=== PATIENT | female | born 1940 | race Caucasian/White ===

== ENCOUNTER 2024-04-08 21:24 | Inpatient (IN) | payer MEDICARE, BC, SELFPAY ==
[2024-04-08 14:22] VITALS: BP 128/67
--- NOTE | 2024-04-08 15:44 | ED.GENMED ---
History of Present Illness
General
Chief Complaint: Bowel Problem
Source: patient and other (Friend)
Exam Limitations: none
Time Seen by Provider: 04/08/24 15:20
History of Present Illness
History of Present Illness:
83-year-old female has not had a bowel movement in 3 weeks. Using Colace and prunes. Appetite has been okay. No vomiting. No fever. History of slight irregular bowel movements especially when she goes away which she has.
Past History
Past History
ED Past Medical History: HTN and Hypercholesterolemia; Negative Asthma or NIDDM
ED Past Surgical History: Orthopedic (Back surgery Oct 14 2018)
Social History
Tobacco: Non-smoker
Alcohol: Occasional
Personal:
Living: with family
Review of Systems
Review of Systems
All Other Systems: Not applicable
Constitutional: Denies fever
ABD/GI: Denies vomiting or diarrhea
Phy Exam
Physical Exam
Physical Exam:
GENERAL: Alert and oriented in no apparent distress
EYE: Orbits normal.
NECK: Supple
CARDIAC: Regular rate and rhythm without any obvious murmurs.
LUNGS: Clear breath sounds,normal
ABDOMEN: Soft, bowel sounds present. No distention. Minimal nonlocalizing lower abdominal tenderness. No rebound or guarding no mass or hernia. No stool in the rectal vault
NEUROLOGICAL: Alert and oriented , grossly non-focal
SKIN: Warm and dry, no rash or lesion, no discoloration, skin intact.
MUSCULOSKELETAL: No edema,no deformity.Good color
PSYCH: Normal and appropriate interaction.
Course
Orders/Labs/Results
Orders:
Orders
04/08/24 16:04
CT Abd/pel W Iv And Oral Contr Urgent
Comment:
Reason For Exam: Lower abdominal pain/change in bowel pattern
IV Insert/Care/Rem.- Treatment PRN
0.9% Sodium Chloride 500 ml [Nss] 500 ml IV BOLUS
Iohexol [Omnipaque] See Protocol PO NOW STA
04/08/24 16:35
Complete Blood Count/With Diff Urgent
Comprehensive Metabolic Panel Urgent
Lipase Urgent
04/08/24 20:39
Piperacillin/Tazo 3.375 Gram [Zosyn] 3.375 gram in 50 ml IV NOW
04/08/24 21:09
Admit/Transfer Patient As Directed
Co-Sign Provider:
Level of Care: Inpatient admission
Assign to:: Medical/Surgical
Physician / Group: soha
Diagnosis: abscess
Reason for Hospitalization: abscess
Expected length of stay greater than two midnights?: Yes
ELOS- Estimated Length of Stay in days: 3
I certify the patient meets the requirements for IP care: Yes
04/08/24 21:10
PRN Pain Medication Management As Directed
May give lesser potent ordered pain med per pt: Yes
preference::
Protocol:: Medication orders for pain may be administered in a
manner that supports deferring to patient preference
when the pt is:
- Requesting an ordered lesser potent pain medication.
Least to most potent pain medications are defined
as: acetaminophen < NSAID < tramadol < opioids
(morphine, oxycodone, hydromorphone).
- Requesting a lesser dose of the same medication IF
ORDERED.
- Requesting a less intrusive route of administration
if both routes are prescribed by the provider (PO <
IV).
04/08/24 21:11
Code Status As Directed
Resuscitation Status: Full Code
04/08/24 22:00
Flush (0.9% Sodium Chloride) [Flush (Nss)] See Dose Instructions IV PER PROTOCOL
Abnormal Lab Results
04/08/24
16:35
RBC 3.96 L 10^6/uL
(4.20-5.40)
Hgb 10.3 L g/dL
(12.0-16.0)
Hct 31.9 L %
(37.0-47.0)
MCV 80.6 L fL
(81.0-99.0)
MCH 26.0 L pg
(27.0-31.0)
MCHC 32.3 L g/dL
(33.0-37.0)
Abs Immat Gran (auto) 0.1 H 10^3/uL
(0-0.05)
Absolute Neuts (auto) 8.1 H 10^3/uL
(1.4-6.5)
Absolute Monos (auto) 0.8 H 10^3/uL
(0.1-0.6)
Neutrophils % 78.9 H %
(42.2-75.2)
Lymphocytes % 12.3 L %
(20.5-51.1)
BUN 18 H mg/dl
(7-17)
Total Protein 5.9 L g/dl
(6.3-8.2)
Albumin 3.3 L g/dl
(3.5-5.0)
04/08/24 16:35
04/08/24 16:35
Vital Signs
Initial and Last Documented VS:
Initial Vital Signs
Temp Pulse Resp BP Pulse Ox
98.3 F 81 16 128/67 98
04/08/24 14:22 04/08/24 14:22 04/08/24 14:22 04/08/24 14:22 04/08/24 14:22
Last Documented Vital Signs
Temp Pulse Resp BP Pulse Ox
98.3 F 81 16 128/67 98
04/08/24 14:22 04/08/24 14:22 04/08/24 14:22 04/08/24 14:22 04/08/24 14:22
MDM/Problems Addressed
Differential Diagnosis Includes:
Patient with a change in her bowel habits over the last 3 weeks. Clinically nonsurgical abdomen. Rectal exam will be done. If patient has a fecal impaction we will manage this without further testing. However if there is no obvious explanation
for this change she will receive labs and a CT scan to rule out more serious etiology
*Radiology
Radiology exam reviewed: radiology read reviewed (Diverticular abscess with fistula)
*Pulse Oximetry
Patient hypoxic: no
*Critical Care Note
Total Time (30-74mins, 75-104mins- exclusive of procedures): Not Applicable
Data Reviewed
Review of Other/Old Records Reveals: Labs and Testing
Update Note
Update Note:
Rectal exam with no significant stool. Because of the lower abdominal discomfort and change in bowel pattern CT and labs are pending
ED Attending Note
-
Portions of this chart may have been created with voice recognition software.� Occasional wrong word or��sound alike� substitutions may have occurred due to the inherent limitations of voice recognition software.
Discharge Plan
Departure
Patient Disposition: Admit
Date of Disposition: 04/08/24
Time of Disposition: 20:40
Presentation/result/management discussed w/ accepting MD/DO: Hospitalist
Discharge Problem:
Diverticular abscess with fistula
Prescriptions:
No Action
losartan 50 mg Tablet
50 mg PO DAILY
atorvastatin 10 mg Tablet
10 mg PO DAILY
cyanocobalamin (vitamin B-12) 1,000 mcg Tablet
1,000 mcg PO DAILY
ferrous sulfate 325 mg (65 mg iron) Tablet
325 mg PO DAILY
carbidopa-levodopa 25-100 mg Tablet
1 tab PO TID@0800,1330,1930
Patient Comments:
04/08/24: Patient states she missed her 19:30 dose today
cholecalciferol (vitamin D3) [Vitamin D3] 25 mcg (1,000 unit) Tablet
25 mcg PO DAILY
Referrals:
Barbie Lay MD [Family Provider] -
Interventions
Interventions:
*Risk Screen - Suicide Last Done: 04/08/24 14:24
*General Assessment Last Done: 04/08/24 14:24
*Neglect/Abuse Screening Last Done: 04/08/24 14:24
*ED COVID-19 Vaccine History Last Done: 04/08/24 15:28
[facility] Assessment Last Done: 04/08/24 15:28
Discharge Date and Time
Print Language: FRENCH
[2024-04-08 16:30] VITALS: BP 136/74
[2024-04-08] MEDS: NSS 500 IV (16:37)
[2024-04-08] MEDS: OMNIPAQUE 50 ML PO (16:52)
[2024-04-08 17:01] LABS: % Basophils 0.3 % (0-2); % Eosinophils 0.7 % (0-6); % Immature Granulocytes 0.5 % (0-0.5); % Lymphocytes 12.3 % (20.5-51.1); % Monocytes 7.3 % (1.7-9.3); % Neutrophils 78.9 % (42.2-75.2); Absolute Eosinophils 0.1 10^3/uL (0-0.7); Absolute Immature Granulocytes 0.1 10^3/uL (0-0.05); Absolute Lymphocytes 1.3 10^3/uL (1.2-3.4); Absolute Monocytes 0.8 10^3/uL (0.1-0.6); Absolute Neutrophils 8.1 10^3/uL (1.4-6.5); Hematocrit 31.9 % (37.0-47.0); Hemoglobin 10.3 g/dL (12.0-16.0); Mean Corp Hgb Conc. 32.3 g/dL (33.0-37.0); Mean Corpuscular Volume 80.6 fL (81.0-99.0); Mean Platelet Volume 8.9 fL (7.4-10.4); Nucleated Red Blood Cells % 0 %; Platelet Count 307 10^3/uL (130-400); Red Blood Cell Count 3.96 10^6/uL (4.20-5.40); Red Cell Dist. Width 13.8 % (11.5-14.5); White Blood Cell Count 10.3 10^3/uL (4.8-10.8)
[2024-04-08 17:05] VITALS: BP 150/82
[2024-04-08 17:18] LABS: ALT (SGPT) < 10 U/L (0-35); AST (SGOT) 18 U/L (14-36); Albumin 3.3 g/dl (3.5-5.0); Alkaline Phosphatase 86 U/L (38-126); Blood Urea Nitrogen 18 mg/dl (7-17); Calcium 8.8 mg/dl (8.4-10.2); Carbon Dioxide 27 mmol/L (22-30); Chloride 104 mmol/L (98-107); Glucose 91 mg/dl (70-99); Lipase 54 U/L (23-300); Potassium 3.8 mmol/L (3.5-5.1); Sodium 138 mmol/L (135-145); Total Bilirubin 0.6 mg/dl (0.2-1.3); Total Protein 5.9 g/dl (6.3-8.2); eGFR > 60.00
[2024-04-08 18:00] VITALS: BP 147/76
--- NOTE | 2024-04-08 20:42 | HPS.HSE ---
Family Physician
-
Family Physician: Barbie Lay
Chief Complaint
-
constipation
abdominal distention
History of Present Illness
83-year-old female with past medical history for hypertension, hyperlipidemia, Parkinson's disease presented to us with constipation for the past 3 weeks. has not had a bowel movement in one week. stated intermittent small hard stools for past
three weeks but no BM in one week. denied n/v/ abdominal pain. her appetite is good. Using Colace and prunes. denied fever chills, headache, dizziness, syncopal episode. Patient denied chest pain or short of breath. Patient denied
dysuria,hematuria.
CT with CT findings compatible with a left pelvic peridiverticular abscess. This abscess extends to the left superior bladder wall and there is air within the anterior bladder lumen. Findings are considered suspicious for a colovesical fistula as a
result of diverticulitis. As an alternative, if the patient has been recently catheterized, air could've been introduced into the bladder from catheterization.
Patient received a dose of Zosyn in ER. Admitting for further management
Medical History
Past Medical History
Past Medical History: Reports Other
Additional Past Medical History:
Right lumbar radiculopathy
Degenerative disc disease
Hyperlipidemia
GI bleed
Left rotator cuff tear
osteoarthritis
Anxiety
Hypertension
Parkinson's
Past Surgical History: Reports Other
Additional Past Surgical History:
Laminectomy
Social History
Tobacco: Non-smoker
Alcohol: Occasional
Drug: None
Personal: Single
Living: Alone
Family History
Family History: Not pertinent
Allergies / Home Medications
Allergies reflects when Allergies were last updated in [facility].
Home Medications with original date entered in [facility]
Allergy/Medication List:
Allergies
Allergy/AdvReac Type Severity Reaction Status Date / Time
No Known Allergies Allergy Verified 04/08/24 14:22
Home Medications
atorvastatin 10 mg tablet 10 mg PO DAILY 04/08/24
carbidopa 25 mg-levodopa 100 mg tablet 1 tab PO TID@0800,1330,1930 04/08/24
cholecalciferol (vitamin D3) 25 mcg (1,000 unit) tablet (Vitamin D3) 25 mcg PO DAILY 04/08/24
cyanocobalamin (vitamin B-12) 1,000 mcg tablet 1,000 mcg PO DAILY 04/08/24
ferrous sulfate 325 mg (65 mg iron) tablet 325 mg PO DAILY 04/08/24
losartan 50 mg tablet 50 mg PO DAILY 04/08/24
Review of Systems
-
Constitutional: Reports No Symptoms
EENT: Reports No Symptoms
Respiratory: Reports No Symptoms
Cardiac: Reports No Symptoms
Abdomen/GI: Reports No Symptoms and Constipated
: Reports No Symptoms
Musculoskeletal: Reports No Symptoms
Skin: Reports No Symptoms
Neurological: Reports No Symptoms
Endocrine: Reports No Symptoms
Hematologic/Lymphatic: Reports No Symptoms
Psych: Reports No Symptoms
Physical Exam
Vital Signs
Vital Signs
Temp Pulse Resp BP Pulse Ox
98.3 F 81 16 128/67 98
04/08/24 14:22 04/08/24 14:22 04/08/24 14:22 04/08/24 14:22 04/08/24 14:22
Physical Exam
General: Well Developed, Well Nourished and No Apparent Distress
HEENT: NormoCephalic, Moist mucous membranes and Atraumatic
Respiratory: Clear
Cardiac: S1/S2 and Regular Rhythm; No Murmur or Rub
GI: Soft, Normal Bowel Sounds, Tender (Left lower quadrant) and Distended; No Organomegaly
Rectal: Deferred by Provider
Musculoskeletal: No Clubbing, No Cyanosis and No Edema
Skin: No Rash
Neuro: AO x 3 and Nonfocal/grossly intact
Psych: Calm
Laboratory Results
-
04/08/24 16:35
04/08/24 16:35
Laboratory Results
Total Bilirubin 0.6 mg/dl (0.2-1.3) 04/08/24 16:35
AST 18 U/L (14-36) 04/08/24 16:35
ALT < 10 U/L (0-35) 04/08/24 16:35
Alkaline Phosphatase 86 U/L (38-126) 04/08/24 16:35
Lipase 54 U/L (23-300) 04/08/24 16:35
Data Reviewed
-
CT Scan: Report Reviewed by me
Lab Data: Labs Reviewed by me
Impression/Plan
-
# Diverticular abscess/partial colonic obstruction
-CT abdomen pelvis with impression of CT findings compatible with a left pelvic peridiverticular abscess. This abscess extends to the left superior bladder wall and there is air within the anterior bladder lumen. Findings are considered suspicious
for a colovesical fistula as a result of diverticulitis. As an alternative, if the patient has been recently catheterized, air could've been introduced into the bladder from catheterization.No evidence of free intraperitoneal air.Moderate to large
amount of stool within the colon proximal to the region of diverticulitis, suggesting constipation/partial colonic obstruction. No significant dilation of small bowel loops.Coronary artery calcifications. Please correlate with symptoms of and risk
factors for coronary artery disease, with further workup as clinically appropriate.Aortic valvular calcifications. Please correlate with any clinical signs or symptoms that would suggest significant aortic stenosis.Cholelithiasis. No CT findings to
suggest acute cholecystitis.8 mm calcification within the left anterior uterus, likely a small calcified fibroid.Bony degenerative changes as described.
-iv Zosyn continued
-Tylenol prn for fever
-Clear liquid diet
-colorectal consulted
# Anemia likely iron deficiency
-ferrous sulfate
-Hemoglobin 10.3
-No active bleeding
-Continue to monitor
# Hypertension
-Blood pressure stable in ER
-Losartan continued
# Hyperlipidemia
-Lipitor continued
# History of Parkinson's
-Carbidopa continued
# DVT prophylaxis
-Subcu heparin
#CODE status
-full code
--- NOTE | 2024-04-08 21:13 | W.PN.UPDATE ---
Update Note
Progress Note Update
This is an addendum to the H&P written by Sil Lord on 04/08/2024. Patient seen and examined independently with [employer].
83-year-old female past medical history of Parkinson disease, hypertension, hypercholesterolemia presenting with constipation for the last several weeks with abdominal distention and some left lower quadrant abdominal pain. No urinary symptoms.
CT scan shows evidence of diverticulitis with left pelvic peridiverticular abscess. Abscess extends to the left superior bladder wall area within the anterior bladder lumen suspicious for colovesicular fistula. There is also evidence of partial
colonic obstruction. IV fluids given in ER. Clear liquid diet. Zosyn. Colorectal surgery consulted.
[2024-04-08] MEDS: ZOSYN 50 IV (21:26)
[2024-04-08 22:00] VITALS: BP 145/72
[2024-04-09] VITALS (9 sets, daily range): BP systolic 121–147; BP diastolic 66–83; PULSE 85; O2SAT 98; BMI 25.0; BMI 26.3
[2024-04-09] MEDS: ZOSYN 50 IV ×4 (03:42→21:48)
[2024-04-09 06:46] LABS: Hematocrit 33.3 % (37.0-47.0); Hemoglobin 10.7 g/dL (12.0-16.0); Mean Corp Hgb Conc. 32.1 g/dL (33.0-37.0); Mean Corpuscular Hgb 26.4 pg (27.0-31.0); Mean Platelet Volume 9.1 fL (7.4-10.4); Platelet Count 283 10^3/uL (130-400); Red Blood Cell Count 4.06 10^6/uL (4.20-5.40); Red Cell Dist. Width 13.6 % (11.5-14.5); White Blood Cell Count 12.4 10^3/uL (4.8-10.8)
[2024-04-09 06:55] LABS: Blood Urea Nitrogen 14 mg/dl (7-17); Calcium 8.6 mg/dl (8.4-10.2); Carbon Dioxide 27 mmol/L (22-30); Chloride 105 mmol/L (98-107); Estimated Creatinine Clearance 37 ml/min; Glucose 81 mg/dl (70-99); Potassium 3.9 mmol/L (3.5-5.1); Sodium 138 mmol/L (135-145); eGFR > 60.00
[2024-04-09] MEDS: LIPITOR 10 MG PO (08:13)
[2024-04-09] MEDS: HEPARIN 5000 UNITS SC ×2 (08:16→20:26)
[2024-04-09] MEDS: SINEMET 25-100 1 TABLET PO ×3 (08:16→20:00)
--- NOTE | 2024-04-09 09:17 | CON.CRS ---
Consultation
-
Reason for Consultation: diverticulitis
Medical History
-
Chief Complaint: constipation
History of Present Illness:
83-year-old female with no prior history of diverticulitis in the ER with 6 severe constipation as a main complaint. On discussion she describes having no bowel movements for 3 weeks. However on sorting out details, it sounds like 3 weeks ago she
started having small pebble-like BMs and has not had any passage of material transanally for about a week. She does admit to flatus however. Denies nausea or vomiting. Denies fevers or chills. Denies pain. Denies dysuria. No history of UTIs.
Blood work last night revealed elevated white blood cell count of 12.4. Vitals reasonable. CT scan abdomen and pelvis performed. Images and report reviewed. I reviewed them with Dr. Kaplan of interventional radiology. This reveals sigmoid
diverticulosis with likely diverticulitis with small abscess between the sigmoid colon and the bladder which is not amenable to IR drain placement. There is an air-fluid level in the bladder most likely consistent with colovesical fistula. There
is a decent amount of stool throughout the colorectum. The report relates that there may be at least partial large bowel obstruction. Dr. Kaplan was not impressed with this aspect. Of note the patient has no prior history abdominal surgeries.
She has been tolerating a diet. She has undergone colonoscopies in the past and the [facility] area. Her last was maybe 6 years ago. She relates that she has had no polyps but has had diverticulosis. She was told she needs no further
colonoscopies given age
Past Medical History
Past Medical History: HTN, Hypercholesterolemia, Psychiatric (Anxiety) and Other (Parkinson's)
Past Surgical History: Other (Back surgery)
Social History
Tobacco: Non-Smoker
Alcohol: Occasional
Living: Alone
Family History
Family History: Reviewed & Not Pertinent
Allergies / Home Medications
Allergy/AdvReac Type Severity Reaction Status Date / Time
No Known Allergies Allergy Verified 04/08/24 14:22
�Medication �Instructions �Recorded �Confirmed �Type
atorvastatin 10 mg tablet 10 mg PO DAILY 04/08/24 04/08/24 History
carbidopa 25 mg-levodopa 100 mg 1 tab PO TID@0800,1330,1930 04/08/24 04/08/24 History
tablet
cholecalciferol (vitamin D3) 25 25 mcg PO DAILY 04/08/24 04/08/24 History
mcg (1,000 unit) tablet (Vitamin
D3)
cyanocobalamin (vitamin B-12) 1,000 mcg PO DAILY 04/08/24 04/08/24 History
1,000 mcg tablet
ferrous sulfate 325 mg (65 mg 325 mg PO DAILY 04/08/24 04/08/24 History
iron) tablet
losartan 50 mg tablet 50 mg PO DAILY 04/08/24 04/08/24 History
Review of Systems
-
A 10 point review of systems was completed, and was negative except as per HPI.
Physical Exam
Vital Signs
Temp 98.5 F 04/09/24 01:49
Pulse 80 04/09/24 03:52
Resp Rate 16 04/09/24 03:52
Blood pressure 144/66 04/09/24 03:52
SaO2 96 04/09/24 03:52
04/08/24 04/09/24 04/10/24
06:59 06:59 06:59
Actual Weight 60 kg
Body Mass Index (BMI) 25.0
Lab Results / Allergies
04/09/24 06:20
04/09/24 06:20
WBC 12.4 10^3/uL (4.8-10.8) H 04/09/24 06:20
Hgb 10.7 g/dL (12.0-16.0) L 04/09/24 06:20
Hct 33.3 % (37.0-47.0) L 04/09/24 06:20
Plt Count 283 10^3/uL (130-400) 04/09/24 06:20
Abs Immat Gran (auto) 0.1 10^3/uL (0-0.05) H 04/08/24 16:35
Neutrophils % 78.9 % (42.2-75.2) H 04/08/24 16:35
Allergy/AdvReac Type Severity Reaction Status Date / Time
No Known Allergies Allergy Verified 04/08/24 14:22
Physical Exam
General: Well Developed
Cardiac: Regular Rhythm
GI: Soft, Non Tender and Distended (Mild)
Musculoskeletal: No Clubbing, No Cyanosis and No Edema
Skin: Warm and Dry
Neuro: AO x 3
Psych: Calm
Data Reviewed
-
CT Scan: Image Personally Visualized and interpreted, Report Reviewed by me, Discussed with Physician and Discussed with Patient
Labs: Labs Reviewed by me and Discussed with Patient
Assessment / Plan
-
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 Interestingly no tenderness on exam. Denies urinary symptoms as well.
Her main complaint is obstipation.
Plan:
1. Agree with admission for IV antibiotics.
2. Agree with diet restriction.
3. Check urinalysis.
4. On discussion with Dr. Kaplan regarding the question of partial large bowel obstruction or stricture, he suggested plain abdominal x-rays. The oral contrast may have moved through. As a backup CT of the pelvis would be an option. Will order
the abdominal x-ray and go from there.
5. Hopefully we can get this patient through this hospitalization without surgery, which may require colostomy. If she avoids surgery during this admission, she will need follow-up with us for likely planned elective sigmoidectomy with takedown of
fistula.
6. Will follow along.
[2024-04-09] MEDS: COZAAR PO (11:09)
[2024-04-09 11:27] LABS: Urine Albumin Trace (Neg - Trace); Urine Bilirubin Negative (Negative); Urine Character Clear (Clear); Urine Color Yellow; Urine Glucose Negative (Negative); Urine Ketone Negative (Negative); Urine Leukocyte 2+ (Negative); Urine Nitrite Negative (Negative); Urine Occult Blood 2+ (Negative); Urine Urobilinogen Negative (Neg - 1+)
[2024-04-09 11:33] LABS: Urine Bacteria Few (Negative); Urine Squamous Cell 21-25 /LPF (Few); Urine White Cell 30-40 /HPF (0-5)
--- NOTE | 2024-04-09 12:49 | W.PN.UPDATE ---
Update Note
Progress Note Update
Patient's abdominal plain film reviewed. Oral contrast in small bowel and right colon. Has not reached rectosigmoid as of yet. It was described as a 'nonobstructive pattern '. Will order fleets enema. Repeat abdominal x-ray ordered for a.m. as
well.
--- NOTE | 2024-04-09 13:01 | W.PN.HOSP.TC ---
Today's Communication/Plan
-
Monitor vital signs stable
Received enema today
Continue antibiotics
N.p.o. for now
Abdomen x-ray tomorrow
Assessment / Plan
Assessment / Plan
General: Well Developed, Well Nourished and No Apparent Distress
HEENT: NormoCephalic, Moist mucous membranes and Atraumatic
Respiratory: Clear
Cardiac: S1/S2 and Regular Rhythm; No Murmur or Rub
GI: Soft, Normal Bowel Sounds, Tender (Left lower quadrant) and Distended
Musculoskeletal: No Edema
Neuro: AO x 3 and Nonfocal/grossly intact
Psych: Calm
-CT abdomen pelvis with impression of CT findings compatible with a left pelvic peridiverticular abscess. This abscess extends to the left superior bladder wall and there is air within the anterior bladder lumen. Findings are considered suspicious
for a colovesical fistula as a result of diverticulitis. As an alternative, if the patient has been recently catheterized, air could've been introduced into the bladder from catheterization.No evidence of free intraperitoneal air.Moderate to large
amount of stool within the colon proximal to the region of diverticulitis, suggesting constipation/partial colonic obstruction. No significant dilation of small bowel loops.Coronary artery calcifications. Please correlate with symptoms of and risk
factors for coronary artery disease, with further workup as clinically appropriate.Aortic valvular calcifications. Please correlate with any clinical signs or symptoms that would suggest significant aortic stenosis.Cholelithiasis. No CT findings to
suggest acute cholecystitis.8 mm calcification within the left anterior uterus, likely a small calcified fibroid.Bony degenerative changes as described.
Diverticular abscess/partial colonic obstruction
-iv Zosyn continued
-Tylenol prn for fever
NPO
-colorectal following. Discussed operative and nonoperative management with patient. Currently managing nonoperatively with serial x-ray.
constipated; cw enema
Suspect UTI
Continue antibiotics
Follow urine culture
# Anemia likely iron deficiency
-ferrous sulfate
-No active bleeding
-Continue to monitor
# Hypertension
-Losartan continued
# Hyperlipidemia
-Lipitor continued
# History of Parkinson's
-Carbidopa continued
# DVT prophylaxis
-Subcu heparin
#CODE status
-full code
Anticipated Discharge: > 48 hours
Subjective/Interval History
-
Date of Service: April 09, 2024
denies pain
Objective Data
-
Labs:
Laboratory Results
04/09/24
06:20
WBC 12.4 H
Hgb 10.7 L
Hct 33.3 L
Plt Count 283
Sodium 138
Potassium 3.9
Chloride 105
Carbon Dioxide 27
BUN 14
Creatinine 0.9
Glucose 81
Calcium 8.6
Vital Signs:
Vital Signs
Temp Pulse Resp BP Pulse Ox
98.5 F 80 16 144/66 96
04/09/24 01:49 04/09/24 03:52 04/09/24 03:52 04/09/24 03:52 04/09/24 03:52
I&O
04/08/24 04/09/24 04/10/24
06:59 06:59 06:59
Output Total 525 / 525
Balance -525 / -525
[2024-04-09] MEDS: FLEET PHOSPHATE ENEMA-ADULT 135 ML RECTAL (13:24)
--- NOTE | 2024-04-09 15:47 | PTOTSP ---
Physician: Please provide OT Evaluation and Treat order to allow assessment of ALS. thank you
[2024-04-10] MEDS: ZOSYN 50 IV ×4 (03:29→22:13)
[2024-04-10 07:00] VITALS: BP 124/70
[2024-04-10] MEDS: LIPITOR 10 MG PO (07:47)
[2024-04-10] MEDS: SINEMET 25-100 1 TABLET PO ×3 (07:47→19:28)
[2024-04-10] MEDS: COZAAR 50 MG PO (07:47)
[2024-04-10] MEDS: HEPARIN 5000 UNITS SC ×2 (07:49→19:28)
[2024-04-10 08:31] LABS: Blood Urea Nitrogen 17 mg/dl (7-17); Calcium 9.1 mg/dl (8.4-10.2); Carbon Dioxide 23 mmol/L (22-30); Chloride 101 mmol/L (98-107); Estimated Creatinine Clearance 33 ml/min; Glucose 52 mg/dl (70-99); Potassium 3.8 mmol/L (3.5-5.1); Sodium 139 mmol/L (135-145); eGFR 50.48
[2024-04-10 09:08] LABS: Glucose - Point of Care 76 mg/dl (70-99)
[2024-04-10 09:22] LABS: Hematocrit 37.9 % (37.0-47.0); Mean Corp Hgb Conc. 31.7 g/dL (33.0-37.0); Mean Platelet Volume 9.5 fL (7.4-10.4); Platelet Count 352 10^3/uL (130-400); Red Blood Cell Count 4.62 10^6/uL (4.20-5.40); White Blood Cell Count 13.3 10^3/uL (4.8-10.8)
--- NOTE | 2024-04-10 11:48 | W.PN.HOSP.TC ---
Today's Communication/Plan
-
Monitor vital signs and see plan
Continue to monitor
Leukocytosis noted
Surgery to see today
Abdominal x-ray
Assessment / Plan
Assessment / Plan
General: Well Developed, Well Nourished and No Apparent Distress
HEENT: NormoCephalic, Moist mucous membranes and Atraumatic
Respiratory: Clear
Cardiac: S1/S2 and Regular Rhythm; No Murmur or Rub
GI: Soft, Normal Bowel Sounds, Tender (Left lower quadrant) and Distended
Musculoskeletal: No Edema
Neuro: AO x 3 and Nonfocal/grossly intact
Psych: Calm
-CT abdomen pelvis with impression of CT findings compatible with a left pelvic peridiverticular abscess. This abscess extends to the left superior bladder wall and there is air within the anterior bladder lumen. Findings are considered suspicious
for a colovesical fistula as a result of diverticulitis. As an alternative, if the patient has been recently catheterized, air could've been introduced into the bladder from catheterization.No evidence of free intraperitoneal air.Moderate to large
amount of stool within the colon proximal to the region of diverticulitis, suggesting constipation/partial colonic obstruction. No significant dilation of small bowel loops.Coronary artery calcifications. Please correlate with symptoms of and risk
factors for coronary artery disease, with further workup as clinically appropriate.Aortic valvular calcifications. Please correlate with any clinical signs or symptoms that would suggest significant aortic stenosis.Cholelithiasis. No CT findings to
suggest acute cholecystitis.8 mm calcification within the left anterior uterus, likely a small calcified fibroid.Bony degenerative changes as described.
Diverticular abscess/partial colonic obstruction
-iv Zosyn continued
-Tylenol prn for fever
NPO
-colorectal following. Discussed operative and nonoperative management with patient. Currently managing nonoperatively with serial x-ray.
constipated; cw enema
xray today pending
Suspect UTI
dysuria,increase frequency
Continue antibiotics
urine culture contaminant
# Anemia likely iron deficiency
-ferrous sulfate
-No active bleeding
-Continue to monitor
# Hypertension
-Losartan continued
# Hyperlipidemia
-Lipitor continued
# History of Parkinson's
-Carbidopa continued
# DVT prophylaxis
-Subcu heparin
#CODE status
-full code
I spent a total of 51 minutes with the patient or on the floor. More than 50% of this time involved counseling and coordination of care.
Anticipated Discharge: > 48 hours
Subjective/Interval History
-
Date of Service: April 10, 2024
denies nausea
Objective Data
-
Labs:
Laboratory Results
04/10/24
07:02
WBC 13.3 H
Hgb 12.0
Hct 37.9
Plt Count 352 D
Sodium 139
Potassium 3.8
Chloride 101
Carbon Dioxide 23
BUN 17
Creatinine 1.1 H
Glucose 52 L*
Calcium 9.1
Vital Signs:
Vital Signs
Temp Pulse Resp BP Pulse Ox
97.8 F 90 18 124/70 99
04/10/24 07:00 04/10/24 07:00 04/10/24 07:00 04/10/24 07:00 04/10/24 07:50
I&O
04/09/24 04/10/24 04/11/24
06:59 06:59 06:59
Output Total 525 / 525
Balance -525 / -525
[2024-04-10] MEDS: D5/0.9% SODIUM CHLORIDE 1000 IV (12:28)
[2024-04-10 13:16] VITALS: BMI 26.3
--- NOTE | 2024-04-10 14:04 | W.PN.GS2 ---
Addendum entered and electronically signed by Damian Ricci MD 04/10/24 15:23:
Patient seen and examined with surgical PRESS HAND. Agree with documented progress note. This is a delayed entry.
Overall patient states that she is feeling better still with some discomfort. Denies pain. Several stools after enema yesterday.
AFVSS
NAD AAOx3; sitting up comfortably in the chair at her hospital bedside.
Abdomen: Soft, protuberant, nontender.
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
Clinically improving will start on trial of
Clears
Follow-up abdominal x-ray tomorrow to monitor for progression of previously administered oral contrast.
Original Note:
Today's Communication / Plan
-
Trial of clears
Assessment / Plan
-
83 yo female presenting with no BM x3 weeks with CT imaging demonstrating sigmoid diverticulitis with abscess extending into the left superior bladder wall with air into the bladder lumen suggestive of colovesical fistula, large stool burden.
AFVSS
Mild leukocytosis, trending up
Urine cx with multiple organisms
No pain/tenderness
+BM after enema
XR in follow up with PO contrast which has not progressed beyond the proximal colon
--Trial of clears
--Continue ABX
--Trend labs/exams
--XR in am
No plans for emergent surgery but may require surgical intervention this admission vs planned elective surgery after recovered from this current illness
Subjective Data
-
Date of Service: April 10, 2024
Patient seen and examined at bedside with Dr. Ricci. Denies n/v. Feels quite hungry. Passed a large stool s/p enema and several small stools with voids. Denies pain.
Objective Data
-
Intake and Output
0804/10/24 04/11/24
06:59 06:59 06:59
Output Total 525 / 525
Balance -525 / -525
Output:
Urine, Voided 525 / 525
Other:
Number of approximated MODERATE 2
amounts of urine
Vital Signs
Temp Pulse Resp BP Pulse Ox
97.8 F 90 18 124/70 99
04/10/24 07:00 04/10/24 07:00 04/10/24 07:00 04/10/24 07:00 04/10/24 07:50
Lab Results
04/10/24 07:02
04/10/24 07:02
Calcium 9.1 mg/dl (8.4-10.2) 04/10/24 07:02
Total Bilirubin 0.6 mg/dl (0.2-1.3) 04/08/24 16:35
AST 18 U/L (14-36) 04/08/24 16:35
ALT < 10 U/L (0-35) 04/08/24 16:35
Alkaline Phosphatase 86 U/L (38-126) 04/08/24 16:35
Total Protein 5.9 g/dl (6.3-8.2) L 04/08/24 16:35
Albumin 3.3 g/dl (3.5-5.0) L 04/08/24 16:35
Physical Exam
-
NAD
ABD softly distended, NT, PRESS HAND
--- NOTE | 2024-04-10 14:18 | CM ---
branch general manager reviewed patient's chart and met with patient and patient states she lives alone in a 2 story home with one step to enter, patient is independent with adl's and ambulation, no dme, patient drives.
Pharm[facility]: [facility]
PCP: Dr. Lay
Plan; Home when stable.
[2024-04-10 15:00] VITALS: BP 91/61
[2024-04-10 23:05] VITALS: BP 116/66
[2024-04-11] MEDS: ZOSYN 50 IV ×4 (04:26→21:52)
[2024-04-11] MEDS: COZAAR 50 MG PO (07:50)
[2024-04-11 07:51] VITALS: BP 128/72
[2024-04-11] MEDS: LIPITOR 10 MG PO (07:51)
[2024-04-11] MEDS: HEPARIN 5000 UNITS SC ×2 (07:51→19:43)
[2024-04-11] MEDS: SINEMET 25-100 1 TABLET PO ×3 (07:54→19:43)
[2024-04-11 09:18] LABS: Blood Urea Nitrogen 18 mg/dl (7-17); Calcium 8.7 mg/dl (8.4-10.2); Carbon Dioxide 26 mmol/L (22-30); Chloride 103 mmol/L (98-107); Estimated Creatinine Clearance 40 ml/min; Glucose 130 mg/dl (70-99); Potassium 3.7 mmol/L (3.5-5.1); Sodium 137 mmol/L (135-145); eGFR > 60.00
[2024-04-11] MEDS: D5/0.9% SODIUM CHLORIDE 1000 IV (10:37)
--- NOTE | 2024-04-11 10:45 | W.PN.GS2 ---
Addendum entered and electronically signed by Damian Ricci MD 04/11/24 12:40:
Patient seen and examined with nurse practitioner. Agree with documented progress note.
Patient continues to report no significant symptoms. Denies abdominal pain, denies nausea, denies vomiting.
Passing flatus on occasion and some semisolid stool.
AFVSS
NAD AAOx3
ABD: Softly protuberant, nontender
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
Clinically improving
Full liquid diet
Original Note:
Today's Communication / Plan
-
Full liquids
Assessment / Plan
-
83 yo female presenting with no BM x3 weeks with CT imaging demonstrating sigmoid diverticulitis with abscess extending into the left superior bladder wall with air into the bladder lumen suggestive of colovesical fistula, large stool burden.
AFVSS
Labs for today pending
Urine cx with multiple organisms
No pain/tenderness
+BMs, tolerating clears
XR in follow up with PO contrast which has not progressed much beyond the proximal colon
--Advance to full liquids
--Continue ABX
--Trend labs/exams
No plans for emergent surgery but may require surgical intervention this admission vs planned elective surgery after recovered from this current illness
Subjective Data
-
Date of Service: April 11, 2024
Patient seen and examined at bedside with Dr. Ricci. Denies n/v. Denies pain. Notes she passed a stool this am with mixed liquid and solid material.
Objective Data
-
Intake and Output
04/10/24 04/11/24 04/12/24
06:59 06:59 06:59
Intake Total 820 / 820
Balance 820 / 820
Intake:
IV fluids (Total) 720 / 720
IV piggybacks 100 / 100
Other:
Number of approximated MODERATE 2 2
amounts of urine
Vital Signs
Temp Pulse Resp BP Pulse Ox
98.3 F 86 18 128/72 91
04/11/24 07:51 04/11/24 07:51 04/11/24 07:51 04/11/24 07:51 04/11/24 07:51
Lab Results
04/11/24 07:49
Calcium 8.7 mg/dl (8.4-10.2) 04/11/24 07:49
Total Bilirubin 0.6 mg/dl (0.2-1.3) 04/08/24 16:35
AST 18 U/L (14-36) 04/08/24 16:35
ALT < 10 U/L (0-35) 04/08/24 16:35
Alkaline Phosphatase 86 U/L (38-126) 04/08/24 16:35
Total Protein 5.9 g/dl (6.3-8.2) L 04/08/24 16:35
Albumin 3.3 g/dl (3.5-5.0) L 04/08/24 16:35
Physical Exam
-
NAD
ABD softly distended, NT, FINISHER SCREWDOWN
[2024-04-11 11:10] LABS: Hematocrit 34.7 % (37.0-47.0); Hemoglobin 11.6 g/dL (12.0-16.0); Mean Corp Hgb Conc. 33.4 g/dL (33.0-37.0); Mean Corpuscular Volume 80.7 fL (81.0-99.0); Mean Platelet Volume 9.7 fL (7.4-10.4); Platelet Count 301 10^3/uL (130-400); White Blood Cell Count 12.5 10^3/uL (4.8-10.8)
--- NOTE | 2024-04-11 11:53 | W.PN.HOSP.TC ---
Today's Communication/Plan
-
Monitor vital signs see plan
cw abx
Trial of fulls
Colorectal surgery following
Assessment / Plan
Assessment / Plan
General: Well Developed, Well Nourished and No Apparent Distress
HEENT: NormoCephalic, Moist mucous membranes and Atraumatic
Respiratory: Clear
Cardiac: S1/S2 and Regular Rhythm; No Murmur or Rub
GI: Soft, Normal Bowel Sounds, Tender (Left lower quadrant)
Musculoskeletal: No Edema
Neuro: AO x 3 and Nonfocal/grossly intact
Psych: Calm
-CT abdomen pelvis with impression of CT findings compatible with a left pelvic peridiverticular abscess. This abscess extends to the left superior bladder wall and there is air within the anterior bladder lumen. Findings are considered suspicious
for a colovesical fistula as a result of diverticulitis. As an alternative, if the patient has been recently catheterized, air could've been introduced into the bladder from catheterization.No evidence of free intraperitoneal air.Moderate to large
amount of stool within the colon proximal to the region of diverticulitis, suggesting constipation/partial colonic obstruction. No significant dilation of small bowel loops.Coronary artery calcifications. Please correlate with symptoms of and risk
factors for coronary artery disease, with further workup as clinically appropriate.Aortic valvular calcifications. Please correlate with any clinical signs or symptoms that would suggest significant aortic stenosis.Cholelithiasis. No CT findings to
suggest acute cholecystitis.8 mm calcification within the left anterior uterus, likely a small calcified fibroid.Bony degenerative changes as described.
Diverticular abscess/partial colonic obstruction
-iv Zosyn continued
-Tylenol prn for fever
trial of fulls per surgery
-colorectal following. Discussed operative and nonoperative management with patient. Currently managing nonoperatively with serial x-ray.
constipated
xray today slight progression of the oral contrast which now partially opacifies the transverse colon. Mild/moderate colonic stool burden.
Suspect UTI
dysuria,increase frequency; improving
Continue antibiotics; should cover for UTI
urine culture contaminant
# Anemia likely iron deficiency
-ferrous sulfate
-No active bleeding
-Continue to monitor
# Hypertension
-Losartan continued
# Hyperlipidemia
-Lipitor continued
# History of Parkinson's
-Carbidopa continued
# DVT prophylaxis
-Subcu heparin
#CODE status
-full code
Anticipated Discharge: 24 - 48 hours
Subjective/Interval History
-
Date of Service: April 11, 2024
denies pain
Objective Data
-
Labs:
Laboratory Results
04/11/24
07:49
WBC 12.5 H
Hgb 11.6 L
Hct 34.7 L
Plt Count 301
Sodium 137
Potassium 3.7
Chloride 103
Carbon Dioxide 26
BUN 18 H
Creatinine 0.9
Glucose 130 H
Calcium 8.7
Vital Signs:
Vital Signs
Temp Pulse Resp BP Pulse Ox
98.3 F 86 18 128/72 94
04/11/24 07:51 04/11/24 07:51 04/11/24 07:51 04/11/24 07:51 04/11/24 11:07
I&O
04/10/24 04/11/24 04/12/24
06:59 06:59 06:59
Intake Total 820 / 820
Balance 820 / 820
[2024-04-11] MEDS: ZOFRAN 4 MG IV (14:50)
[2024-04-11 15:19] VITALS: BP 106/60
--- NOTE | 2024-04-11 15:33 | PTCARENOTE ---
Diet increased to FULL liquids for lunch. Pt ate soup, custard and a few bites of ice cream and became nauseated and c/o 'retching a few times' Pt reports feeling as if food was refluxing and she felt flushed. Pt made NPO, notified and order
placed for NPO status and IV Zofran. IV ZOfran given and is effective for relief of nausea. Pt verbalizes understanding of NPO status and compliant. Pt is currently visiting with friends at bedside.
--- NOTE | 2024-04-11 16:51 | PTCARENOTE ---
Addendum entered by Ceci Snow RN 04/11/24 16:53:
Patient ambulating sosa with 1 assist and tolerated approx 480 feet
Original Note:
Patient OOB with rolling walker this am, gait very unsteady and rigid this am. Pt gait less rigid this afternoon with wheeled walker, but still appears unsteady gait and feet too close together causing off balance.
--- NOTE | 2024-04-11 19:04 | PTCARENOTE ---
No further nausea after IV Zofran and NPO initiated. Pt then ambulated to Bathroom for moderate amount of jeffrey loose BM. Pt states she also urinated a large amount. PVR done for 3ml
[2024-04-11 23:19] VITALS: BP 124/77
[2024-04-12] MEDS: ZOSYN 50 IV ×4 (04:06→23:39)
[2024-04-12 07:30] VITALS: BP 119/53
[2024-04-12] MEDS: D5/0.9% SODIUM CHLORIDE 1000 IV ×2 (07:35→17:21)
[2024-04-12] MEDS: COZAAR 50 MG PO (07:35)
[2024-04-12] MEDS: LIPITOR 10 MG PO (07:36)
[2024-04-12] MEDS: HEPARIN 5000 UNITS SC ×2 (07:36→19:54)
[2024-04-12] MEDS: SINEMET 25-100 1 TABLET PO ×3 (07:47→19:53)
--- NOTE | 2024-04-12 09:00 | W.PN.CRS1 ---
Today's Communication / Plan
-
Repeat CTAP
NPO/IVF, ok for PO meds
Assessment/Plan
-
83-year-old female with PMH HTN, HLD, Parkinson's, anxiety who presented with 1 week of constipation, WBC 13, CT showing diverticulitis with abscess and concern for colovesical fistula (oscar of air within the bladder); abscess not amenable to IR
drainage, treating nonoperatively
AFVSS
Labs pending
�Acute diverticulitis with abscess and concern for colovesical fistula
�Continue IV Zosyn
�Due to worsening nausea yesterday and mild distention today, will repeat CTAP with p.o. and IV contrast to assess abscess and other possible pathologies
� Continue n.p.o. with IVF, okay for p.o. meds
� Continue pain control with Tylenol, avoid narcotics if possible
� Continue DVT PPx with subQ heparin
� OOB/encourage IS
� Appreciate hospitalist
Subjective Data
Subjective Data
Date of Service: April 12, 2024
No overnight events.
Denies pain.
Denies nausea/vomiting. Had nausea and dry heaving yesterday afternoon.
+flatus +BMs (small, soft, X1 overnight) +voiding
Objective Data
-
Vital Signs
Temp Pulse Resp BP Pulse Ox
98.0 F 76 17 119/53 96
04/12/24 07:30 04/12/24 07:30 04/12/24 07:30 04/12/24 07:30 04/12/24 07:30
Intake & Output
04/11/24 04/12/24 04/13/24
06:59 06:59 06:59
Intake Total 820 / 820 2480 / 2480
Balance 820 / 820 2480 / 2480
Intake:
Oral fluids 900 / 900
IV fluids (Total) 720 / 720 1380 / 1380
IV piggybacks 100 / 100 200 / 200
Other:
Number of approximated MODERATE 2 2
amounts of urine
Physical Exam
-
General: No Acute Distress and AOx3
HEENT: Grossly Normal
Abdomen: Soft, Distended (Mildly distended), Tender (Minimally tender in the LLQ), No Guarding and No Rebound
Neurological: Other (Moving all extremities)
Skin: Warm and Dry
[2024-04-12 09:07] LABS: Hematocrit 31.7 % (37.0-47.0); Hemoglobin 10.2 g/dL (12.0-16.0); Mean Corp Hgb Conc. 32.2 g/dL (33.0-37.0); Mean Corpuscular Hgb 26.3 pg (27.0-31.0); Mean Corpuscular Volume 81.7 fL (81.0-99.0); Mean Platelet Volume 9.4 fL (7.4-10.4); Platelet Count 243 10^3/uL (130-400); Red Blood Cell Count 3.88 10^6/uL (4.20-5.40); Red Cell Dist. Width 14.1 % (11.5-14.5); White Blood Cell Count 8.8 10^3/uL (4.8-10.8)
[2024-04-12 11:40] LABS: Blood Urea Nitrogen 13 mg/dl (7-17); Calcium 8.2 mg/dl (8.4-10.2); Carbon Dioxide 26 mmol/L (22-30); Chloride 106 mmol/L (98-107); Estimated Creatinine Clearance 45 ml/min; Glucose 107 mg/dl (70-99); Potassium 3.5 mmol/L (3.5-5.1); Sodium 137 mmol/L (135-145); eGFR > 60.00
--- NOTE | 2024-04-12 11:47 | W.PN.HOSP.TC ---
Today's Communication/Plan
-
see plan
Assessment / Plan
Assessment / Plan
General: Well Developed, Well Nourished and No Apparent Distress
HEENT: NormoCephalic, Moist mucous membranes and Atraumatic
Respiratory: Clear
Cardiac: S1/S2 and Regular Rhythm; No Murmur or Rub
GI: Soft, Normal Bowel Sounds, Tender (Left lower quadrant)
Musculoskeletal: No Edema
Neuro: AO x 3 and Nonfocal/grossly intact
Psych: Calm
-CT abdomen pelvis with impression of CT findings compatible with a left pelvic peridiverticular abscess. This abscess extends to the left superior bladder wall and there is air within the anterior bladder lumen. Findings are considered suspicious
for a colovesical fistula as a result of diverticulitis. As an alternative, if the patient has been recently catheterized, air could've been introduced into the bladder from catheterization.No evidence of free intraperitoneal air.Moderate to large
amount of stool within the colon proximal to the region of diverticulitis, suggesting constipation/partial colonic obstruction. No significant dilation of small bowel loops.Coronary artery calcifications. Please correlate with symptoms of and risk
factors for coronary artery disease, with further workup as clinically appropriate.Aortic valvular calcifications. Please correlate with any clinical signs or symptoms that would suggest significant aortic stenosis.Cholelithiasis. No CT findings to
suggest acute cholecystitis.8 mm calcification within the left anterior uterus, likely a small calcified fibroid.Bony degenerative changes as described.
Diverticular abscess/partial colonic obstruction
-continue IV Zosyn
-Tylenol prn for fever
-with increase in nausea yesterday patient made NPO, repeat x-ray this AM, following up with surgery recs on CT
-appreciate CRS
Suspect UTI
dysuria,increase frequency; improving
Continue antibiotics
# Anemia likely iron deficiency
-ferrous sulfate
-No active bleeding
-Continue to monitor
# Hypertension
-Losartan continued
# Hyperlipidemia
-Lipitor continued
# History of Parkinson's
-Carbidopa continued
# DVT prophylaxis
-Subcu heparin
#CODE status
-full code
Anticipated Discharge: > 48 hours
Subjective/Interval History
-
Date of Service: April 12, 2024
no pain
no dysuria
wants to eat or drink something
Objective Data
-
Labs:
Laboratory Results
04/12/24
08:37
WBC 8.8
Hgb 10.2 L
Hct 31.7 L
Plt Count 243
Sodium 137
Potassium 3.5
Chloride 106
Carbon Dioxide 26
BUN 13
Creatinine 0.8
Glucose 107 H
Calcium 8.2 L
Vital Signs:
Vital Signs
Temp Pulse Resp BP Pulse Ox
98.0 F 76 17 119/53 97
04/12/24 07:30 04/12/24 07:30 04/12/24 07:30 04/12/24 07:30 04/12/24 07:35
I&O
04/11/24 04/12/24 04/13/24
06:59 06:59 06:59
Intake Total 820 / 820 2480 / 2480
Balance 820 / 820 2480 / 2480
Review of Systems
-
History Source: Patient
All other systems: Reviewed and negative
Data Reviewed
-
Diagnostic Radiology: Report Reviewed by me
Labs: Labs Reviewed by me
--- NOTE | 2024-04-12 12:35 | CM ---
Patient seen at bedside.
Back to room from CT scan
Discussed role of CM.
Plan: Discharge to home when stable. No needs anticipated.
[2024-04-12 13:25] VITALS: PULSE 69; O2SAT 95
--- NOTE | 2024-04-12 14:32 | PN.CDI ---
CDI
- -
CDI:
Physician Documentation Request
Admit Date: 04/08/24 21:24
Dear Doctor Rohini,
Please review the following and provide your response in the progress notes.
Clinical Indicators:
The diagnosis of ileus was included in the signed 04/12 x-ray abdomen
- 04/10 abdomen x-ray 'possible ileus in the setting of known intra-abdominal infection'
- 04/12 Abdomen x-ray 'A few air-fluid levels noted in the left hemiabdomen likely representing ileus'
Please indicate in your progress notes if you are in agreement that the above diagnosis is valid for this patient:
____ - Ileus is a valid diagnosis (Please include it in your progress notes)
____ - Ileus is not a valid diagnosis for this patient
____ - Ileus is not yet confirmed but remains a suspected condition
____ - Other
Use of terms such as suspected, likely, concern for, or probable are acceptable for a diagnosis that is being evaluated, monitored or treated as if it exists and can be coded in the inpatient setting, when documented at the time of discharge.
Thank you,
Gaudencio Roberson RN
CDI Specialist
Please use your independent medical judgment in providing your response.
[2024-04-12 15:08] VITALS: BP 121/75
[2024-04-12 23:09] VITALS: BP 129/82
[2024-04-13] VITALS (15 sets, daily range): BP systolic 30–143; BP diastolic 57–86; PULSE 77; O2SAT 94
[2024-04-13] MEDS: ZOSYN 50 IV ×3 (05:00→18:57)
[2024-04-13 06:45] LABS: Hematocrit 32.4 % (37.0-47.0); Hemoglobin 10.6 g/dL (12.0-16.0); Mean Corp Hgb Conc. 32.7 g/dL (33.0-37.0); Mean Corpuscular Volume 82.4 fL (81.0-99.0); Mean Platelet Volume 9.7 fL (7.4-10.4); Platelet Count 256 10^3/uL (130-400); Red Blood Cell Count 3.93 10^6/uL (4.20-5.40); Red Cell Dist. Width 14.1 % (11.5-14.5); White Blood Cell Count 10.6 10^3/uL (4.8-10.8)
[2024-04-13 07:01] LABS: Blood Urea Nitrogen 9 mg/dl (7-17); Calcium 8.2 mg/dl (8.4-10.2); Carbon Dioxide 28 mmol/L (22-30); Chloride 106 mmol/L (98-107); Estimated Creatinine Clearance 45 ml/min; Glucose 105 mg/dl (70-99); Potassium 3.3 mmol/L (3.5-5.1); Sodium 137 mmol/L (135-145); eGFR > 60.00
--- NOTE | 2024-04-13 08:33 | W.PN.CRS1 ---
Today's Communication / Plan
-
Stoma marking and OR.
Assessment/Plan
-
Patient with sigmoid diverticulitis with possible colovesical fistula and significant constipation. Gastrografin enema from yesterday reviewed. Results discussed with patient. There is an 8 cm significant stenosis with partial large bowel
obstruction of the sigmoid area. No radiographic evidence on the GE for fistula. It is unlikely that this stricture will improve with medical measures. Options discussed and recommended a trip to the OR today with Dr. Sanchez my partner for
sigmoidectomy with likely colostomy. Potential for diverting colostomy without resection discussed. Risks and benefits described. Risks covered include but not limited to bleeding, infection, ureteral injury, bowel or solid organ injury, ostomy
related issues, hernia formation, likely need for further surgeries, and anesthetic risk. The patient understands and agrees to proceed. This was discussed with the patient via phone conversation with Dr. Sanchez last night as well apparently. ET
nursing consult for stoma marking before hand today. The case will go later in the day. All questions answered.
Subjective Data
Subjective Data
Date of Service: April 13, 2024
Loose BMs overnight.
Some pain.
Objective Data
-
Vital Signs
Temp Pulse Resp BP Pulse Ox
98.4 F 74 18 125/65 97
04/13/24 07:00 04/13/24 07:00 04/13/24 07:00 04/13/24 07:00 04/13/24 07:00
Intake & Output
04/12/24 04/13/24 04/14/24
06:59 06:59 06:59
Intake Total 2480 / 2480 1180 / 1180
Balance 2480 / 2480 1180 / 1180
Intake:
Oral fluids 900 / 900 360 / 360
IV fluids (Total) 1380 / 1380 720 / 720
IV piggybacks 200 / 200 100 / 100
Other:
Number of approximated SMALL 2
amounts of urine
Number of approximated MODERATE 2 1
amounts of urine
How many times incontinent 2
MODERATE amount urine
Lab Results
04/13/24 05:05
04/13/24 05:05
Physical Exam
-
General: No Acute Distress
Chest: Clear
Cardiovascular: Regular Rate & Rhythm
Abdomen: Distended (mild) and Tender (mild lower abdominal)
Data Reviewed
-
Diagnostic Radiology: Image Reviewed (GE) and Report Reviewed (GE)
[2024-04-13] MEDS: COZAAR 50 MG PO (08:53)
[2024-04-13] MEDS: LIPITOR 10 MG PO (08:54)
[2024-04-13] MEDS: HEPARIN 5000 UNITS SC ×2 (08:56→13:59)
[2024-04-13] MEDS: SINEMET 25-100 1 TABLET PO ×3 (08:59→21:17)
--- NOTE | 2024-04-13 09:48 | WOUNDNOTE ---
DARNELL RN NOTE: Stoma sited patient all quadrants as requested by Dr. Sanchez. LUQ marked 6.5cm from midline and 3.3cm proximal from umbilical line. LLQ marked 6.5cm from midline and 3cm distal from umbilical line. RUQ marked 7cm from midline and 3cm
proximal from umbilical line. RLQ marked 7cm from midline and 3cm distal from umbilical line. Assessed sitting, standing and lying, avoided creases and scars. Ambulated patient to bed with minimal assist, sacrum is intact. Patient made aware that
surgeon has final decision of location if ostomy needed. Patient states daughter lives nearby and can assist as needed, will follow if ostomy.
[2024-04-13 10:54] LABS: INR 1.13; PT 14.3 Sec (11.4-14.6)
[2024-04-13] MEDS: D5/0.9% SODIUM CHLORIDE 1000 IV (12:34)
--- NOTE | 2024-04-13 12:46 | W.PN.HOSP.TC ---
Addendum entered and electronically signed by Lyudmila Nova MD 04/14/24 08:50:
obstruction, not ileus etiology of patient's presentation
Original Note:
Today's Communication/Plan
-
NPO for OR
Assessment / Plan
Assessment / Plan
General: Well Developed, Well Nourished and No Apparent Distress
HEENT: NormoCephalic, Moist mucous membranes and Atraumatic
Respiratory: Clear
Cardiac: S1/S2 and Regular Rhythm; No Murmur or Rub
GI: Soft, Normal Bowel Sounds, Tender (Left lower quadrant)
Musculoskeletal: No Edema
Neuro: AO x 3 and Nonfocal/grossly intact
Psych: Calm
CT A/P 04/08
IMPRESSION: As described, CT findings compatible with a left pelvic peridiverticular abscess. This abscess extends to the left superior bladder wall and there is air within the anterior bladder lumen. Findings are considered suspicious for a
colovesical fistula as a result of diverticulitis. As an alternative, if the patient has been recently catheterized, air could've been introduced into the bladder from catheterization.
No evidence of free intraperitoneal air.
Moderate to large amount of stool within the colon proximal to the region of diverticulitis, suggesting constipation/partial colonic obstruction. No significant dilation of small bowel loops.
Coronary artery calcifications. Please correlate with symptoms of and risk factors for coronary artery disease, with further workup as clinically appropriate.
Aortic valvular calcifications. Please correlate with any clinical signs or symptoms that would suggest significant aortic stenosis.
Cholelithiasis. No CT findings to suggest acute cholecystitis.
8 mm calcification within the left anterior uterus, likely a small calcified fibroid.
Bony degenerative changes as described.
Barium Enema 04/12
IMPRESSION:
Long segment partially obstructing stricture of the distal descending/proximal sigmoid colon as described. No convincing evidence for contrast leak or colovesical fistula.
Diverticular abscess
Colonic stricture and large bowel obstruction
-continue IV Zosyn
-appreciate CRS
-NPO for OR later today
Suspect UTI
dysuria,increase frequency; improving
Continue antibiotics
# Anemia likely iron deficiency
-ferrous sulfate
-No active bleeding
-Continue to monitor
# Hypertension
-Losartan continued
# Hyperlipidemia
-Lipitor continued
# History of Parkinson's
-Carbidopa continued
# DVT prophylaxis
-Subcu heparin
#CODE status
-full code
Anticipated Discharge: > 48 hours
Subjective/Interval History
-
Date of Service: April 13, 2024
awaiting surgery
no pain
Objective Data
-
Labs:
Laboratory Results
04/13/24 04/13/24
05:05 10:09
WBC 10.6
Hgb 10.6 L
Hct 32.4 L
Plt Count 256
PT 14.3
INR 1.13
APTT 38.0 H
Sodium 137
Potassium 3.3 L
Chloride 106
Carbon Dioxide 28
BUN 9
Creatinine 0.8
Glucose 105 H
Calcium 8.2 L
Vital Signs:
Vital Signs
Temp Pulse Resp BP Pulse Ox
98.4 F 74 18 125/65 97
04/13/24 07:00 04/13/24 08:53 04/13/24 07:00 04/13/24 08:53 04/13/24 08:52
I&O
04/12/24 04/13/24 04/14/24
06:59 06:59 06:59
Intake Total 2480 / 2480 1180 / 1180
Balance 2480 / 2480 1180 / 1180
Review of Systems
-
History Source: Patient
All other systems: Reviewed and negative
Physical Exam
-
General: No Apparent Distress
HEENT: PERRLA
Respiratory: Clear to Auscultation; Negative Wheezes
Cardiac: Regular Rhythm and S1/S2
GI: Soft and Nontender
Skin: Warm and Dry; Negative Rash
Neuro: AO x 3
Psych: Calm
Data Reviewed
-
Diagnostic Radiology: Report Reviewed by me
Labs: Labs Reviewed by me
[2024-04-13 13:20] LABS: Magnesium 2.1 mg/dl (1.6-2.3)
[2024-04-13] MEDS: KCL 270 MEQ IV (13:22)
[2024-04-13] MEDS: TYLENOL 1000 MG PO (13:59)
[2024-04-13] MEDS: INVANZ 60 MG IV (13:59)
[2024-04-13] MEDS: ENTEREG 12 MG PO (14:34)
--- NOTE | 2024-04-13 18:33 | W.IMMPOSTOP ---
Surgical Immed Post Op Note
-
Primary Surgeon: Lex Sanchez MD
Assisting Surgeon: William Hopper MD; DANICA Acosta
Pre-op Diagnosis: Large bowel obstruction, sigmoid colon stricture
Post-op Diagnosis: Large bowel obstruction, sigmoid colon stricture
Procedure Performed: Exploratory laparotomy, lysis of adhesions, sigmoidectomy, creation of end colostomy; TAP block performed by anesthesia
Anesthesia Type: General
Specimen / Cultures: Pelvic abscess cultures, sigmoid colon (stitch aguilar distal)
Estimated Blood Loss: 75 mL
IVF: 2.7 L
UOP: 1.2 L
Complications: None
Operative Findings: Ex lap from 2 cm above umbilicus to 2 cm above pubic symphysis; encountered a chronically inflamed sigmoid densely adherent to the pelvis; using a combination of blunt dissection with finger fracture technique and electrocautery,
mobilized the sigmoid colon, densely adherent to the anterior pelvis and left lateral pelvis; encountered a small anterior abscess between the colon and the bladder and sent the fluid for cultures; sigmoid was also adherent to the left ovary which
was mobilized; transected approximately at the proximal sigmoid at healthy bowel using the green load of the contour stapler; divided the mesentery close to the colon with the Voyant impact; encountered some bleeding from the mesentery which was
controlled with 3-0 Vicryl stitches in a [id number]-[id number] fashion; transected distally at the rectosigmoid junction with the green load of the contour stapler; inflated the bladder with greater than 150 mL with no leak of contrast from the area with
the abscess that was adherent to the dome of the bladder; mobilized the descending colon by taking down the white line of Toldt and mobilizing the mesentery off the retroperitoneum; created an aperture in the LLQ at the WOCN marking site and brought
the end colostomy through after wrapping with Seprafilm; irrigated the pelvis and controlled bleeding at the rectal stump staple line with a 3-0 Vicryl in [id number] fashion; placed a 3-0 Prolene stitch at the middle of the rectal stump staple
line and left the tails long; placed a 19 German Osvaldo drain through the RLQ and fed it through into the pelvis adjacent to the rectal stump staple line and dome of the bladder; secured the drain to the skin with 2-0 nylon stitch; hemostasis
confirmed in the pelvis and remainder of the operative field; checked the NG tube placement within the stomach; pulled the omentum over the fascial opening; closed the fascia with 0 PDS, placed Seprafilm; irrigated the subcutaneous tissue and closed
with yris and intermittent Telfa molina and covered with Aquacel; matured the end colostomy in the usual Kandis fashion with 3-0 Vicryls; placed the ostomy appliance; performed a digital rectal exam and no impacted stool was noted; anesthesia
performed an ultrasound-guided tap block
--- NOTE | 2024-04-13 18:50 | OR.RPT ---
Operative Report
Operative Report
DATE OF OPERATION: 04/13/2024
SURGEON: Lex Sanchez MD
PREOPERATIVE DIAGNOSIS: Large bowel obstruction, sigmoid colon stricture
POSTOPERATIVE DIAGNOSIS: Same
OPERATION: Exploratory laparotomy, lysis of adhesions, sigmoidectomy, creation of end colostomy; anesthesia performed TAP block postoperatively
ASSISTANTS:
1. William Hopper MD
2. DANICA Acosta
ANESTHESIA: General
ESTIMATED BLOOD LOSS: 75 mL
UOP: 1.2 L
IVF: 2.7 L
FINDINGS:
1. Sigmoid colon densely adherent to the anterior pelvis and dome of the bladder, as well as the left lateral pelvis and left ovary; inflammatory process likely acute on chronic; encountered a small abscess between the sigmoid colon and bladder and
send cultures; mobilized the sigmoid colon from the anterior and left lateral pelvis using blunt dissection with finger fracture technique as well as electrocautery; transected at the proximal sigmoid and rectosigmoid junction
2. Instilled greater than 150 mL of saline under direct visualization and no leak from the bladder was noted; left a 19 Somali Osvaldo drain entering the abdomen through the RLQ and placed within the pelvis adjacent to the dome of the bladder and
rectal stump
3. Tagged the rectal stump with a 3-0 Prolene stitch in the middle of the staple line
4. Created an end colostomy in a Brooked fashion at the LLQ marking site
SPECIMENS:
1. Pelvic abscess culture
2. Sigmoid colon (stitch aguilar distal)
DRAINS: 19 Somali Osvaldo placed in the pelvis
COMPLICATIONS: No immediate complications.
INDICATIONS: The patient is an 83-year-old female who presented to the [facility] with 1 week of constipation and abdominal pain. Her WBC was [address] scan showed acute diverticulitis with a small abscess adjacent to the bladder and a oscar
of air within the bladder concerning for colovesical fistula. There was also concern for large bowel obstruction, but the cecum was not dilated. She was initially managed with nonoperative measures and IV antibiotics. However, she developed
worsening abdominal distention and nausea. A Gastrografin enema was done showing a sigmoid stenosis of about 8 cm in length associated with a large bowel obstruction. Therefore, surgery was recommended. The operation was discussed with the patient
before and in detail, including risks and benefits. My plan is to explore the abdomen, evaluate the severity of the diverticular stricture and if possible, plan to remove the strictured segment of colon. I will then assess if a primary anastomosis
is reasonable or if an ostomy would be safer. I anticipate needing to create an ostomy to reduce the risk of post-operative complications. Risks described included, but are not limited to, bleeding, infection, anastomotic leak (if anastomosis
created), rectal stump dehiscence, ureteral injury, bowel or solid organ injury, recurrence of diverticulitis, risks associated with a stoma if created (ie- skin irritation, ischemia, retraction, prolapse and parastomal hernia) and anesthetic risks.
The patient understood and agreed to proceed. Additionally, the surgery, as well as risks, benefits and alternatives, were discussed with the patient's daughter, who also agreed with proceeding.
PROCEDURE IN DETAIL: Pre-operatively, the patient was marked by our enterostomal nurses. The patient was taken to the operating room and placed on the operating table in supine position. Sequential compression devices were placed bilaterally.
General anesthesia was then induced and the patient was intubated without complication. The patient was then placed in lithotomy position with both arms secured to the arm board in extended position. A jewell catheter was placed with sterile
technique. The abdomen was then prepped and draped in a sterile fashion. A time-out was then performed verifying the correct patient, procedure, operative site, positioning, and special equipment. Anesthesia placed a nasogastric tube.
Preoperative antibiotics were given. A marking pen was used to roberto out the midline.
Using a 15 blade scalpel, a midline incision was made from 2 cm above the umbilicus and extended caudally to 2 cm above the pubic symphysis. This was taken down to the level of the fascia with Bovie electrocautery and hemostasis was assured. The
linea alba was divided carefully with Bovie electrocautery. Then 2 Kellys were used to grasp and elevate the peritoneum, which was sharply divided with Metzenbaum scissors, ensuring no peritoneal organs were in the vicinity. Upon entry, I did not
encounter any purulent or feculent ascites. I extended the fascial incision to the length of the skin incision, taking care to avoid injury to the bladder. A large Erickson wound protector was placed. The abdomen was explored. The small bowel
appeared healthy and slightly dilated. The cecum and ascending colon appeared healthy and without signs of ischemia or significant dilation. The sigmoid colon appeared chronically inflamed with extremely dense adhesions to the anterior pelvis and
left lateral pelvis. The sigmoid itself felt very hard and woody, suggestive of a chronic process related to her stricture. There was no evidence of any perforation in the area. Initially, I was concerned about attempting to remove the sigmoid
colon as trying to lyse such dense adhesions could lead to significant injury to the surrounding pelvic structures. I discussed the case with my partner, Dr. Junaid Hopper, who scrubbed in to evaluate. He agreed that the chronic inflammation was
severe, but felt that this area of the colon was resectable and I agreed. Therefore, we very carefully proceeded with mobilization of the sigmoid. The patient was placed in Trendelenburg position with the left side tilted up. The small bowel was
then swept out of the pelvis and packed away. With the sigmoid colon adequately exposed, I began by mobilizing it in a lateral to medial fashion. I began by dividing the white line of Toldt at the distal descending colon to identify a clean plane.
With a combination of sharp and blunt meticulous dissection, I continued mobilizing the sigmoid colon from the left pelvic brim and retroperitoneum, taking care to avoid injury to the left ureter. I continued this dissection to mobilize the sigmoid
colon away from the anterior pelvis. The bladder came into view and then a small abscess was encountered with a few milliliters of pus. The pus was swabbed for anaerobic and aerobic cultures. No obvious hole was seen in the bladder, but there was
significant inflammation and inflammatory debris at the dome of the bladder. Ultimately, the bladder was freed from its dense adhesions to the surrounding pelvis, including the left ovary. Once mobilized, the pelvis was evaluated and hemostasis
was assured. No injury to the left ureter or left ovary was noted. Healthy colon was palpable at the level of the rectosigmoid junction and at the proximal sigmoid.
I transected proximally at the proximal sigmoid colon by creating a hole in the mesentery at the mesenteric border and stapling with the green load of the contour stapler. There was hemostasis at the staple line. The Voyant impact device was then
used to divide the mesentery leading toward the rectosigmoid junction, staying close to the border of the colon. There were multiple spots of bleeding along the ligated mesentery, despite firing the Voyant device twice prior to dividing. These
points of bleeding were easily controlled with 3-0 Vicryl in a vcxgyt-kq-cwrrf fashion. I selected a point to transect distally at the rectosigmoid junction. I created a hole in the mesentery with electrocautery and stapled with the green load of
the contour stapler. Hemostasis was assured at the staple line. The sigmoid was then passed off as specimen. Due to the concern of a colovesical fistula on preoperative CT scan, the circulating nurse insufflated the Jewell catheter with greater
than 150 mL of saline while I visualized to the dome of the bladder directly. No leak of saline was noted.
At this point, I elected to move forward with an end colostomy creation as opposed to a primary anastomosis due to the extensive adhesions and chronic inflammation within the pelvis, as well as the column of stool proximal to the sigmoid. I tagged
the rectum in the middle of the staple line with a 3-0 Prolene, leaving 3 cm long tails. The rectal stump and staple line appeared healthy. An oozing spot was noted on the rectal stump staple line, which was controlled with one 3-0 Vicryl in
qedyqk-uz-cskxc fashion. The descending colon was nicely mobilized and reached the left lower quadrant ostomy roberto without any tension. Using an Allis, I elevated the skin and created a circular incision with electrocautery. I coned out a small
amount of subcutaneous tissue. Then, using [place]'s and electrocautery, I took this down through the anterior and posterior layers of the fascia, making a cruciate incision in each and splitting the rectus muscle with a Ingrid clamp. I ensured
the colostomy tunnel was large enough by passing 2.5 fingers through easily. I then brought the colon through the colostomy tunnel, wrapped in Seprafilm, ensuring no twist to the mesentery. I directed the mesentery medially. Next, I placed a 19Fr
Sovaldo drain in the pelvis and brought it out through the right lower abdominal wall and secured it with a 2�0 nylon drain stitch and connected it to bulb suction. The drain was placed adjacent to the rectal stump staple line and inflammatory rind
on the dome of the bladder. I once more examined the operative field, including the rectal stump, mesentery, and left retroperitoneum and hemostasis was assured. I evaluated the placement of the nasogastric tube and it was in good position. I
retracted the omentum to underlie the fascial incision. I began closing the midline incision with 0 PDS starting from the corners and sewing towards the middle. While closing, I placed Seprafilm to underlie the fascial incision. Once the fascia
was closed, I irrigated the subcutaneous tissue. I closed the skin with intermittent yris and Telfa molina and dressed this with an Aquacel. I placed a blue towel over the Aquacel and the left-sided colostomy was matured in a Brooked fashion
with 3-0 Vicryl stitches. A stoma appliance was cut to size and placed. Dry dressings were placed at the drain site.
At this point, the procedure was complete. The patient was awoken and extubated without complication. All needle, sponge and instrument counts were reported as correct. The patient tolerated the procedure well and was transferred to the recovery
room in stable condition with the nasogastric tube and Jewell in place.
Of note, William Hopper MD, human resources assistant manager, was necessary during this procedure for traction, countertraction, and exploratory purposes. I was present for the entire duration of the case.
DICTATED BY: Lex Sanchez MD
[2024-04-13] MEDS: TORADOL 15 MG IV (21:08)
--- NOTE | 2024-04-13 22:11 | PTCARENOTE ---
Pt arrived from PACU at aprox 2034 to room 2111. Pt awake and alert but forgetful to time. Pt with no pain, vitals stable. Pt arrived with NGT and hooked to continuous suction. Marshall draining yellow urine. Left new colostomy with loose brown stool
noted. Right abd with BONNY with 4x4's. Midline dressing with shadowing marked. Pt arrived with B/L wrist restraints on, as patient was attempting to remove NGT in PACU. KALE Enrique notified for order for restraints.
[2024-04-14] VITALS (7 sets, daily range): BP systolic 105–129; BP diastolic 46–78; PULSE 68; O2SAT 94; BMI 27.0
[2024-04-14] MEDS: ZOSYN 50 IV ×5 (00:28→23:03)
[2024-04-14] MEDS: D5/0.9% SODIUM CHLORIDE IV (00:36)
[2024-04-14] MEDS: TORADOL 15 MG IV ×4 (03:55→23:03)
--- NOTE | 2024-04-14 04:16 | PTCARENOTE ---
Pt. awake and alert x3 but still drowsy. States she knew she was in the hospital but unfamiliar with the room. Reoriented pt. to current location and explained to pt. she was trying to remove her NGT while coming out of anesthesia, pt. states she
doesn't remember doing that and apologized profusely. Educated pt. on purpose of NGT and pt. stated she felt more lucid and would not touch her NGT. B/L wrist restraints removed at this time, lower side rails put down. Will monitor.
[2024-04-14 06:55] LABS: % Basophils 0.2 % (0-2); % Immature Granulocytes 0.5 % (0-0.5); % Lymphocytes 3.2 % (20.5-51.1); % Monocytes 4.9 % (1.7-9.3); % Neutrophils 91.2 % (42.2-75.2); Absolute Immature Granulocytes 0.1 10^3/uL (0-0.05); Absolute Lymphocytes 0.6 10^3/uL (1.2-3.4); Absolute Neutrophils 17.8 10^3/uL (1.4-6.5); Hematocrit 31.4 % (37.0-47.0); Hemoglobin 10.2 g/dL (12.0-16.0); Mean Corp Hgb Conc. 32.5 g/dL (33.0-37.0); Mean Corpuscular Hgb 26.5 pg (27.0-31.0); Mean Corpuscular Volume 81.6 fL (81.0-99.0); Mean Platelet Volume 9.7 fL (7.4-10.4); Nucleated Red Blood Cells % 0 %; Platelet Count 251 10^3/uL (130-400); Red Blood Cell Count 3.85 10^6/uL (4.20-5.40); Red Cell Dist. Width 14.4 % (11.5-14.5); White Blood Cell Count 19.5 10^3/uL (4.8-10.8)
[2024-04-14 07:26] LABS: Blood Urea Nitrogen 8 mg/dl (7-17); Calcium 7.4 mg/dl (8.4-10.2); Carbon Dioxide 25 mmol/L (22-30); Chloride 105 mmol/L (98-107); Estimated Creatinine Clearance 52 ml/min; Glucose 178 mg/dl (70-99); Magnesium 2.1 mg/dl (1.6-2.3); Potassium 3.5 mmol/L (3.5-5.1); Sodium 137 mmol/L (135-145); eGFR > 60.00
[2024-04-14] MEDS: ENTEREG 12 MG PO ×2 (08:14→19:55)
[2024-04-14] MEDS: SINEMET 25-100 1 TABLET PO ×3 (08:14→18:04)
--- NOTE | 2024-04-14 08:39 | W.PN.CRS1 ---
Today's Communication / Plan
-
As below
Assessment/Plan
-
83-year-old female with PMH HTN, HLD, Parkinson's, anxiety who presented with 1 week of constipation, WBC 13, CT showing diverticulitis with abscess and concern for colovesical fistula (oscar of air within the bladder); abscess not amenable to IR
drainage; developed nausea and bloating on 04/11, Gastrografin enema on 04/12 showing 8 cm stricture in the sigmoid colon leading to partial obstruction
POD 1 ex lap, Elan's procedure, left aurora drain in pelvis due to concern for colovesical fistula; anesthesia performed a tap block
AFVSS
WBC 19.5 from 10.6, Hb 10.2 from 10.6, CR 0.7, UOP 875
NGT�minimal clear output
�Acute diverticulitis with abscess and concern for colovesical fistula, c/b large bowel obstruction due to stricture; s/p resection
-f/u path
�Remove NGT, but continue n.p.o., okay for ice chips, okay for p.o. meds; continue IVF at 60
�Continue IV Zosyn; continue antibiotics for 4 days postoperatively
� Continue pain control with Tylenol, Toradol, Dilaudid as needed
� Continue DVT PPx with lovenox
�Continue Marshall for concern of colovesical fistula
�Will obtain CT cystogram on postop day 5 prior to removing Marshall
� OOB/encourage IS, recommend PT consult
� Appreciate hospitalist
Subjective Data
Subjective Data
Date of Service: April 14, 2024
No overnight events.
Pain controlled.
Denies nausea/vomiting. Currently n.p.o. with NGT in place
+ Ostomy function (liquid stool in bag) + Marshall
Pt is not OOB yet.
Objective Data
-
Vital Signs
Temp Pulse Resp BP Pulse Ox
97.7 F 69 16 129/70 96
04/14/24 07:47 04/14/24 07:47 04/14/24 07:47 04/14/24 07:47 04/14/24 07:47
Intake & Output
04/13/24 04/14/24 04/15/24
06:59 06:59 06:59
Intake Total 1180 / 1180 80 / 80
Output Total 1225 / 1225
Balance 1180 / 1180 -1145 / -1145
Intake:
Oral fluids 360 / 360
IV fluids (Total) 720 / 720
IV piggybacks 100 / 100 50 / 50
Amount instilled into GI Tube ( 30 / 30
Total)
[place] Sump 30 / 30
Output:
Liquid stool amount 250 / 250
Colostomy 250 / 250
Drain Output (Total) 100 / 100
Right Abdomen Slick-Martinez 100 / 100
Urine, Marshall 875 / 875
Other:
Number of approximated SMALL 2
amounts of urine
Number of approximated MODERATE 1
amounts of urine
How many times incontinent 2
MODERATE amount urine
Lab Results
04/14/24 06:03
04/14/24 06:03
Physical Exam
-
General: No Acute Distress and AOx3
HEENT: Grossly Normal
Abdomen: Soft, Distended (Minimally to mildly distended), Tender (Appropriately tender near incision), No Guarding, No Rebound and Other (Ostomy pink, productive of liquid brown stool; BONNY-100 mL serosanguineous fluid)
Neurological: No Motor Deficits
Skin: Warm and Dry
Wound: No Signs of Infection and Dressing in Place (Aquacel to midline, minimal strikethrough; drain sponge around drain)
--- NOTE | 2024-04-14 08:47 | W.PN.HOSP.TC ---
Today's Communication/Plan
-
see plan
Assessment / Plan
Assessment / Plan
General: Well Developed, Well Nourished and No Apparent Distress
HEENT: NormoCephalic, Moist mucous membranes and Atraumatic
Respiratory: Clear
Cardiac: S1/S2 and Regular Rhythm; No Murmur or Rub
GI: Soft, Normal Bowel Sounds, Tender (Left lower quadrant)
Musculoskeletal: No Edema
Neuro: AO x 3 and Nonfocal/grossly intact
Psych: Calm
CT A/P 04/08
IMPRESSION: As described, CT findings compatible with a left pelvic peridiverticular abscess. This abscess extends to the left superior bladder wall and there is air within the anterior bladder lumen. Findings are considered suspicious for a
colovesical fistula as a result of diverticulitis. As an alternative, if the patient has been recently catheterized, air could've been introduced into the bladder from catheterization.
No evidence of free intraperitoneal air.
Moderate to large amount of stool within the colon proximal to the region of diverticulitis, suggesting constipation/partial colonic obstruction. No significant dilation of small bowel loops.
Coronary artery calcifications. Please correlate with symptoms of and risk factors for coronary artery disease, with further workup as clinically appropriate.
Aortic valvular calcifications. Please correlate with any clinical signs or symptoms that would suggest significant aortic stenosis.
Cholelithiasis. No CT findings to suggest acute cholecystitis.
8 mm calcification within the left anterior uterus, likely a small calcified fibroid.
Bony degenerative changes as described.
Barium Enema 04/12
IMPRESSION:
Long segment partially obstructing stricture of the distal descending/proximal sigmoid colon as described. No convincing evidence for contrast leak or colovesical fistula.
OR 04/13:
Post-op Diagnosis: Large bowel obstruction, sigmoid colon stricture
Procedure Performed: Exploratory laparotomy, lysis of adhesions, sigmoidectomy, creation of end colostomy; TAP block performed by anesthesia
Diverticular abscess
Colonic stricture and large bowel obstruction
-s/p ex-lap, lysis of adhesions, sigmoidectomy and creation of end colostomy on 04/13
-NGT pulled this AM
-continue IV Zosyn
-post-op leukocytosis - monitor
-F/U intra-op cultures
-IVF
-monitor electrolytes
-appreciate surgery
Suspect UTI
dysuria,increase frequency; improving
Continue antibiotics
# Anemia likely iron deficiency
-ferrous sulfate
-No active bleeding
-Continue to monitor
# Hypertension
-Losartan continued
# Hyperlipidemia
-Lipitor continued
# History of Parkinson's
-Carbidopa continued
# DVT prophylaxis
-Subcu heparin
#CODE status
-full code
Anticipated Discharge: > 48 hours
Subjective/Interval History
-
Date of Service: April 14, 2024
NGT pulled this AM
pain controlled
Objective Data
-
Labs:
Laboratory Results
04/14/24
06:03
WBC 19.5 H
Hgb 10.2 L
Hct 31.4 L
Plt Count 251
Sodium 137
Potassium 3.5
Chloride 105
Carbon Dioxide 25
BUN 8
Creatinine 0.7
Glucose 178 H
Calcium 7.4 L
Vital Signs:
Vital Signs
Temp Pulse Resp BP Pulse Ox
97.7 F 69 16 129/70 96
04/14/24 07:47 04/14/24 07:47 04/14/24 07:47 04/14/24 07:47 04/14/24 07:47
I&O
04/13/24 04/14/24 04/15/24
06:59 06:59 06:59
Intake Total 1180 / 1180 80 / 80
Output Total 1225 / 1225
Balance 1180 / 1180 -1145 / -1145
Review of Systems
-
History Source: Patient
All other systems: Reviewed and negative
Physical Exam
-
General: No Apparent Distress
HEENT: PERRLA
Respiratory: Clear to Auscultation; Negative Wheezes
Cardiac: Regular Rhythm and S1/S2
GI: Other (+ colostomy, gauze over surgical site c/d/i; BONNY drain with serosanguinous fluid )
Skin: Warm and Dry; Negative Rash
Neuro: AO x 3
Psych: Calm
Data Reviewed
-
Diagnostic Radiology: Report Reviewed by me
Labs: Labs Reviewed by me
--- NOTE | 2024-04-14 09:04 | WOUNDNOTE ---
DARNELL RN note: Patient s/p ostomy surgery sigmoidectomy with end colostomy.
See H&P for complete history.
PMH: Parkinson's, HTN and arthritis.
Ostomy location and type: LUQ stoma red, budded, for light brown liquid stool, no leakage. Daughter Willow at bedside. Teaching done with daughter, reviewed Colostomy folder and agreed to be available for teaching towards end of wk when appliance
changed.
Patient too groggy for teaching at this time. Will Instruct patient ostomy pouch emptying and changing appliance either or Friday using [place] wafer # [id number] and [place] pouch # [id number]
Ostomy supplies ordered from [facility] and at bedside. Daughter states her Mom will be going to rehab upon discharge. Consent obtained from daughter and patient to enroll in secure start program, confirmed address.
Note to case management: VN services recommended for ostomy teaching.
Nursing care plan updated, will follow as needed.
[2024-04-14] MEDS: D5/0.9% SODIUM CHLORIDE 1000 IV (12:29)
--- NOTE | 2024-04-14 13:26 | CM ---
Patient asleep beside, CM met with patients daughter, discussed PT recommendation of SNF. CM sent referrals to [facility], awaiting accepting facility. CM will continue to follow for all discharge planning needs.
Plan; SNF pending accepting facility.
[2024-04-14] MEDS: LOVENOX 40 MG SC (18:04)
[2024-04-15 02:59] VITALS: BP 118/69
[2024-04-15] MEDS: TORADOL 15 MG IV ×2 (04:00→11:07)
[2024-04-15] MEDS: ZOSYN 50 IV ×4 (05:26→23:05)
[2024-04-15 06:00] VITALS: BMI 26.9
[2024-04-15] MEDS: D5/0.9% SODIUM CHLORIDE 1000 IV (06:15)
[2024-04-15 07:01] LABS: Hematocrit 26.1 % (37.0-47.0); Hemoglobin 8.5 g/dL (12.0-16.0); Mean Corp Hgb Conc. 32.6 g/dL (33.0-37.0); Mean Corpuscular Hgb 26.2 pg (27.0-31.0); Mean Corpuscular Volume 80.3 fL (81.0-99.0); Mean Platelet Volume 9.8 fL (7.4-10.4); Platelet Count 241 10^3/uL (130-400); Red Blood Cell Count 3.25 10^6/uL (4.20-5.40); Red Cell Dist. Width 14.6 % (11.5-14.5); White Blood Cell Count 15.9 10^3/uL (4.8-10.8)
[2024-04-15 07:25] VITALS: BP 125/62
[2024-04-15 08:05] LABS: Blood Urea Nitrogen 13 mg/dl (7-17); Calcium 7.7 mg/dl (8.4-10.2); Carbon Dioxide 29 mmol/L (22-30); Chloride 108 mmol/L (98-107); Estimated Creatinine Clearance 36 ml/min; Glucose 98 mg/dl (70-99); Magnesium 2.3 mg/dl (1.6-2.3); Sodium 138 mmol/L (135-145)
--- NOTE | 2024-04-15 08:39 | W.PN.HOSP.TC ---
Today's Communication/Plan
-
see plan
Assessment / Plan
Assessment / Plan
General: Well Developed, Well Nourished and No Apparent Distress
HEENT: NormoCephalic, Moist mucous membranes and Atraumatic
Respiratory: Clear
Cardiac: S1/S2 and Regular Rhythm; No Murmur or Rub
GI: Soft, Normal Bowel Sounds, Tender (Left lower quadrant)
Musculoskeletal: No Edema
Neuro: AO x 3 and Nonfocal/grossly intact
Psych: Calm
CT A/P 04/08
IMPRESSION: As described, CT findings compatible with a left pelvic peridiverticular abscess. This abscess extends to the left superior bladder wall and there is air within the anterior bladder lumen. Findings are considered suspicious for a
colovesical fistula as a result of diverticulitis. As an alternative, if the patient has been recently catheterized, air could've been introduced into the bladder from catheterization.
No evidence of free intraperitoneal air.
Moderate to large amount of stool within the colon proximal to the region of diverticulitis, suggesting constipation/partial colonic obstruction. No significant dilation of small bowel loops.
Coronary artery calcifications. Please correlate with symptoms of and risk factors for coronary artery disease, with further workup as clinically appropriate.
Aortic valvular calcifications. Please correlate with any clinical signs or symptoms that would suggest significant aortic stenosis.
Cholelithiasis. No CT findings to suggest acute cholecystitis.
8 mm calcification within the left anterior uterus, likely a small calcified fibroid.
Bony degenerative changes as described.
Barium Enema 04/12
IMPRESSION:
Long segment partially obstructing stricture of the distal descending/proximal sigmoid colon as described. No convincing evidence for contrast leak or colovesical fistula.
OR 04/13:
Post-op Diagnosis: Large bowel obstruction, sigmoid colon stricture
Procedure Performed: Exploratory laparotomy, lysis of adhesions, sigmoidectomy, creation of end colostomy; TAP block performed by anesthesia
Diverticular abscess
Colonic stricture and large bowel obstruction
-s/p ex-lap, lysis of adhesions, sigmoidectomy and creation of end colostomy on 04/13
-NGT pulled morning of 04/14
-continue IV Zosyn (d/c on 04/18)
-post-op leukocytosis - monitor
-F/U intra-op cultures
-IVF with D5
-monitor electrolytes
-appreciate surgery
-confirming with surgery OK to advance to clears today '
-per CRS: �Continue Marshall for concern of colovesical fistula
�Will obtain CT cystogram on postop day 5 prior to removing Marshall
Hypokalemia
-repelte
Suspect UTI
dysuria,increase frequency; improving
Continue antibiotics
# Anemia likely iron deficiency
-ferrous sulfate
-No active bleeding
-Continue to monitor
# Hypertension
-Losartan continued
# Hyperlipidemia
-Lipitor continued
# History of Parkinson's
-Carbidopa continued
# DVT prophylaxis
-Subcu heparin
#CODE status
-full code
Anticipated Discharge: > 48 hours
Subjective/Interval History
-
Date of Service: April 15, 2024
no pain
able to drink clears this morning
Objective Data
-
Labs:
Laboratory Results
04/15/24 04/15/24
06:38 13:00
WBC 15.9 H Pending
Hgb 8.5 L Pending
Hct 26.1 L Pending
Plt Count 241 Pending
Sodium 138
Potassium 3.0 L
Chloride 108 H
Carbon Dioxide 29
BUN 13
Creatinine 1.0
Glucose 98
Calcium 7.7 L
Vital Signs:
Vital Signs
Temp Pulse Resp BP Pulse Ox
97.7 F 77 18 125/62 95
04/15/24 07:25 04/15/24 07:25 04/15/24 07:25 04/15/24 07:25 04/15/24 07:25
I&O
04/14/24 04/15/24 04/16/24
06:59 06:59 06:59
Intake Total 80 / 80 720 / 720
Output Total 1225 / 1225 1430 / 1430
Balance -1145 / -1145 -710 / -710
Review of Systems
-
History Source: Patient
All other systems: Reviewed and negative
Physical Exam
-
General: No Apparent Distress
HEENT: PERRLA
Respiratory: Clear to Auscultation; Negative Wheezes
Cardiac: Regular Rhythm and S1/S2
GI: Other (+ colostomy, gauze over surgical site c/d/i; BONNY drain with serosanguinous fluid )
Skin: Warm and Dry; Negative Rash
Neuro: AO x 3
Psych: Calm
Data Reviewed
-
Diagnostic Radiology: Report Reviewed by me
Labs: Labs Reviewed by me
[2024-04-15] MEDS: ENTEREG 12 MG PO ×2 (08:58→19:50)
[2024-04-15] MEDS: KCL 270 MEQ IV (08:58)
[2024-04-15] MEDS: LIPITOR 10 MG PO (08:58)
[2024-04-15] MEDS: SINEMET 25-100 1 TABLET PO ×3 (09:20→19:50)
--- NOTE | 2024-04-15 09:57 | W.PN.CRS1 ---
Today's Communication / Plan
-
Begin clear liquids
Ostomy teaching.
Continue antibiotics.
Follow-up repeat hemoglobin. No evidence of active bleeding but might need to hold Lovenox and Toradol pending the results.
Continue Lovenox, SCDs and ambulation for DVT prophylaxis.
PT with eventual discharge to rehab.
Final pathology is pending.
Assessment/Plan
-
POD 2 ex lap, Elan's procedure, left aurora drain in pelvis due to concern for colovesical fistula; anesthesia performed a tap block
Progressing well.
WBC normalizing.
Hemoglobin at 8.5 (was 10.2 yesterday). Repeat pending.
Hypokalemia being replaced by the hospitalist.
Subjective Data
Subjective Data
Date of Service: April 15, 2024
She has no pain. She denies any nausea and is very thirsty. The NG tube was removed yesterday.
Objective Data
-
Vital Signs
Temp Pulse Resp BP Pulse Ox
97.7 F 77 18 125/62 95
04/15/24 07:25 04/15/24 07:25 04/15/24 07:25 04/15/24 07:25 04/15/24 07:25
Intake & Output
04/14/24 04/15/24 04/16/24
06:59 06:59 06:59
Intake Total 80 / 80 720 / 720
Output Total 1225 / 1225 1430 / 1430
Balance -1145 / -1145 -710 / -710
Intake:
Oral fluids 0 / 0
IV fluids (Total) 720 / 720
IV piggybacks 50 / 50
Amount instilled into GI Tube ( 30 / 30
Total)
[place]ord Sump 30 / 30
Output:
Liquid stool amount 250 / 250 325 / 325
Colostomy 250 / 250 325 / 325
Drain Output (Total) 100 / 100 130 / 130
Right Abdomen Slick-Martinez 100 / 100 130 / 130
Urine, Marshall 875 / 875 975 / 975
Lab Results
04/15/24 06:38
Physical Exam
-
General: No Acute Distress
Abdomen: Soft, Non Distended, Non Tender and Other (BONNY output is serosanguineous; the ostomy is viable and has output)
Extremities: No Calf Tenderness
Wound: Dressing in Place
[2024-04-15 11:10] VITALS: BP 123/60
--- NOTE | 2024-04-15 14:36 | WOUNDNOTE ---
[facility] RN NOTE: Met with patient and daughter at bedside for ostomy teaching. Plan is for SNF at discharge. Daughter Willow will help with care at home. Reviewed emptying pouch, cutting barrier and ordering supplies. Pouch emptied for 200 cc liquid
stool. Patient tolerating clear liquids. Air cushion applied to chair as patient plans on moving to chair this afternoon. Both patient and daughter aware that they can follow up with [facility] dentistry teacher if they encounter pouching issues. [facility] Colorectal
team for removal of midline dressing. Awaiting response. Plan is to follow up with teaching and pouch change tomorrow.
[2024-04-15 15:35] VITALS: BP 108/64
[2024-04-15 15:53] LABS: % Basophils 0.2 % (0-2); % Eosinophils 0.2 % (0-6); % Immature Granulocytes 1.1 % (0-0.5); % Lymphocytes 5.6 % (20.5-51.1); % Monocytes 6.8 % (1.7-9.3); % Neutrophils 86.1 % (42.2-75.2); Absolute Immature Granulocytes 0.2 10^3/uL (0-0.05); Absolute Monocytes 1.2 10^3/uL (0.1-0.6); Absolute Neutrophils 15.1 10^3/uL (1.4-6.5); Hematocrit 28.9 % (37.0-47.0); Hemoglobin 9.4 g/dL (12.0-16.0); Mean Corp Hgb Conc. 32.5 g/dL (33.0-37.0); Mean Corpuscular Hgb 26.9 pg (27.0-31.0); Mean Corpuscular Volume 82.6 fL (81.0-99.0); Mean Platelet Volume 9.6 fL (7.4-10.4); Nucleated Red Blood Cells % 0 %; Platelet Count 248 10^3/uL (130-400); Red Cell Dist. Width 14.8 % (11.5-14.5); White Blood Cell Count 17.6 10^3/uL (4.8-10.8)
--- NOTE | 2024-04-15 17:06 | WOUNDNOTE ---
[facility] RN note: Confirmed with Dr. Hopper, WOC RN can remove mid abdominal post op dressing to be able to change ostomy appliance and apply dry gauze dressing to incision (leave molina in place). WOC RN to change appliance for teaching tomorrow.
[2024-04-15] MEDS: LOVENOX 40 MG SC (17:51)
[2024-04-15 19:39] VITALS: BP 148/88
[2024-04-15] MEDS: TYLENOL 650 MG PO (23:05)
[2024-04-15 23:11] VITALS: BP 127/65
[2024-04-16 03:09] VITALS: BP 103/56
[2024-04-16] MEDS: ZOSYN 50 IV ×2 (05:23→12:21)
[2024-04-16 06:00] VITALS: BMI 26.2
[2024-04-16 07:12] VITALS: BP 144/71
[2024-04-16 07:35] LABS: % Basophils 0.2 % (0-2); % Eosinophils 0.4 % (0-6); % Immature Granulocytes 1.2 % (0-0.5); % Lymphocytes 6.7 % (20.5-51.1); % Monocytes 8.5 % (1.7-9.3); Absolute Eosinophils 0.1 10^3/uL (0-0.7); Absolute Immature Granulocytes 0.2 10^3/uL (0-0.05); Absolute Lymphocytes 1.1 10^3/uL (1.2-3.4); Absolute Monocytes 1.4 10^3/uL (0.1-0.6); Absolute Neutrophils 14.1 10^3/uL (1.4-6.5); Hematocrit 26.2 % (37.0-47.0); Hemoglobin 8.5 g/dL (12.0-16.0); Mean Corp Hgb Conc. 32.4 g/dL (33.0-37.0); Mean Corpuscular Volume 80.1 fL (81.0-99.0); Mean Platelet Volume 9.9 fL (7.4-10.4); Nucleated Red Blood Cells % 0 %; Platelet Count 242 10^3/uL (130-400); Red Blood Cell Count 3.27 10^6/uL (4.20-5.40); Red Cell Dist. Width 14.9 % (11.5-14.5); White Blood Cell Count 16.9 10^3/uL (4.8-10.8)
[2024-04-16 08:15] LABS: Blood Urea Nitrogen 9 mg/dl (7-17); Calcium 7.5 mg/dl (8.4-10.2); Carbon Dioxide 26 mmol/L (22-30); Chloride 105 mmol/L (98-107); Estimated Creatinine Clearance 45 ml/min; Glucose 82 mg/dl (70-99); Potassium 3.1 mmol/L (3.5-5.1); Sodium 135 mmol/L (135-145); eGFR > 60.00
--- NOTE | 2024-04-16 08:40 | W.PN.CRS1 ---
Today's Communication / Plan
-
As below
Assessment/Plan
-
83-year-old female with PMH HTN, HLD, Parkinson's, anxiety who presented with 1 week of constipation, WBC 13, CT showing diverticulitis with abscess and concern for colovesical fistula (oscar of air within the bladder); abscess not amenable to IR
drainage; developed nausea and bloating on 04/11, Gastrografin enema on 04/12 showing 8 cm stricture in the sigmoid colon leading to partial obstruction
POD 3 ex lap, Elan's procedure, aurora drain in pelvis due to concern for colovesical fistula; anesthesia performed a tap block
Tmax 101.6 overnight, VSS
WBC 16.9 from 17.6, 8.5 from 9.4 (overall trend stable), BMP pending, UOP 1.0 L
�Acute diverticulitis with abscess and concern for colovesical fistula, c/b large bowel obstruction due to stricture; s/p resection
-f/u path
�Febrile overnight, currently asymptomatic; will send CXR and UA/UCx
�Continue IV Zosyn; continue antibiotics for 4 days postoperatively unless other infection identified
�Advance to regular diet
� Continue pain control with Tylenol, Toradol, Dilaudid as needed
� Continue DVT PPx with lovenox
�Continue Marshall for concern of colovesical fistula
�Will obtain CT cystogram on postop day 5 prior to removing Marshall
� OOB/encourage IS, appreciate PT�recommending SNF for discharge
� Appreciate hospitalist
Subjective Data
Subjective Data
Date of Service: April 16, 2024
No overnight events. Denies cough, sore throat, chest pain or shortness of breath. Denies lower extremity pain or swelling.
Pain controlled.
Denies nausea/vomiting. Tolerating clear liquids.
+ Ostomy function + Marshall
Pt is OOB.
Objective Data
-
Vital Signs
Temp Pulse Resp BP Pulse Ox
98.3 F 77 17 144/71 97
04/16/24 07:12 04/16/24 07:12 04/16/24 07:12 04/16/24 07:12 04/16/24 07:12
Intake & Output
04/15/24 04/16/24 04/17/24
06:59 06:59 06:59
Intake Total 720 / 720 2660 / 2660
Output Total 1430 / 1430 1131 / 1131
Balance -710 / -710 1529 / 1529
Intake:
Oral fluids 0 / 0 1110 / 1110
IV fluids (Total) 720 / 720 1100 / 1100
IV piggybacks 450 / 450
Output:
Liquid stool amount 325 / 325 1 /
Colostomy 325 / 325 1 /
Drain Output (Total) 130 / 130 130 / 130
Right Abdomen Slick-Martinez 130 / 130 130 / 130
Urine, Marshall 975 / 975 1000 / 1000
Lab Results
04/16/24 06:34
04/16/24 06:34
Physical Exam
-
General: No Acute Distress and AOx3
HEENT: Grossly Normal
Abdomen: Soft, Distended (Minimally distended, protuberant, nontympanic), Tender (Appropriately tender near midline incision), No Guarding, No Rebound and Other (BONNY-130 mL serosanguineous; ostomy pink, edematous, productive of liquidy stool and gas)
Neurological: No Motor Deficits
Skin: Warm and Dry
Wound: No Signs of Infection, Dressing in Place (Minimal strikethrough) and Other
--- NOTE | 2024-04-16 08:52 | W.PN.HOSP.TC ---
Addendum entered and electronically signed by Lyudmila Nova MD 04/16/24 10:34:
Fever
-101.6 yesterday evening
-CXR and UA w/out e/o infection
-check covid
-may be post-op fever
-no new abdominal pain
-will monitor/ F/U further CRS recs
Original Note:
Today's Communication/Plan
-
see plan
Assessment / Plan
Assessment / Plan
General: Well Developed, Well Nourished and No Apparent Distress
HEENT: NormoCephalic, Moist mucous membranes and Atraumatic
Respiratory: Clear
Cardiac: S1/S2 and Regular Rhythm; No Murmur or Rub
GI: Soft, Normal Bowel Sounds, Tender (Left lower quadrant)
Musculoskeletal: No Edema
Neuro: AO x 3 and Nonfocal/grossly intact
Psych: Calm
CT A/P 04/08
IMPRESSION: As described, CT findings compatible with a left pelvic peridiverticular abscess. This abscess extends to the left superior bladder wall and there is air within the anterior bladder lumen. Findings are considered suspicious for a
colovesical fistula as a result of diverticulitis. As an alternative, if the patient has been recently catheterized, air could've been introduced into the bladder from catheterization.
No evidence of free intraperitoneal air.
Moderate to large amount of stool within the colon proximal to the region of diverticulitis, suggesting constipation/partial colonic obstruction. No significant dilation of small bowel loops.
Coronary artery calcifications. Please correlate with symptoms of and risk factors for coronary artery disease, with further workup as clinically appropriate.
Aortic valvular calcifications. Please correlate with any clinical signs or symptoms that would suggest significant aortic stenosis.
Cholelithiasis. No CT findings to suggest acute cholecystitis.
8 mm calcification within the left anterior uterus, likely a small calcified fibroid.
Bony degenerative changes as described.
Barium Enema 04/12
IMPRESSION:
Long segment partially obstructing stricture of the distal descending/proximal sigmoid colon as described. No convincing evidence for contrast leak or colovesical fistula.
OR 04/13:
Post-op Diagnosis: Large bowel obstruction, sigmoid colon stricture
Procedure Performed: Exploratory laparotomy, lysis of adhesions, sigmoidectomy, creation of end colostomy; TAP block performed by anesthesia
Diverticular abscess
Colonic stricture and large bowel obstruction
-s/p ex-lap, lysis of adhesions, sigmoidectomy and creation of end colostomy on 04/13
-NGT pulled morning of 04/14
-continue IV Zosyn (day 9)
-post-op leukocytosis - monitor
-F/U intra-op cultures
-fluids stopped
-monitor electrolytes
-appreciate surgery
-confirming with surgery OK to advance to clears today '
-per CRS: �Continue Marshall for concern of colovesical fistula
�Will obtain CT cystogram on postop day 5 prior to removing Marshall
-WBC up without localizing signs of infection, may be post-op response. CXR and UA ordered by CRS
Hypokalemia
-replete
Acute Blood Loss Anemia
Post-Op Anemia
-monitor, Hg stable
Suspect UTI
dysuria,increase frequency; improving
Continue antibiotics
# Anemia likely iron deficiency
-ferrous sulfate
-No active bleeding
-Continue to monitor
# Hypertension
-Losartan continued
# Hyperlipidemia
-Lipitor continued
# History of Parkinson's
-Carbidopa continued
# DVT prophylaxis
-Subcu heparin
#CODE status
-full code
Anticipated Discharge: > 48 hours
Subjective/Interval History
-
Date of Service: April 16, 2024
feeling well
diet advanced
no cough or shortness of breath
no LE swelling
Objective Data
-
Labs:
Laboratory Results
04/16/24
06:34
WBC 16.9 H
Hgb 8.5 L
Hct 26.2 L
Plt Count 242
Sodium 135
Potassium 3.1 L
Chloride 105
Carbon Dioxide 26
BUN 9
Creatinine 0.8
Glucose 82
Calcium 7.5 L
Vital Signs:
Vital Signs
Temp Pulse Resp BP Pulse Ox
98.3 F 77 17 144/71 97
04/16/24 07:12 04/16/24 07:12 04/16/24 07:12 04/16/24 07:12 04/16/24 07:12
I&O
04/15/24 04/16/24 04/17/24
06:59 06:59 06:59
Intake Total 720 / 720 2660 / 2660
Output Total 1430 / 1430 1131 / 1131
Balance -710 / -710 1529 / 1529
Review of Systems
-
History Source: Patient
All other systems: Reviewed and negative
Physical Exam
-
General: No Apparent Distress
HEENT: PERRLA
Respiratory: Clear to Auscultation; Negative Wheezes
Cardiac: Regular Rhythm and S1/S2
GI: Other (+ colostomy, gauze over surgical site c/d/i; BONNY drain with serosanguinous fluid )
Skin: Warm and Dry; Negative Rash
Neuro: AO x 3
Psych: Calm
Data Reviewed
-
Diagnostic Radiology: Report Reviewed by me
Labs: Labs Reviewed by me
[2024-04-16] MEDS: KCL 270 MEQ IV (08:57)
[2024-04-16] MEDS: ENTEREG 12 MG PO ×2 (08:57→19:28)
[2024-04-16] MEDS: LIPITOR 10 MG PO (08:57)
[2024-04-16] MEDS: SINEMET 25-100 1 TABLET PO ×3 (08:57→19:28)
[2024-04-16] MEDS: FLUSH (NSS) 2 FLUSH IV (08:58)
[2024-04-16 09:35] LABS: Urine Albumin Negative (Neg - Trace); Urine Bilirubin Negative (Negative); Urine Character Clear (Clear); Urine Color Yellow; Urine Glucose Negative (Negative); Urine Ketone Negative (Negative); Urine Leukocyte Trace (Negative); Urine Nitrite Negative (Negative); Urine Occult Blood 1+ (Negative); Urine Specific Gravity 1.005 (<1.030); Urine Urobilinogen Negative (Neg - 1+)
[2024-04-16 10:12] LABS: Urine Amorphous Seen; Urine Mucus Moderate
[2024-04-16 10:13] LABS: Urine Urothelial Cell 0-2 /LPF (FEW)
[2024-04-16 11:33] LABS: COVID-19 Antigen Negative (Negative)
[2024-04-16 15:27] VITALS: BP 144/72; PULSE 73; O2SAT 97
[2024-04-16 15:43] VITALS: BP 144/22
--- NOTE | 2024-04-16 15:59 | WOUNDNOTE ---
[facility] RN NOTE: Patient visited to for ostomy teaching and appliance change. Daughter Willow present but stated to this ghost writer that 2 family members who are nurses will be assisting patient with ostomy after SNF. Emptying of appliance reviewed with
patient again. Stoma is pink and budded. Peristomal skin intact. Ostomy changed with barrier#[id number] and pouch # [id number]. Midline incision yris and molina clean and intact and covered with sterile 4x4 and secured with micropore tape. BONNY site dressing
also changed. All questions answered. Plan is for SNF next week. All ostomy supplies at bedside. KOLTON Rhoades given update. Will follow as needed.
[2024-04-16] MEDS: LOVENOX 40 MG SC (17:32)
[2024-04-16] MEDS: ZOSYN 100 IV ×2 (17:32→23:37)
--- NOTE | 2024-04-16 18:11 | CM ---
met with patient at bedside.patient is sp colon resection.end colostomy pod#3,had temp 101.6 yesterday,cxr and ua with no infection,without fever today,on regular diet,pain control.plan snf when stable for dc.
[2024-04-16 22:55] VITALS: BP 131/71
[2024-04-17] MEDS: ZOSYN 100 IV ×4 (05:18→23:44)
[2024-04-17 05:53] VITALS: BMI 25.7
[2024-04-17 07:26] LABS: % Basophils 0.2 % (0-2); % Eosinophils 1.1 % (0-6); % Immature Granulocytes 1.7 % (0-0.5); % Lymphocytes 8.7 % (20.5-51.1); % Monocytes 7.4 % (1.7-9.3); % Neutrophils 80.9 % (42.2-75.2); Absolute Eosinophils 0.2 10^3/uL (0-0.7); Absolute Immature Granulocytes 0.2 10^3/uL (0-0.05); Absolute Lymphocytes 1.2 10^3/uL (1.2-3.4); Absolute Neutrophils 10.9 10^3/uL (1.4-6.5); Hematocrit 28.9 % (37.0-47.0); Hemoglobin 9.4 g/dL (12.0-16.0); Mean Corp Hgb Conc. 32.5 g/dL (33.0-37.0); Mean Corpuscular Hgb 26.6 pg (27.0-31.0); Mean Corpuscular Volume 81.6 fL (81.0-99.0); Mean Platelet Volume 9.9 fL (7.4-10.4); Nucleated Red Blood Cells % 0 %; Platelet Count 238 10^3/uL (130-400); Red Blood Cell Count 3.54 10^6/uL (4.20-5.40); Red Cell Dist. Width 14.8 % (11.5-14.5); White Blood Cell Count 13.5 10^3/uL (4.8-10.8)
[2024-04-17] MEDS: LIPITOR 10 MG PO (07:47)
[2024-04-17] MEDS: ENTEREG 12 MG PO ×2 (07:47→19:23)
[2024-04-17] MEDS: SINEMET 25-100 1 TABLET PO ×3 (07:47→19:23)
[2024-04-17 07:52] LABS: Blood Urea Nitrogen 8 mg/dl (7-17); Calcium 8.2 mg/dl (8.4-10.2); Carbon Dioxide 27 mmol/L (22-30); Chloride 106 mmol/L (98-107); Estimated Creatinine Clearance 45 ml/min; Glucose 83 mg/dl (70-99); Magnesium 2.1 mg/dl (1.6-2.3); Potassium 3.7 mmol/L (3.5-5.1); Sodium 136 mmol/L (135-145); eGFR > 60.00
[2024-04-17 07:56] VITALS: BP 162/85
--- NOTE | 2024-04-17 08:26 | W.PN.HOSP.TC ---
Today's Communication/Plan
-
see plan
Assessment / Plan
Assessment / Plan
CT A/P 04/08
IMPRESSION: As described, CT findings compatible with a left pelvic peridiverticular abscess. This abscess extends to the left superior bladder wall and there is air within the anterior bladder lumen. Findings are considered suspicious for a
colovesical fistula as a result of diverticulitis. As an alternative, if the patient has been recently catheterized, air could've been introduced into the bladder from catheterization.
No evidence of free intraperitoneal air.
Moderate to large amount of stool within the colon proximal to the region of diverticulitis, suggesting constipation/partial colonic obstruction. No significant dilation of small bowel loops.
Coronary artery calcifications. Please correlate with symptoms of and risk factors for coronary artery disease, with further workup as clinically appropriate.
Aortic valvular calcifications. Please correlate with any clinical signs or symptoms that would suggest significant aortic stenosis.
Cholelithiasis. No CT findings to suggest acute cholecystitis.
8 mm calcification within the left anterior uterus, likely a small calcified fibroid.
Bony degenerative changes as described.
Barium Enema 04/12
IMPRESSION:
Long segment partially obstructing stricture of the distal descending/proximal sigmoid colon as described. No convincing evidence for contrast leak or colovesical fistula.
OR 04/13:
Post-op Diagnosis: Large bowel obstruction, sigmoid colon stricture
Procedure Performed: Exploratory laparotomy, lysis of adhesions, sigmoidectomy, creation of end colostomy; TAP block performed by anesthesia
Diverticular abscess
Colonic stricture and large bowel obstruction
-s/p ex-lap, lysis of adhesions, sigmoidectomy and creation of end colostomy on 04/13
-NGT pulled morning of 04/14
-continue IV Zosyn (day 10) Dose increased on 04/16 given finding Pseudomonas in culture
-Post-op leukocytosis and fever overnight 04/15-04/16. Unclear etiology - further work-up negative. Zosyn dosing adjusted - will continue through today and monitor
-tolerating full liquid diet
-fluids stopped
-monitor electrolytes
-appreciate surgery
-per CRS: �Continue Marshall for concern of colovesical fistula
�Will obtain CT cystogram on postop day 5 prior to removing Marshall
Hypokalemia
-replete
Acute Blood Loss Anemia
Post-Op Anemia
-monitor, Hg stable
# Anemia likely iron deficiency
-ferrous sulfate
-No active bleeding
-Continue to monitor
# Hypertension
-Losartan continued
# Hyperlipidemia
-Lipitor continued
# History of Parkinson's
-Carbidopa continued
# DVT prophylaxis
-Subcu heparin
#CODE status
-full code
Anticipated Discharge: 24 - 48 hours
Subjective/Interval History
-
Date of Service: April 17, 2024
pain improving
feels well
didn't know when she had a fever; afebrile overnight
Objective Data
-
Labs:
Laboratory Results
04/17/24
06:43
WBC 13.5 H
Hgb 9.4 L
Hct 28.9 L
Plt Count 238
Sodium 136
Potassium 3.7
Chloride 106
Carbon Dioxide 27
BUN 8
Creatinine 0.8
Glucose 83
Calcium 8.2 L
Vital Signs:
Vital Signs
Temp Pulse Resp BP Pulse Ox
98.7 F 74 18 162/85 95
04/17/24 07:56 04/17/24 07:56 04/17/24 07:56 04/17/24 07:56 04/17/24 07:56
I&O
04/16/24 04/17/24 04/18/24
06:59 06:59 06:59
Intake Total 2660 / 2660 1520 / 1520
Output Total 1131 / 1131 3050 / 3050
Balance 1529 / 1529 -1530 / -1530
Review of Systems
-
History Source: Patient
All other systems: Reviewed and negative
Physical Exam
-
General: No Apparent Distress
HEENT: PERRLA
Respiratory: Clear to Auscultation; Negative Wheezes
Cardiac: Regular Rhythm and S1/S2
GI: Other (+ colostomy, gauze over surgical site c/d/i; BONNY drain with serosanguinous fluid )
Skin: Warm and Dry; Negative Rash
Neuro: AO x 3
Psych: Calm
Data Reviewed
-
Diagnostic Radiology: Report Reviewed by me
Labs: Labs Reviewed by me
--- NOTE | 2024-04-17 11:54 | W.PN.CRS1 ---
Today's Communication / Plan
-
Cystogram in am prior to void trial
Continue regular diet
Assessment/Plan
-
83-year-old female presenting with acute diverticulitis with abscess and 8 cm stricture in the sigmoid colon leading to partial obstruction
POD #4 ex lap, Elan's procedure, aurora drain in pelvis due to concern for colovesical fistula; anesthesia performed a tap block
No further fevers, VSS
WBCs trending down
H/H stable
Marshall clearing
Ostomy functioning with +stool/flatus, tolerating diet
+pseudomonas from abscess cx
- Continue regular diet
� Pain control with Tylenol, Toradol, , Tramadol, Dilaudid as needed
� Continue DVT PPx with lovenox
- Stoma team follow for wound care
- Continue IV abx (zosyn)
�Continue Marshall for concern of colovesical fistula
�Will obtain CT cystogram on postop day 5 prior to removing Marshall: tentatively tomorrow if able to be done over the weekend vs friday
� OOB/encourage IS, appreciate PT�recommending SNF for discharge
� Appreciate hospitalist
Subjective Data
Procedure
04/13/24 Exploratory laparotomy, lysis of adhesions, sigmoidectomy, creation of end colostomy; TAP block performed by anesthesia
Subjective Data
Date of Service: April 17, 2024
Patient seen and examined at bedside with Dr. Riggs. Denies n/v. Tolerating clears. Passing flatus/stool via stoma. Pain well managed
Objective Data
-
Vital Signs
Temp Pulse Resp BP Pulse Ox
98.7 F 74 18 162/85 95
04/17/24 07:56 04/17/24 07:56 04/17/24 07:56 04/17/24 07:56 04/17/24 07:56
Intake & Output
0804/17/24 04/18/24
06:59 06:59 06:59
Intake Total 2660 / 2660 1520 / 1520
Output Total 1131 / 1131 3050 / 3050
Balance 1529 / 1529 -1530 / -1530
Intake:
Oral fluids 1110 / 1110 900 / 900
IV fluids (Total) 1100 / 1100
IV piggybacks 450 / 450 620 / 620
Output:
Liquid stool amount 450 / 450
Colostomy 450 / 450
Drain Output (Total) 130 / 130 110 / 110
Right Abdomen Slick-Martinez 130 / 130 110 / 110
Urine, Marshall 1000 / 1000 2490 / 2490
Lab Results
04/17/24 06:43
04/17/24 06:43
Physical Exam
-
General: No Acute Distress
HEENT: Grossly Normal
Abdomen: Soft, Non Distended, Non Tender, Bowel Movement (stoma pink/viable with flatus/stool in appliance) and Other (Marshall with clear yellow urine with old bloody sediment)
Skin: Warm, Dry and Other ([facility])
Wound: No Skin Erythema and Other (yris intact, molina present)
[2024-04-17 15:46] VITALS: BP 119/64; BP 121/63; PULSE 71; O2SAT 95
[2024-04-17 15:58] VITALS: BP 119/64
[2024-04-17] MEDS: LOVENOX 40 MG SC (17:52)
[2024-04-17] MEDS: TORADOL 15 MG IV (19:23)
[2024-04-17 23:21] VITALS: BP 128/70
[2024-04-18] MEDS: ZOSYN 100 IV ×4 (05:02→23:18)
[2024-04-18 06:00] VITALS: BMI 25.6
[2024-04-18 06:28] LABS: % Basophils 0.4 % (0-2); % Eosinophils 2.2 % (0-6); % Immature Granulocytes 2.1 % (0-0.5); % Lymphocytes 10.2 % (20.5-51.1); % Neutrophils 77.1 % (42.2-75.2); Absolute Basophils 0.1 10^3/uL (0-0.2); Absolute Eosinophils 0.3 10^3/uL (0-0.7); Absolute Immature Granulocytes 0.2 10^3/uL (0-0.05); Absolute Lymphocytes 1.2 10^3/uL (1.2-3.4); Absolute Monocytes 0.9 10^3/uL (0.1-0.6); Absolute Neutrophils 8.8 10^3/uL (1.4-6.5); Hematocrit 28.3 % (37.0-47.0); Hemoglobin 9.4 g/dL (12.0-16.0); Mean Corp Hgb Conc. 33.2 g/dL (33.0-37.0); Mean Corpuscular Hgb 27.2 pg (27.0-31.0); Mean Corpuscular Volume 81.8 fL (81.0-99.0); Mean Platelet Volume 9.9 fL (7.4-10.4); Nucleated Red Blood Cells % 0 %; Platelet Count 242 10^3/uL (130-400); Red Blood Cell Count 3.46 10^6/uL (4.20-5.40); Red Cell Dist. Width 14.9 % (11.5-14.5); White Blood Cell Count 11.4 10^3/uL (4.8-10.8)
[2024-04-18 06:59] LABS: Blood Urea Nitrogen 12 mg/dl (7-17); Calcium 8.2 mg/dl (8.4-10.2); Carbon Dioxide 29 mmol/L (22-30); Chloride 102 mmol/L (98-107); Estimated Creatinine Clearance 36 ml/min; Glucose 116 mg/dl (70-99); Potassium 3.3 mmol/L (3.5-5.1); Sodium 135 mmol/L (135-145)
[2024-04-18 08:05] VITALS: BP 160/78
[2024-04-18] MEDS: ENTEREG 12 MG PO ×2 (08:15→19:12)
[2024-04-18] MEDS: LIPITOR 10 MG PO (08:15)
[2024-04-18] MEDS: SINEMET 25-100 1 TABLET PO ×3 (08:16→19:12)
--- NOTE | 2024-04-18 10:03 | W.PN.HOSP.TC ---
Today's Communication/Plan
-
-IV Zosyn 4.5 dosing
-[address] cystogram
-appreciate CRS
-likely approaching SNF early this week
-left VM for daughter
Assessment / Plan
Assessment / Plan
CT A/P 04/08
IMPRESSION: As described, CT findings compatible with a left pelvic peridiverticular abscess. This abscess extends to the left superior bladder wall and there is air within the anterior bladder lumen. Findings are considered suspicious for a
colovesical fistula as a result of diverticulitis. As an alternative, if the patient has been recently catheterized, air could've been introduced into the bladder from catheterization.
No evidence of free intraperitoneal air.
Moderate to large amount of stool within the colon proximal to the region of diverticulitis, suggesting constipation/partial colonic obstruction. No significant dilation of small bowel loops.
Coronary artery calcifications. Please correlate with symptoms of and risk factors for coronary artery disease, with further workup as clinically appropriate.
Aortic valvular calcifications. Please correlate with any clinical signs or symptoms that would suggest significant aortic stenosis.
Cholelithiasis. No CT findings to suggest acute cholecystitis.
8 mm calcification within the left anterior uterus, likely a small calcified fibroid.
Bony degenerative changes as described.
Barium Enema 04/12
IMPRESSION:
Long segment partially obstructing stricture of the distal descending/proximal sigmoid colon as described. No convincing evidence for contrast leak or colovesical fistula.
OR 04/13:
Post-op Diagnosis: Large bowel obstruction, sigmoid colon stricture
Procedure Performed: Exploratory laparotomy, lysis of adhesions, sigmoidectomy, creation of end colostomy; TAP block performed by anesthesia
Diverticular abscess
Colonic stricture and large bowel obstruction
-s/p ex-lap, lysis of adhesions, sigmoidectomy and creation of end colostomy on 04/13
-NGT pulled morning of 04/14
-continue IV Zosyn (day 11) Dose increased on 04/16 given finding Pseudomonas in culture - discussed with surgery. will continue for an additional 4 days to complete 7 days on appropriate dosing (can transition to Cipro)
-patient now afebrile and WBC decreasing
-diet advanced
-fluids stopped
-monitor electrolytes
-appreciate surgery
-per CRS: �Continue Marshall for concern of colovesical fistula
�CT cystogram ordered for today
Hypokalemia
-replete
Acute Blood Loss Anemia
Post-Op Anemia
-monitor, Hg stable
# Anemia likely iron deficiency
-ferrous sulfate
-No active bleeding
-Continue to monitor
# Hypertension
-Losartan continued
# Hyperlipidemia
-Lipitor continued
# History of Parkinson's
-Carbidopa continued
# DVT prophylaxis
-Subcu heparin
#CODE status
-full code
Anticipated Discharge: > 48 hours
Subjective/Interval History
-
Date of Service: April 18, 2024
feeling well
tolerating a regular diet
dressings were changd thisi morning
Objective Data
-
Labs:
Laboratory Results
04/18/24
05:37
WBC 11.4 H
Hgb 9.4 L
Hct 28.3 L
Plt Count 242
Sodium 135
Potassium 3.3 L
Chloride 102
Carbon Dioxide 29
BUN 12
Creatinine 1.0
Glucose 116 H
Calcium 8.2 L
Vital Signs:
Vital Signs
Temp Pulse Resp BP Pulse Ox
98.1 F 71 16 160/78 96
04/18/24 08:05 04/18/24 08:05 04/18/24 08:05 04/18/24 08:05 04/18/24 08:05
I&O
04/17/24 04/18/24 04/19/24
06:59 06:59 06:59
Intake Total 1520 / 1520 1160 / 1160
Output Total 3050 / 3050 2480 / 2480
Balance -1530 / -1530 -1320 / -1320
Review of Systems
-
History Source: Patient
All other systems: Reviewed and negative
Physical Exam
-
General: No Apparent Distress
HEENT: PERRLA
Respiratory: Clear to Auscultation; Negative Wheezes
Cardiac: Regular Rhythm and S1/S2
GI: Other (+ colostomy, gauze over surgical site c/d/i; BONNY drain with serosanguinous fluid )
Skin: Warm and Dry; Negative Rash
Neuro: AO x 3
Psych: Calm
Data Reviewed
-
Diagnostic Radiology: Report Reviewed by me
Labs: Labs Reviewed by me
[2024-04-18] MEDS: COZAAR 50 MG PO (10:21)
--- NOTE | 2024-04-18 11:35 | W.PN.CRS1 ---
Today's Communication / Plan
-
cystogram prior to removing jewell
Assessment/Plan
-
83-year-old female presenting with acute diverticulitis with abscess and 8 cm stricture in the sigmoid colon leading to partial obstruction
POD #5 ex lap, Elan's procedure, aurora drain in pelvis due to concern for colovesical fistula; anesthesia performed a tap block
No further fevers, VSS
WBCs trending down
H/H stable
Ostomy functioning with +stool/flatus, tolerating diet
+pseudomonas from abscess cx
- Continue regular diet
� Pain control with Tylenol, Toradol, , Tramadol, Dilaudid as needed
� Continue DVT PPx with lovenox
- Stoma team follow for wound care
- Continue IV abx (zosyn) continue 7-10 days post op given cx findings
�Continue Jewell for concern of colovesical fistula
�Will obtain cystogram prior to removing Jewell: tentatively today if able to be done over the weekend vs friday
� OOB/encourage IS, appreciate PT�recommending SNF for discharge
� Appreciate hospitalist
Subjective Data
Procedure
04/13/24 Exploratory laparotomy, lysis of adhesions, sigmoidectomy, creation of end colostomy; TAP block performed by anesthesia
Subjective Data
Date of Service: April 18, 2024
Patient seen and examined at bedside with Dr. Riggs. Denies n/v. Denies pain.
Objective Data
-
Vital Signs
Temp Pulse Resp BP Pulse Ox
98.1 F 75 16 131/72 96
04/18/24 08:05 04/18/24 10:21 04/18/24 08:05 04/18/24 10:21 04/18/24 08:05
Intake & Output
04/17/24 04/18/24 04/19/24
06:59 06:59 06:59
Intake Total 1520 / 1520 1160 / 1160
Output Total 3050 / 3050 2480 / 2480
Balance -1530 / -1530 -1320 / -1320
Intake:
Oral fluids 900 / 900 960 / 960
IV piggybacks 620 / 620 200 / 200
Output:
Liquid stool amount 450 / 450 100 / 100
Colostomy 450 / 450 100 / 100
Drain Output (Total) 110 / 110 105 / 105
Right Abdomen Slick-Martinez 110 / 110 105 / 105
Urine, Jewell 2490 / 2490 925 / 925
Urine, Voided 1350 / 1350
Lab Results
04/18/24 05:37
04/18/24 05:37
Physical Exam
-
General: No Acute Distress
HEENT: Grossly Normal
Abdomen: Soft, Non Distended, Non Tender, Bowel Movement (stoma pink/viable with flatus/stool in appliance) and Other (Jewell with clear yellow urine)
Skin: Warm, Dry and Other (BONNY ssf)
Wound: No Skin Erythema and Other (yris intact, molina present)
[2024-04-18 14:43] VITALS: BP 155/67
[2024-04-18] MEDS: LOVENOX 40 MG SC (17:04)
[2024-04-18 23:20] VITALS: BP 137/79
[2024-04-19] MEDS: ZOSYN 100 IV ×4 (05:38→23:32)
[2024-04-19 06:00] VITALS: BMI 25.8
[2024-04-19 06:51] LABS: % Basophils 0.5 % (0-2); % Eosinophils 2.4 % (0-6); % Immature Granulocytes 2.2 % (0-0.5); % Lymphocytes 9.5 % (20.5-51.1); % Monocytes 9.4 % (1.7-9.3); Absolute Basophils 0.1 10^3/uL (0-0.2); Absolute Eosinophils 0.3 10^3/uL (0-0.7); Absolute Immature Granulocytes 0.3 10^3/uL (0-0.05); Absolute Lymphocytes 1.2 10^3/uL (1.2-3.4); Absolute Monocytes 1.2 10^3/uL (0.1-0.6); Absolute Neutrophils 9.8 10^3/uL (1.4-6.5); Hematocrit 30.3 % (37.0-47.0); Hemoglobin 9.9 g/dL (12.0-16.0); Mean Corp Hgb Conc. 32.7 g/dL (33.0-37.0); Mean Corpuscular Hgb 26.5 pg (27.0-31.0); Mean Platelet Volume 9.4 fL (7.4-10.4); Nucleated Red Blood Cells % 0 %; Platelet Count 282 10^3/uL (130-400); Red Blood Cell Count 3.74 10^6/uL (4.20-5.40); Red Cell Dist. Width 14.7 % (11.5-14.5); White Blood Cell Count 12.9 10^3/uL (4.8-10.8)
[2024-04-19] MEDS: COZAAR PO (07:34)
[2024-04-19 07:36] LABS: Blood Urea Nitrogen 13 mg/dl (7-17); Calcium 8.4 mg/dl (8.4-10.2); Carbon Dioxide 27 mmol/L (22-30); Chloride 103 mmol/L (98-107); Estimated Creatinine Clearance 40 ml/min; Glucose 99 mg/dl (70-99); Potassium 3.8 mmol/L (3.5-5.1); Sodium 136 mmol/L (135-145); eGFR > 60.00
[2024-04-19] MEDS: SINEMET 25-100 1 TABLET PO ×3 (07:39→20:12)
[2024-04-19] MEDS: ENTEREG 12 MG PO ×2 (07:39→20:12)
[2024-04-19] MEDS: LIPITOR 10 MG PO (07:39)
[2024-04-19 07:42] VITALS: BP 122/74
--- NOTE | 2024-04-19 10:04 | W.PN.CRS1 ---
Today's Communication / Plan
-
Cystogram.
Assessment/Plan
-
POD 6.
1. Vitals reasonable. White blood cell count normalizing. Continue antibiotics.
2. Cystogram today. Hopefully Marshall can be removed if cystogram negative.
3. Potential for discharge by hospitalist tomorrow.
Subjective Data
Procedure
04/13/24 Exploratory laparotomy, lysis of adhesions, sigmoidectomy, creation of end colostomy; TAP block performed by anesthesia
Subjective Data
Date of Service: April 19, 2024
No new complaints. Tolerating diet. Marshall still in.
Objective Data
-
Vital Signs
Temp Pulse Resp BP Pulse Ox
98.4 F 71 18 122/74 95
04/19/24 07:42 04/19/24 07:42 04/19/24 07:42 04/19/24 07:42 04/19/24 07:42
Intake & Output
04/18/24 04/19/24 04/20/24
06:59 06:59 06:59
Intake Total 1160 / 1160 1190 / 1190
Output Total 2480 / 2480 2990 / 2990
Balance -1320 / -1320 -1800 / -1800
Intake:
Oral fluids 960 / 960 990 / 990
IV piggybacks 200 / 200 200 / 200
Output:
Liquid stool amount 100 / 100 50 / 50
Colostomy 100 / 100 50 / 50
Drain Output (Total) 105 / 105 40 / 40
Right Abdomen Slick-Martinez 105 / 105 40 / 40
Urine, Marshall 925 / 925 1250 / 1250
Urine, Voided 1350 / 1350 1650 / 1650
Lab Results
04/19/24 06:18
04/19/24 06:18
Physical Exam
-
General: No Acute Distress
Chest: Clear
Cardiovascular: Regular Rate & Rhythm
Abdomen: Non Distended, Non Tender and Other (Stoma viable with output; BONNY with serosanguineous)
Extremities: No Calf Tenderness
Incision: Clear, Dry, Intact (Dressings) and No Skin Erythema
--- NOTE | 2024-04-19 10:11 | CM ---
Reviewed chart, patient cleared to work with PT/OT. Will stay review notes and discuss rehab/SNF choices with patient/family.
Plan: Case management will continue to follow and assist with discharge planning. Transfer to SNF when stable.
--- NOTE | 2024-04-19 12:15 | W.PN.HOSP.TC ---
Today's Communication/Plan
-
Monitor vitals
See plan
Cystogram today
Continue with diet
PT/OT
Discharge planning
Assessment / Plan
Assessment / Plan
CT A/P 04/08
IMPRESSION: As described, CT findings compatible with a left pelvic peridiverticular abscess. This abscess extends to the left superior bladder wall and there is air within the anterior bladder lumen. Findings are considered suspicious for a
colovesical fistula as a result of diverticulitis. As an alternative, if the patient has been recently catheterized, air could've been introduced into the bladder from catheterization.
No evidence of free intraperitoneal air.
Moderate to large amount of stool within the colon proximal to the region of diverticulitis, suggesting constipation/partial colonic obstruction. No significant dilation of small bowel loops.
Coronary artery calcifications. Please correlate with symptoms of and risk factors for coronary artery disease, with further workup as clinically appropriate.
Aortic valvular calcifications. Please correlate with any clinical signs or symptoms that would suggest significant aortic stenosis.
Cholelithiasis. No CT findings to suggest acute cholecystitis.
8 mm calcification within the left anterior uterus, likely a small calcified fibroid.
Bony degenerative changes as described.
Barium Enema 04/12
IMPRESSION:
Long segment partially obstructing stricture of the distal descending/proximal sigmoid colon as described. No convincing evidence for contrast leak or colovesical fistula.
OR 04/13:
Post-op Diagnosis: Large bowel obstruction, sigmoid colon stricture
Procedure Performed: Exploratory laparotomy, lysis of adhesions, sigmoidectomy, creation of end colostomy; TAP block performed by anesthesia
Diverticular abscess
Colonic stricture and large bowel obstruction
-s/p ex-lap, lysis of adhesions, sigmoidectomy and creation of end colostomy on 04/13
-NGT pulled morning of 04/14
-continue IV Zosyn (day 11) Dose increased on 04/16 given finding Pseudomonas in culture - discussed with surgery. will continue for an additional 4 days to complete 7 days on appropriate dosing (can transition to Cipro). QTc acceptable
-patient now afebrile and WBC decreasing
-diet advanced
-fluids stopped
-monitor electrolytes
-appreciate surgery
-per CRS: �Continue Marshall for concern of colovesical fistula. Cystogram today.
Hypokalemia
Resolved
Acute Blood Loss Anemia
Post-Op Anemia
-monitor, Hg stable
# Anemia likely iron deficiency
-ferrous sulfate
-No active bleeding
-Continue to monitor
# Hypertension
-Losartan continued
Bifascicular block per EKG
Monitor
# Hyperlipidemia
-Lipitor continued
# History of Parkinson's
-Carbidopa continued
# DVT prophylaxis
-Subcu heparin
#CODE status
-full code
General: No Apparent Distress
HEENT: PERRLA
Respiratory: Clear to Auscultation; Negative Wheezes
Cardiac: Regular Rhythm and S1/S2
GI: Other (+ colostomy, gauze over surgical site c/d/i; BONNY drain with serosanguinous fluid )
Skin: Warm and Dry; Negative Rash
Neuro: AO x 3
Psych: Calm
Anticipated Discharge: Within 24 hours
Subjective/Interval History
-
Date of Service: April 19, 2024
Denies pain
Objective Data
-
Labs:
Laboratory Results
04/19/24
06:18
WBC 12.9 H
Hgb 9.9 L
Hct 30.3 L
Plt Count 282
Sodium 136
Potassium 3.8
Chloride 103
Carbon Dioxide 27
BUN 13
Creatinine 0.9
Glucose 99
Calcium 8.4
Vital Signs:
Vital Signs
Temp Pulse Resp BP Pulse Ox
98.4 F 71 18 122/74 95
04/19/24 07:42 04/19/24 07:42 04/19/24 07:42 04/19/24 07:42 04/19/24 07:42
I&O
04/18/24 04/19/24 04/20/24
06:59 06:59 06:59
Intake Total 1160 / 1160 1190 / 1190
Output Total 2480 / 2480 2990 / 2990
Balance -1320 / -1320 -1800 / -1800
[2024-04-19 15:18] VITALS: BP 135/80; PULSE 72; O2SAT 95
[2024-04-19 15:25] VITALS: BP 135/80
[2024-04-19] MEDS: LOVENOX 40 MG SC (17:10)
[2024-04-19 23:45] VITALS: BP 137/71
[2024-04-20 00:25] VITALS: BP 137/71
[2024-04-20] MEDS: ZOSYN 100 IV (05:32)
[2024-04-20 06:00] VITALS: BMI 25.0
[2024-04-20 07:12] VITALS: BP 143/71
[2024-04-20 08:20] LABS: % Basophils 0.5 % (0-2); % Eosinophils 3.6 % (0-6); % Immature Granulocytes 2.3 % (0-0.5); % Lymphocytes 11.2 % (20.5-51.1); % Monocytes 10.6 % (1.7-9.3); % Neutrophils 71.8 % (42.2-75.2); Absolute Basophils 0.1 10^3/uL (0-0.2); Absolute Eosinophils 0.4 10^3/uL (0-0.7); Absolute Immature Granulocytes 0.3 10^3/uL (0-0.05); Absolute Lymphocytes 1.2 10^3/uL (1.2-3.4); Absolute Monocytes 1.2 10^3/uL (0.1-0.6); Absolute Neutrophils 7.9 10^3/uL (1.4-6.5); Hematocrit 28.4 % (37.0-47.0); Hemoglobin 9.2 g/dL (12.0-16.0); Mean Corp Hgb Conc. 32.4 g/dL (33.0-37.0); Mean Corpuscular Volume 80.2 fL (81.0-99.0); Mean Platelet Volume 9.4 fL (7.4-10.4); Nucleated Red Blood Cells % 0 %; Platelet Count 306 10^3/uL (130-400); Red Blood Cell Count 3.54 10^6/uL (4.20-5.40); Red Cell Dist. Width 14.7 % (11.5-14.5)
[2024-04-20] MEDS: COZAAR 50 MG PO (08:39)
[2024-04-20] MEDS: SINEMET 25-100 1 TABLET PO ×2 (08:39→14:10)
[2024-04-20] MEDS: LIPITOR 10 MG PO (08:40)
[2024-04-20] MEDS: ENTEREG 12 MG PO (08:40)
[2024-04-20 08:51] LABS: Blood Urea Nitrogen 11 mg/dl (7-17); Calcium 8.4 mg/dl (8.4-10.2); Carbon Dioxide 29 mmol/L (22-30); Chloride 103 mmol/L (98-107); Estimated Creatinine Clearance 35 ml/min; Glucose 87 mg/dl (70-99); Potassium 3.7 mmol/L (3.5-5.1); Sodium 136 mmol/L (135-145); eGFR > 60.00
--- NOTE | 2024-04-20 10:20 | W.PN.CRS1 ---
Today's Communication / Plan
-
DC Marshall.
Disposition per hospitalist.
Assessment/Plan
-
POD 7.
1. Cystogram reviewed. No evidence for extravasation or fistula. Marshall to be DC'd this morning.
2. Tolerating diet with stoma function.
3. WBC normalized. Labs reasonable.
4. BONNY removed at bedside.
5. Disposition per hospitalist.
Subjective Data
Procedure
04/13/24 Exploratory laparotomy, lysis of adhesions, sigmoidectomy, creation of end colostomy; TAP block performed by anesthesia
Subjective Data
Date of Service: April 20, 2024
Tolerating diet. No complaints.
Objective Data
-
Vital Signs
Temp Pulse Resp BP Pulse Ox
98.4 F 70 15 143/71 97
04/20/24 07:12 04/20/24 07:12 04/20/24 07:12 04/20/24 07:12 04/20/24 07:12
Intake & Output
04/19/24 04/20/24 04/21/24
06:59 06:59 06:59
Intake Total 1190 / 1190 1840 / 1840
Output Total 2990 / 2990 2345 / 2345
Balance -1800 / -1800 -505 / -505
Intake:
Oral fluids 990 / 990 1440 / 1440
IV fluids (Total) 200 / 200
IV piggybacks 200 / 200 200 / 200
Output:
Liquid stool amount 50 / 50
Colostomy 50 / 50
Drain Output (Total) 40 / 40 20 / 20
Right Abdomen Slick-Martinez 40 / 40 20 / 20
Urine, Marshall 1250 / 1250 2325 / 2325
Urine, Voided 1650 / 1650
Lab Results
04/20/24 07:00
04/20/24 07:00
Physical Exam
-
General: No Acute Distress
Chest: Clear
Cardiovascular: Regular Rate & Rhythm
Abdomen: Soft, Non Distended, Non Tender and Other (Ostomy viable with output; BONNY with serosanguineous)
Extremities: No Calf Tenderness
--- NOTE | 2024-04-20 11:38 | W.PN.HOSP.TC ---
Addendum entered and electronically signed by Jerome Price MD 04/20/24 13:03:
Patient voided. Discharge today
Time of discharge 38 minutes
Original Note:
Today's Communication/Plan
-
Monitor vital signs and see plan
Voiding trial, if passed then likely can be discharged today
Switch antibiotics to ciprofloxacin
DC planning
Assessment / Plan
Assessment / Plan
CT A/P 04/08
IMPRESSION: As described, CT findings compatible with a left pelvic peridiverticular abscess. This abscess extends to the left superior bladder wall and there is air within the anterior bladder lumen. Findings are considered suspicious for a
colovesical fistula as a result of diverticulitis. As an alternative, if the patient has been recently catheterized, air could've been introduced into the bladder from catheterization.
No evidence of free intraperitoneal air.
Moderate to large amount of stool within the colon proximal to the region of diverticulitis, suggesting constipation/partial colonic obstruction. No significant dilation of small bowel loops.
Coronary artery calcifications. Please correlate with symptoms of and risk factors for coronary artery disease, with further workup as clinically appropriate.
Aortic valvular calcifications. Please correlate with any clinical signs or symptoms that would suggest significant aortic stenosis.
Cholelithiasis. No CT findings to suggest acute cholecystitis.
8 mm calcification within the left anterior uterus, likely a small calcified fibroid.
Bony degenerative changes as described.
Barium Enema 04/12
IMPRESSION:
Long segment partially obstructing stricture of the distal descending/proximal sigmoid colon as described. No convincing evidence for contrast leak or colovesical fistula.
OR 04/13:
Post-op Diagnosis: Large bowel obstruction, sigmoid colon stricture
Procedure Performed: Exploratory laparotomy, lysis of adhesions, sigmoidectomy, creation of end colostomy; TAP block performed by anesthesia
Diverticular abscess
Colonic stricture and large bowel obstruction
-s/p ex-lap, lysis of adhesions, sigmoidectomy and creation of end colostomy on 04/13
-NGT pulled morning of 04/14
-continue IV Zosyn (day 11) Dose increased on 04/16 given finding Pseudomonas in culture - discussed with surgery. will continue for an additional 4 days to complete 7 days on appropriate dosing (can transition to Cipro). QTc acceptable. Transition
to Cipro to complete course
-patient now afebrile and WBC decreasing
-diet advanced
-fluids stopped
-monitor electrolytes
-appreciate surgery
Cystogram 04/19 noted, Marshall discontinued by colorectal 04/20. voiding trial
BONNY drain dc'ed 04/20
Hypokalemia
Resolved
Acute Blood Loss Anemia
Post-Op Anemia
-monitor, Hg stable
# Anemia likely iron deficiency
-ferrous sulfate
-No active bleeding
-Continue to monitor
# Hypertension
-Losartan continued
Bifascicular block per EKG
Monitor
# Hyperlipidemia
-Lipitor continued
# History of Parkinson's
-Carbidopa continued
# DVT prophylaxis
-Subcu heparin
#CODE status
-full code
General: No Apparent Distress
HEENT: PERRLA
Respiratory: Clear to Auscultation; Negative Wheezes
Cardiac: Regular Rhythm and S1/S2
GI: Other (+ colostomy)
Skin: Warm and Dry; Negative Rash
Neuro: AO x 3
Psych: Calm
Anticipated Discharge: Today
Subjective/Interval History
-
Date of Service: April 20, 2024
denies nausea
Objective Data
-
Labs:
Laboratory Results
04/20/24
07:00
WBC 11.0 H
Hgb 9.2 L
Hct 28.4 L
Plt Count 306
Sodium 136
Potassium 3.7
Chloride 103
Carbon Dioxide 29
BUN 11
Creatinine 0.9
Glucose 87
Calcium 8.4
Vital Signs:
Vital Signs
Temp Pulse Resp BP Pulse Ox
98.4 F 70 15 143/71 97
04/20/24 07:12 04/20/24 07:12 04/20/24 07:12 04/20/24 07:12 04/20/24 07:12
I&O
04/19/24 04/20/24 04/21/24
06:59 06:59 06:59
Intake Total 1190 / 1190 1840 / 1840
Output Total 2990 / 2990 2345 / 2345
Balance -1800 / -1800 -505 / -505
[2024-04-20] MEDS: CIPRO 500 MG PO (11:59)
--- NOTE | 2024-04-20 12:09 | CM ---
Addendum entered by DWAYNE Mahoney 04/20/24 12:44:
Received return call from [facility] in admissions at [facility] who stated that she has a bed for patient today. Updated attending
#for report [phone] and fax# [phone].
Received call back from patient's daughter, Willow, who confirmed that she can transport patient to [facility] after 3.
Original Note:
Reviewed chart, met with patient who is still agreeable to going to [facility] Placed a call to [facility] in admissions at [facility] She stated that she will review referral and report back regarding whether she can take patient back today. Patient's RN
stated that patient may be medically cleared pending removal of jewell.
Placed a call to patient's daughter to discuss potential discharge today. Had to leave a voice mail message. Will confirm that she is still agreeable to [facility] and if she will be able to transport patient.
Plan: Case management will continue to follow and assist with discharge planning. [facility]
--- NOTE | 2024-04-20 13:03 | W.DCSUMMARY ---
Discharge Summary
Discharge Data
Date of Admission: 04/08/24
Date of Discharge: 04/20/24
-
Pending Results: No
Hospital Course
83-year-old female with history of anemia, hypertension, bulimia, Parkinson's came to the hospital with diverticular abscess and colonic stricture and large bowel obstruction. Patient was seen by colorectal surgery and was taken for ex lap, lysis
of adhesions, sigmoidectomy and creation of end colostomy. Patient was also initially started on IV antibiotic which was later transitioned to p.o. antibiotics prior to discharge. Patient culture grew Pseudomonas. Patient also had Marshall catheter
which was discontinued prior to discharge and patient was able to void on her own. Patient was also evaluated by physical therapy recommended SNF on discharge. Once her bowel function returned and she was able to tolerate oral diet, she was then
discharged to SNF with instructions to follow-up with all her physicians outpatient.
Discharge Plan
-
Patient Disposition: Care Home/SNF
Discharge Diagnosis/Procedures: Large bowel obstruction secondary to sigmoid stricture with pelvic abscess status post exploratory laparotomy with lysis of adhesions, sigmoidectomy, end colostomy creation
Acute blood loss anemia
Urinary retention
Diet: Regular
Activity: No strenuous activity
Additional Activity: Do not lift over 10lbs (gallon of milk)
Driving Restrictions: Not until seen by your Dr
Bathing Restrictions: OK to Shower
Blood Work: CBC and BMP next week with primary care provider
Wound Care: Cover your surgical wounds with dry gauze dressing and change daily and as needed until drainage no longer noted then leave open to air
Activity Restrictions/Additional Instructions:
To be used for colostomy
Change appliance q 3-4 days and if leakage
Can shower with pouch on or off
Constance wafer # [id number] and Constance pouch # [id number]
For skin irritation surrounding stoma, apply dusting of ostomy powder followed by blotting with skin prep.
*On edge of cut out wafer applied ring of stoma paste, toothpaste thick, before securing wafer over stoma. Snap on pouch tail end pointing down.
Call supply company (list in folder provided) for monthly Ostomy supplies after discharge (ask VN to order supplies while on service).
Follow up with surgeon.
Call [facility] RN nurse for ostomy pouching concerns or leakage problems [phone] or [phone] or [phone].
Referrals:
Barbie Lay MD [Family Provider] - in less than 1 week
Lex Sanchez MD [Active] - in two to three weeks
Prescriptions:
New
acetaminophen 325 mg Tablet
650 mg PO Q4HPRN PRN (Reason: mild pain/ fever>100.5F) Qty: 0 0RF
ciprofloxacin HCl 500 mg Tablet
500 mg PO BID Qty: 6 0RF
alvimopan 12 mg Capsule
12 mg PO BID Qty: 0 0RF
Continued
losartan 50 mg Tablet
50 mg PO DAILY
atorvastatin 10 mg Tablet
10 mg PO DAILY
cyanocobalamin (vitamin B-12) 1,000 mcg Tablet
1,000 mcg PO DAILY
ferrous sulfate 325 mg (65 mg iron) Tablet
325 mg PO DAILY
carbidopa-levodopa 25-100 mg Tablet
1 tab PO TID@0800,1330,1930
Patient Comments:
04/08/24: Patient states she missed her 19:30 dose today
cholecalciferol (vitamin D3) [Vitamin D3] 25 mcg (1,000 unit) Tablet
25 mcg PO DAILY
Discharge Orders:
Discharge Patient (As Directed); Ordered 04/20/24
Ordered By: Jerome Price
Discharge Date and Time
Discharge Date/Time: 04/20/24 15:40
Print Language: TANZANIAN
--- NOTE | 2024-04-20 13:40 | WOUNDNOTE ---
WON RN NOTE: Followed up today for pouch change and further teaching with patient. Had patient close and open tail end of pouch successfully, reviewed emptying. Patient declined cutting out wafer, with Parkinson's makes using scissors difficult.
Patient states her friend is a former nurse and will be helping her when she goes home. Patient expects to be discharged to rehab today. Stoma red and budded, for liquid brown stool. Peristomal skin with mild redness, stool just starting to pool
under wafer. Applied dusting of powder followed by skin prep. On edge of cut out wafer applied ring of stoma paste, showed how to apply and wrote instructions in folder. Reviewed folder contents with patient and answered questions. Called [facility] for
additional supplies and asked nurse Kandis to give to patient before discharge.
[2024-04-20 14:52] VITALS: BP 147/83
--- NOTE | 2024-04-20 15:58 | NUTR ---
04/20 15:58 RD with order writing privileges was to change diet. Was not able to complete the order change due to patients discharge.
== END 2024-04-20 15:40 | DRG 329 ==
LOC: 2 SOUTH 21:24
PROVIDERS: Registered Nurse; Student in an Organized Health Care Education/Training Program; Surgery; ADMITTING PHYSICIAN Hospitalist; ATTENDING PHYSICIAN Internal Medicine; EMERGENCY PHYSICIAN Emergency Medicine; FAMILY PHYSICIAN Internal Medicine; OTHER PHYSICIAN Surgery
PROC: 0DTN0ZZ Resection of Sigmoid Colon, Open Approach (ICD-10-PCS; 2024-04-13)
DX: K57.20 Diverticulitis of large intestine with perforation and abscess without bleeding (principal); K65.1 Peritoneal abscess; D62 Acute posthemorrhagic anemia; K56.51 Intestinal adhesions [bands], with partial obstruction; G20.A1 Parkinson's disease without dyskinesia, without mention of fluctuations; D50.9 Iron deficiency anemia, unspecified; I10 Essential (primary) hypertension; B96.5 Pseudomonas (aeruginosa) (mallei) (pseudomallei) as the cause of diseases classified elsewhere; E78.5 Hyperlipidemia, unspecified; F41.9 Anxiety disorder, unspecified; I25.10 Atherosclerotic heart disease of native coronary artery without angina pectoris; K80.20 Calculus of gallbladder without cholecystitis without obstruction; M54.16 Radiculopathy, lumbar region; M19.90 Unspecified osteoarthritis, unspecified site; R33.9 Retention of urine, unspecified; Z79.899 Other long term (current) drug therapy; Z87.19 Personal history of other diseases of the digestive system
CPT/HCPCS: 88307; 51600; 71046; 74018; 74019; 74177; 74270; 74430; 80048; 80053; 81003; 81015; 82962; 83690; 83735; 85025; 85027; 85610; 85730; 86850; 86900; 86901; 87070; 87075; 87077; 87086; 87186; 87205; 87811; 93005; 96360; 96361; 97112; 97116; 97162; 97164; 97530; 99285; C1776; J1335; Q9967

== ENCOUNTER → 2024-04-26 14:06 | Outpatient (REF) | payer OTHER, MEDICARE, BC, SELFPAY ==
[2024-04-26 14:48] LABS: % Basophils 0.6 % (0-2); % Eosinophils 2.7 % (0-6); % Immature Granulocytes 0.8 % (0-0.5); % Lymphocytes 13.8 % (20.5-51.1); % Monocytes 9.9 % (1.7-9.3); % Neutrophils 72.2 % (42.2-75.2); Absolute Basophils 0.1 10^3/uL (0-0.2); Absolute Eosinophils 0.2 10^3/uL (0-0.7); Absolute Immature Granulocytes 0.1 10^3/uL (0-0.05); Absolute Lymphocytes 1.2 10^3/uL (1.2-3.4); Absolute Monocytes 0.9 10^3/uL (0.1-0.6); Absolute Neutrophils 6.4 10^3/uL (1.4-6.5); Hematocrit 26.4 % (37.0-47.0); Hemoglobin 8.4 g/dL (12.0-16.0); Mean Corp Hgb Conc. 31.8 g/dL (33.0-37.0); Mean Corpuscular Volume 84.9 fL (81.0-99.0); Mean Platelet Volume 9.6 fL (7.4-10.4); Nucleated Red Blood Cells % 0 %; Platelet Count 324 10^3/uL (130-400); Red Blood Cell Count 3.11 10^6/uL (4.20-5.40); Red Cell Dist. Width 16.3 % (11.5-14.5); White Blood Cell Count 8.9 10^3/uL (4.8-10.8)
[2024-04-26 14:57] LABS: Blood Urea Nitrogen 17 mg/dl (7-17); Calcium 8.4 mg/dl (8.4-10.2); Carbon Dioxide 26 mmol/L (22-30); Chloride 103 mmol/L (98-107); Glucose 88 mg/dl (70-99); Potassium 3.8 mmol/L (3.5-5.1); Sodium 136 mmol/L (135-145)
== END ==
LOC: OLABP 14:06
PROVIDERS: ATTENDING PHYSICIAN Family Medicine
DX: G20.A1 Parkinson's disease without dyskinesia, without mention of fluctuations (principal); I45.2 Bifascicular block; I10 Essential (primary) hypertension; D62 Acute posthemorrhagic anemia; E87.6 Hypokalemia; Z93.3 Colostomy status; K56.699 Other intestinal obstruction unspecified as to partial versus complete obstruction; K56.600 Partial intestinal obstruction, unspecified as to cause; K57.80 Diverticulitis of intestine, part unspecified, with perforation and abscess without bleeding; Z48.815 Encounter for surgical aftercare following surgery on the digestive system
CPT/HCPCS: 36415; 80048; 85025

== ENCOUNTER → 2024-06-15 06:26 | Day surgery (SDC) | payer MEDICARE, BC, SELFPAY | LOC: GI 06:26 | PROVIDERS: ATTENDING PHYSICIAN Surgery | DX: K52.89 Other specified noninfective gastroenteritis and colitis (principal); K57.30 Diverticulosis of large intestine without perforation or abscess without bleeding; K64.4 Residual hemorrhoidal skin tags; Z93.3 Colostomy status; Z90.49 Acquired absence of other specified parts of digestive tract; Z87.19 Personal history of other diseases of the digestive system | CPT/HCPCS: 45378 ==

== ENCOUNTER 2024-08-06 05:57 | Inpatient (IN) | payer MEDICARE, BC, SELFPAY ==
[2024-07-27 11:27] LABS: Hematocrit 36.8 % (37.0-47.0); Hemoglobin 11.4 g/dL (12.0-16.0); Mean Corpuscular Hgb 26.8 pg (27.0-31.0); Mean Corpuscular Volume 86.4 fL (81.0-99.0); Mean Platelet Volume 9.9 fL (7.4-10.4); Platelet Count 177 10^3/uL (130-400); Red Blood Cell Count 4.26 10^6/uL (4.20-5.40); White Blood Cell Count 8.2 10^3/uL (4.8-10.8)
[2024-07-27 11:37] LABS: INR 0.97; PT 13.2 Sec (11.4-14.6)
[2024-07-27 11:38] LABS: APTT 31.5 Sec (23.4-35.0)
[2024-07-27 12:16] VITALS: BMI 25.7
[2024-07-27 12:18] LABS: ALT (SGPT) < 10 U/L (0-35); AST (SGOT) 24 U/L (14-36); Albumin 4.1 g/dl (3.5-5.0); Alkaline Phosphatase 119 U/L (38-126); Blood Urea Nitrogen 24 mg/dl (7-17); Calcium 9.1 mg/dl (8.4-10.2); Carbon Dioxide 29 mmol/L (22-30); Chloride 104 mmol/L (98-107); Estimated Creatinine Clearance 42 ml/min; Glucose 92 mg/dl (70-99); Sodium 142 mmol/L (135-145); Total Bilirubin 0.5 mg/dl (0.2-1.3); Total Protein 6.8 g/dl (6.3-8.2); eGFR > 60.00
--- NOTE | 2024-07-28 14:55 | PTCARENOTE ---
Patients 07/27 ECG abnormal- reviewed by Dr. Hancock- no additional interventions indicated
[2024-08-06] VITALS (28 sets, daily range): BP systolic 84–163; BP diastolic 37–86; BMI 25.7
[2024-08-06] MEDS: CELEBREX 200 MG PO (06:34)
[2024-08-06] MEDS: TYLENOL 1000 MG PO (06:35)
[2024-08-06] MEDS: ENTEREG 12 MG PO (06:35)
[2024-08-06] MEDS: HEPARIN 5000 UNITS SC ×2 (06:35→19:37)
--- NOTE | 2024-08-06 17:28 | W.IMMPOSTOP ---
Surgical Immed Post Op Note
-
Primary Surgeon: Lex Sanchez MD
Assisting Surgeon: DANICA Acosta, Saul Riggs MD
Pre-op Diagnosis: h/o colostomy, diverticular stricture
Post-op Diagnosis: h/o colostomy, diverticular stricture, pelvic abscess
Procedure Performed: robotic colostomy reversal, lysis of adhesions greater than 3 hours, flexible sigmoidoscopy, repair of cecal injury x 2, laparoscopic tap block
Anesthesia Type: General
Specimen / Cultures: Colostomy, rectosigmoid, donuts
Estimated Blood Loss: 150 mL
Urine output: 800 mL
IVF 2.6 L crystalloid
Complications: None
Operative Findings: Took down colostomy and placed anvil with pursestring 3-0 Prolene, secured to diverticula with 2-0 Vicryl; placed port And insufflated; significant adhesions from the omentum to the anterior abdominal wall as well as interloop
bowel adhesions, adhesions from the cecum to the anterior pelvis, uterus and rectal stump; identified a small abscess between the cecum and the left anterior pelvis with drainage of about 3 mL of whitish/fibrinous material; lysed multiple adhesions
from the omentum and small bowel to the colostomy and descending colon mesentery; about 6 cm of sigmoid remained on the rectal stump, which was clearly scarred and strictured; perform flexible sigmoidoscopy with evacuation of multiple inspissated
stool and mucus; identified ureters bilaterally, divided the LINETTE pedicle and divided the rectum at about 10 cm; performed EEA stapled anastomosis, donuts intact, leak test negative; repaired hole in the omentum with 2-0 Vicryl running stitch; closed
the colostomy site with 2-0 Vicryl on the peritoneal/posterior sheath and oh Stratafix on the anterior sheath; performed pursestring deep dermal and packed the ostomy site with Betadine soaked packing; closed port sites with 4-0 Monocryl; removed to
the right stent and left the left stent and Marshall
--- NOTE | 2024-08-06 17:38 | OR.RPT ---
Operative Report
Operative Report
DATE OF OPERATION: 08/06/2024
SURGEON: Lex Sanchez MD
PREOPERATIVE DIAGNOSIS: History of colostomy, diverticular stricture
POSTOPERATIVE DIAGNOSIS: History of colostomy, diverticular stricture, pelvic abscess
OPERATION: Robotic colostomy reversal, adhesiolysis greater than 3 hours, repair of cecal injury x 2, mesenteric angiography with ICG, flexible sigmoidoscopy, laparoscopic TAP block
ASSISTANTS:
1. DANICA Acosta
2. Martin Riggs MD, performed flexible sigmoidoscopy and EEA stapler
ANESTHESIA: General
ESTIMATED BLOOD LOSS: 150 mL
IVF: 2.6 L crystalloid
URINE OUTPUT: 800 mL
FINDINGS:
1. Numerous intra-abdominal adhesions throughout the abdomen and pelvis requiring extensive adhesiolysis
2. Small abscess between the cecum, which was located in the pelvis, and right anterior pelvis; evacuated 2 to 3 cc of purulent fibrinous material; repaired cecum with Lembert stitches
3. Small, 5 mm, ecchymotic area noted on the cecum, likely retraction injury; oversewn with Lembert stitches
4. Elan stump with 6 cm of thickened strictured sigmoid colon; transected at 10 cm from the anal verge and performed EEA stapled anastomosis; intact donuts x2, leak test negative
SPECIMENS:
1. Colostomy
2. Rectosigmoid
2. Donuts
DRAINS: None
COMPLICATIONS: No immediate complications.
INDICATIONS: The patient is a 83-year-old female who originally presented to the [place] ED with a large bowel obstruction due to diverticular stricture. She required a Hathaway's procedure with end colostomy. She has completely recovered and
presents for elective colostomy reversal. The operation was discussed with the patient in detail, including the risks, benefits and alternatives. Risks described included, but not limited to, bleeding, infection, anastomotic leak, damage to nearby
structures (i.e.- ureter, bowel, solid organs), incisional hernia, need for ostomy creation, conversion to open, inability to reverse the ostomy and anesthetic risks. The patient understood and agreed to proceed.
PROCEDURE IN DETAIL: The patient was taken to the operating room and placed on the operating table in supine position. Sequential compression devices were placed bilaterally. General anesthesia was induced and the patient was intubated without
complication. The patient was placed in lithotomy position with both arms tucked. The ostomy was sutured closed with 2-0 Vicryl. The abdomen was prepped and draped in a sterile fashion. A time-out was performed verifying the correct patient,
procedure, operative site, positioning, and special equipment. Urology performed a cystoscopy, placed bilateral ureteral stents, injected each ureter with 2.5mL of ICG and placed a Jewell. Anesthesia placed an orogastric tube. Preoperative
antibiotics were given. A marking pen was used to roberto out the midline.
Using electrocautery, the mucocutaneous junction was divided circumferentially around the colostomy. This was taken down to the level of the fascia with meticulous dissection, in order to prevent injury to the colon. Hemostasis was achieved. I
entered the abdominal cavity and cleared the surrounding area of adhesions using a finger sweep. After the colostomy was completely free from the abdominal wall, the colostomy was assessed and a division site was selected to exclude any injured
colon from the future anastomosis. A window was created in the mesentery at this point and the mesentery was divided using clamps, Metzenbaum scissors and 0 Vicryl ties. The colon was divided with Bovie electrocautery. The colostomy was passed
off as specimen. A loop forceps was used to ensure adequate diameter of the colon. A 3-0 Prolene was sutured in a [place] fashion around the edge of the colon. The anvil was placed and the pursestring was closed around it. The anvil staple line
was cleared from any intervening mesentery and fat. A diverticulum was overlying the anvil staple line. This was pulled in toward the post with a 2-0 Vicryl. The anvil and colon was then returned to the abdomen. A small Erickson with port cap was
placed and a robotic 12 mm port was placed through the port cap. The abdomen was insufflated. The robotic endoscope was advanced and the abdomen was explored.
There were multiple adhesions noted from the omentum and bowel to the anterior abdominal wall, as well as interloop adhesions, and adhesions from the cecum to the anterior pelvis, uterus and rectal stump. I used laparoscopic instruments to clear
enough adhesions from the anterior abdominal wall in order to place the ports. Four 8mm robotic ports were placed under direct visualization in a diagonal fashion from Fuentes's point to the right lower quadrant, as well as an 8mm assist port in the
right lateral mid abdomen, taking care to avoid injury to the right epigastric vessels. The left upper quadrant port was changed to the air seal port. The patient was placed in steep Trendelenburg and [id number]. The robot was docked from the
patient's left side. From the RLQ to Fuentes's point, the instruments introduced were the scissors, camera, bipolar grasper and tip-up grasper, respectively.
I continued taking down the remainder of the adhesions from the anterior abdominal wall to the omentum and bowel. The patient's ascending colon and cecum were redundant and the cecum was located at the pelvic inlet, adherent to the anterior pelvis,
uterus and rectal stump. While freeing this from the pelvic inlet, I encountered an abscess between the cecum and the left anterior pelvis. I suctioned about 3 mL of whitish fibrinous material. Once the cecum was free, I evaluated the area of the
abscess and remainder of the cecum. To prevent any delayed injury, I imbricated the area of the cecum affected by the abscess using Vicryl Lembert stitches. Additionally, I noted a small spot more proximally on the cecum that appeared ecchymotic,
likely a retraction injury. There was no disruption of the serosa. To prevent a delayed injury, I imbricated this as well using Vicryl Lembert stitches.
Once the cecum and remainder of the small bowel was cleared from the pelvis, I started to free up the descending colon with anvil. At this point, the patient had been in steep Trendelenburg for about 3.5 hours. I returned her to level for this
portion of the surgery. With meticulous dissection, I lysed adhesions between the small bowel and the descending colon as well as descending mesocolon. I freed up the descending colon from the attachments laterally to the level of the splenic
flexure, but I did not free up the splenic flexure itself. After these maneuvers, there appeared to be plenty of length. About 30 minutes had passed and I returned the patient to steep Trendelenburg.
I turned my attention to the pelvis. I easily identified the bilateral ureters using firefly. I freed adhesions between the rectal stump and pelvic sidewall and the uterus. The most proximal aspect of the rectal stump appeared thickened and
strictured. It also was clear that the most distal aspect of the rectal stump included several centimeters of rectosigmoid. At this point, I performed a flexible sigmoidoscopy to evaluate the lumen of the rectal stump. There was copious
inspissated stool and mucus which I evacuated with manual disimpaction and copious irrigation. Extraluminally, I identified my proposed transection point, a few centimeters distal to the rectosigmoid junction, which would exclude the thickened
portion of rectosigmoid. I returned to the console to finish mobilizing the rectal stump. I elevated the rectosigmoid and developed the plane inferior to the mesentery in a medial to lateral approach, taking care to avoid injury to the hypogastric
nerves. I identified the left ureter using firefly. I circumferentially dissected out the LINETTE pedicle and divided this using the vessel sealer, making sure I was safe from the ureter. I divided the remainder of the rectosigmoid mesentery. I
entered the presacral plane posteriorly by elevating the proximal rectum. After dissecting down to just beyond the sacral promontory, I continued my dissection bilaterally to the level of the anterior reflection, a couple centimeters distal to my
proposed transection point. I dissected between the rectum and mesorectum at my transection point using the vessel sealer and ligated the mesorectum. I stapled and divided the proximal rectum, at about 10 cm from the anal verge, using a green load
of the 60 mm robotic stapler. The rectosigmoid was removed through the Erickson port and passed off as specimen. At this point, Dr. Riggs joined the surgery to assist with the flexible sigmoidoscopy and EEA stapler. He passed up the EEA sizers in
progressively increasing size, and the rectal stump accommodated the largest sizer easily. I checked my reach from the descending colon and it was more than adequate. Additionally, the marginal artery was identified extending to the level of the
anvil with a good pulse, which was reassuring for good perfusion.
The operative field was surveyed and hemostasis was ensured. Dr. Riggs passed the EEA stapler transanally to the distal staple line. The staple line was oriented inferiorly. Therefore, the pin was extended just superior to the staple line,
excluding it from my anastomosis. The anvil was connected with the anvil. After ensuring there was no twist to the mesentery and there was no tension, the EEA stapler was closed for 1 minute and fired. Both donuts were intact. A leak test was
performed by filling the pelvis with saline, occluding the proximal lumen and insufflating with the flexible sigmoidoscope. There was no evidence of leak from the anastomosis. Endoscopically, the anastomosis was intact. It appeared well-perfused
from the colon and rectal side of the anastomosis. The colorectum was desufflated and the flexible sigmoidoscope removed. The operative field was evaluated once more and hemostasis was assured. The omentum was retracted back down toward the
pelvis. However, it would not reach the pelvis to provide a buttress to our anastomosis. I noted a defect within the omentum. Unfortunately, the omentum in this area was adherent to the adjacent small bowel and would require significant
additional adhesiolysis to resect this area of the omentum. However, the omentum was well-perfused in the area of the defect. Therefore, I elected to close the defect with a running 2-0 Vicryl stitch in order to prevent any future internal hernia.
The robotic instruments were removed and the robot was undocked. Using laparoscopic visualization, a TAP block was performed using a total of 30 mL of 0.25% Marcaine with epinephrine mixed with dexamethasone and injecting in the transverse
abdominis plane bilaterally. The remaining ports were removed under direct visualization and no bleeding was noted. The colostomy site was closed. First, the edges of the anterior fascia were cleaned from the subcutaneous fat. The peritoneum and
posterior fascia was closed with a running 2-0 Vicryl. The anterior fascia was closed using an 0 Stratafix suture. The incisions were then irrigated. The skin opening of the colostomy wound was tightened by running a 2-0 Vicryl stitch in a deep
dermal pursestring fashion. The wound was then packed with plain packing soaked in Betadine. The remaining 30 cc of 0.25% Marcaine with epinephrine mixed with dexamethasone were injected around the incisions. The incisions were then closed with
running subcuticular 4-0 Monocryl and dressed with Dermabond.
At this point, the procedure was complete. The patient was awoken and extubated without complication. The right stent was removed, and the left stent and Jewell were left in place. All needle, sponge and instrument counts were reported as correct.
The patient tolerated the procedure well and was transferred to the recovery room in stable condition with the jewell in place.
Of note, Martin Riggs MD, residential real estate assistant, was necessary during this procedure for exploratory purposes, performance of the flexible sigmoidoscopy and handling of the EEA stapler. I was present for the entire duration of the case.
DICTATED BY: Lex Sanchez MD
[2024-08-06 18:13] LABS: % Basophils 0.1 % (0-2); % Immature Granulocytes 0.5 % (0-0.5); % Monocytes 10.1 % (1.7-9.3); % Neutrophils 87.3 % (42.2-75.2); Absolute Immature Granulocytes 0.1 10^3/uL (0-0.05); Absolute Lymphocytes 0.4 10^3/uL (1.2-3.4); Absolute Neutrophils 17.6 10^3/uL (1.4-6.5); Hematocrit 32.4 % (37.0-47.0); Hemoglobin 10.5 g/dL (12.0-16.0); Mean Corp Hgb Conc. 32.4 g/dL (33.0-37.0); Mean Corpuscular Hgb 27.5 pg (27.0-31.0); Mean Corpuscular Volume 84.8 fL (81.0-99.0); Mean Platelet Volume 9.7 fL (7.4-10.4); Nucleated Red Blood Cells % 0 %; Platelet Count 166 10^3/uL (130-400); Red Blood Cell Count 3.82 10^6/uL (4.20-5.40); Red Cell Dist. Width 13.8 % (11.5-14.5); White Blood Cell Count 20.2 10^3/uL (4.8-10.8)
[2024-08-06 18:28] LABS: Blood Urea Nitrogen 24 mg/dl (7-17); Calcium 7.7 mg/dl (8.4-10.2); Carbon Dioxide 17 mmol/L (22-30); Chloride 103 mmol/L (98-107); Estimated Creatinine Clearance 37 ml/min; Glucose 217 mg/dl (70-99); Potassium 3.7 mmol/L (3.5-5.1); Sodium 140 mmol/L (135-145); eGFR > 60.00
--- NOTE | 2024-08-06 18:40 | SUR.PHASEI ---
patient received in pacu - ambu on 100% placed on vent SIMV, rare assist of vent for breathing, sedate, does not respond to voice and or tactile stimuli, crepitus throughout trunk, neck head and arms. labs drawn and sent BP labile 80- 110 systolic
, spoke with Dr Sanchez and Dr Hancock concerning patient disposition. ICCU order received, hospitalist called. PCXR ordered and called for. jewell and left ureteral stent in place - tea color urine. Dr Sanchez advised at 1843 of lab results -asked
to call family and update.
--- NOTE | 2024-08-06 19:30 | PTCARENOTE ---
Addendum entered by Sandrita Ramirez RN 08/07/24 01:23:
Crepitus noted in bilateral upper extremities
Original Note:
Patient received from PACU. Intubated. NSR on monitor, temp low, jenniffer hugger on. Generalized anasarca noted. #7 ETT at 23 cm at the teeth, AC 14 TV 450 FIO2 40% Peep 5, lungs coarse bilaterally. Abdomen round soft. 5 lap sites open to air.
Dressing on left side of abdomen clean dry. Marshall catheter with urinary stent draining josey urine with sediment. Sacral foam maintained. #18 g in right wrist with IVF infusing. #18 g in left wrist flushed and patent..
--- NOTE | 2024-08-06 19:34 | HPS.HSE ---
Family Physician
-
Family Physician: Barbie Lay
Chief Complaint
-
inability to extubate
History of Present Illness
83-year-old female past medical history of hypertension, hyperlipidemia, anxiety, lumbar spinal stenosis, Parkinson's disease, skin cancer, diverticular stricture who recently had previously underwent Hathaway's procedure for diverticular stricture.
Today she underwent Hathaway's reversal. She was going to be extubated in PACU by anesthesia but she was not spontaneously breathing and extubation was not attempted.
Medical History
Past Medical History
Past Medical History: Reports Other (hypertension, hyperlipidemia, anxiety, lumbar spinal stenosis, Parkinson's disease, skin cancer, diverticular stricture)
Past Surgical History: Reports Other (Hathaway's procedure)
Social History
Tobacco: Non-smoker
Alcohol: None
Drug: None
Family History
Family History: Not pertinent
Allergies / Home Medications
Allergies reflects when Allergies were last updated in [facility].
Home Medications with original date entered in [facility]
Allergy/Medication List:
Allergies
Allergy/AdvReac Type Severity Reaction Status Date / Time
No Known Allergies Allergy Verified 08/06/24 06:29
Home Medications
atorvastatin 10 mg tablet 10 mg PO DAILY High Cholesterol 04/08/24
carbidopa 25 mg-levodopa 100 mg tablet 1 tab PO TID@0800,1330,1930 Neurological Condition 04/08/24
cholecalciferol (vitamin D3) 25 mcg (1,000 unit) tablet (Vitamin D3) 25 mcg PO DAILY Supplement 04/08/24
cyanocobalamin (vitamin B-12) 1,000 mcg tablet 1,000 mcg PO DAILY Supplement 04/08/24
ferrous sulfate 325 mg (65 mg iron) tablet 325 mg PO MO Supplement 04/08/24
losartan 50 mg tablet 50 mg PO DAILY Blood Pressure 04/08/24
acetaminophen 325 mg tablet 650 mg (2 x 325 mg) PO Q4HPRN PRN mild pain/ fever>100.5F #0 tabs 04/20/24
metronidazole 500 mg tablet 500 mg PO PRE OP 07/30/24
neomycin 500 mg tablet 1 g PO PRE OP 07/30/24
polyethylene glycol 3350 17 gram oral powder packet (Miralax) 17 g PO DAILY 07/30/24
sodium sul 1.479 gram-potas ch 0.188 gram-magnes sul 0.225 gram tablet (Sutab) 0 tab PO PRE OP 07/30/24
Review of Systems
-
Unable to obtain full review of systems at this time due to: Patient Intubation
A 12 point ROS was completed and negative except as noted: No
Physical Exam
Vital Signs
Vital Signs
Temp Pulse Resp BP Pulse Ox
93.3 F L 82 11 110/53 98
08/06/24 19:21 08/06/24 18:53 08/06/24 18:53 08/06/24 18:53 08/06/24 18:53
Physical Exam
General: Well Developed, Well Nourished and No Apparent Distress
HEENT: NormoCephalic, Moist mucous membranes and Atraumatic
Respiratory: Clear
Cardiac: S1/S2 and Regular Rhythm; No Murmur or Rub
GI: Soft, Non Tender, Non Distended and Normal Bowel Sounds; No Organomegaly
Rectal: Deferred by Provider
Musculoskeletal: No Clubbing, No Cyanosis and No Edema
Skin: No Rash
Neuro: Nonfocal/grossly intact
Laboratory Results
-
Laboratory Results
PT 13.2 Sec (11.4-14.6) 07/27/24 11:03
INR 0.97 07/27/24 11:03
APTT 31.5 Sec (23.4-35.0) 07/27/24 11:03
Total Bilirubin 0.5 mg/dl (0.2-1.3) 07/27/24 11:03
AST 24 U/L (14-36) 07/27/24 11:03
ALT < 10 U/L (0-35) 07/27/24 11:03
Alkaline Phosphatase 119 U/L (38-126) 07/27/24 11:03
Data Reviewed
-
Lab Data: Labs Reviewed by me
Old Records: Reviewed
Impression/Plan
-
IMPRESSION:
PLAN:
# Diverticular stricture status post Hathaway's procedure previously, Hathaway's reversal today
-NPO
-Managed by colorectal surgery
# Inability to extubate due to residual anesthetic effects
-patient given sugammadex to reverse rocuronium
-Patient not spontaneously breathing by anesthesiologist and extubation not attempted
-Check chest x-ray and ABG
-Behavioral Sciences Department Chair consulted
-Patient currently hypotensive with blood pressure 80s systolic, normosol to be switched to IV fluids to maintain MAP greater than 65
-Patient currently not on sedation and due to hypotension Precedex to be started
-Patient with Marshall catheter
Essential hypertension
-Hold losartan
Hyperlipidemia
-Continue statin
Parkinson's disease
-Continue carbidopa-levodopa
Lumbar spinal stenosis
Anxiety
Chronic anemia
-CBC pending
Full code
DVT prophylaxis�heparin
N.p.o.
--- NOTE | 2024-08-06 19:35 | SUR.PHASEI ---
1900 - transfer to ICCU - moved to ICCU bed. Hand off at bedside.patient now has slight movement of arms. does not respond to voice, no eye movement. abdomen unchanged - dressing dry. Crepitus remains throughout trunk, neck and arms. lab results
given to [facility]U FISH LIVER SORTER .
[2024-08-06] MEDS: SINEMET 25-100 TUBE (19:37)
[2024-08-06] MEDS: TORADOL 10 MG IV ×2 (19:37→23:55)
[2024-08-06] MEDS: SODIUM BICARBONATE 50 MEQ IV (19:37)
[2024-08-06] MEDS: PRECEDEX 100 IV (19:38)
[2024-08-06] MEDS: TYLENOL PO ×2 (19:52→23:15)
[2024-08-06] MEDS: NORMOSOL-R/PLASMALYTE-A 1000 IV (19:52)
[2024-08-06 20:47] LABS: O2 Saturation % 99.3 % (94-98); PCO2 38 mmHg (32-35); PO2 116 mmHg (83-108); pH 7.37 (7.35-7.45)
--- NOTE | 2024-08-06 21:55 | PTCARENOTE ---
Gareth tam off, patient reassessed, eyes open to name. Nods head, simple commands followed
[2024-08-06] MEDS: DILAUDID 0.5 MG IV (21:58)
[2024-08-07] VITALS (27 sets, daily range): BP systolic 97–129; BP diastolic 42–82; PULSE 62; BMI 27.0
[2024-08-07 00:32] LABS: Blood Urea Nitrogen 22 mg/dl (7-17); Calcium 7.3 mg/dl (8.4-10.2); Carbon Dioxide 21 mmol/L (22-30); Chloride 105 mmol/L (98-107); Estimated Creatinine Clearance 42 ml/min; Glucose 193 mg/dl (70-99); Sodium 142 mmol/L (135-145); eGFR > 60.00
[2024-08-07 00:43] LABS: Hematocrit 28.5 % (37.0-47.0); Hemoglobin 9.6 g/dL (12.0-16.0); Mean Corp Hgb Conc. 33.7 g/dL (33.0-37.0); Mean Corpuscular Hgb 27.7 pg (27.0-31.0); Mean Corpuscular Volume 82.1 fL (81.0-99.0); Mean Platelet Volume 10.3 fL (7.4-10.4); Platelet Count 143 10^3/uL (130-400); Red Blood Cell Count 3.47 10^6/uL (4.20-5.40); Red Cell Dist. Width 13.7 % (11.5-14.5); White Blood Cell Count 15.8 10^3/uL (4.8-10.8)
--- NOTE | 2024-08-07 00:50 | PTCARENOTE ---
Patient reassessed, appears comfortable. Turned and repositioned. labs sent
[2024-08-07] MEDS: LR 1000 IV ×3 (01:27→09:25)
[2024-08-07] MEDS: TYLENOL PO ×5 (03:00→20:57)
--- NOTE | 2024-08-07 03:49 | PTCARENOTE ---
Patient reassessed, denies pain at this time. Precedex gtt titrated for RASS. Turned and repositioned
[2024-08-07 05:14] LABS: % Basophils 0.1 % (0-2); % Immature Granulocytes 0.4 % (0-0.5); % Lymphocytes 3.3 % (20.5-51.1); % Monocytes 9.9 % (1.7-9.3); % Neutrophils 86.3 % (42.2-75.2); Absolute Immature Granulocytes 0.1 10^3/uL (0-0.05); Absolute Lymphocytes 0.5 10^3/uL (1.2-3.4); Absolute Monocytes 1.6 10^3/uL (0.1-0.6); Absolute Neutrophils 13.8 10^3/uL (1.4-6.5); Hematocrit 30.4 % (37.0-47.0); Mean Corp Hgb Conc. 32.9 g/dL (33.0-37.0); Mean Corpuscular Hgb 26.9 pg (27.0-31.0); Mean Corpuscular Volume 81.7 fL (81.0-99.0); Mean Platelet Volume 10.2 fL (7.4-10.4); Nucleated Red Blood Cells % 0 %; Platelet Count 143 10^3/uL (130-400); Red Blood Cell Count 3.72 10^6/uL (4.20-5.40); Red Cell Dist. Width 13.9 % (11.5-14.5)
[2024-08-07] MEDS: TORADOL 10 MG IV ×2 (05:18→11:19)
[2024-08-07 05:49] LABS: Blood Urea Nitrogen 24 mg/dl (7-17); Carbon Dioxide 23 mmol/L (22-30); Chloride 104 mmol/L (98-107); Estimated Creatinine Clearance 42 ml/min; Glucose 159 mg/dl (70-99); Magnesium 2.2 mg/dl (1.6-2.3); Potassium 4.3 mmol/L (3.5-5.1); Sodium 138 mmol/L (135-145); eGFR > 60.00
[2024-08-07] MEDS: DILAUDID 0.5 MG IV (06:43)
--- NOTE | 2024-08-07 07:10 | CON.INTV ---
Consultation
Consultation Request
Date/Time Consultation Requested: 08/07/24
Date/Time Consultation Performed: 08/07/24
Performing Provider: Samia
Reason for Consultation: Postop
Medical History
-
History of Present Illness:
Patient is an 83-year-old female with previous history of hypertension, Parkinson's disease, diverticulitis status post ex lap and Hathaway's procedure on 04/13/2024. She presents for elective ostomy reversal which resulted in a prolonged procedure
including lysis of adhesions, repair of cecal injury x 2 for total OR case of 10 hours. Due to prolonged case, she was received on mechanical ventilation and transferred to ICU.
Past Medical History
Past Medical History: Other (see other list below)
Social History
Tobacco: Non-smoker
Alcohol: None
Drug: None
Allergies / Home Medications
Allergies
Allergy/AdvReac Type Severity Reaction Status Date / Time
No Known Allergies Allergy Verified 08/06/24 06:29
Home Medications
�Medication �Instructions �Recorded �Confirmed �Last Taken �Type
atorvastatin 10 mg tablet 10 mg PO DAILY High Cholesterol 04/08/24 08/06/24 08/05/24 09:30 History
carbidopa 25 mg-levodopa 100 mg 1 tab PO TID@0800,1330,1930 04/08/24 08/06/24 08/05/24 19:30 History
tablet Neurological Condition
cholecalciferol (vitamin D3) 25 25 mcg PO DAILY Supplement 04/08/24 08/06/24 1 Week Ago History
mcg (1,000 unit) tablet (Vitamin ~07/30/24
D3)
cyanocobalamin (vitamin B-12) 1,000 mcg PO DAILY Supplement 04/08/24 08/06/24 1 Week Ago History
1,000 mcg tablet ~07/30/24
ferrous sulfate 325 mg (65 mg 325 mg PO MO Supplement 04/08/24 08/06/24 08/02/24 History
iron) tablet
losartan 50 mg tablet 50 mg PO DAILY Blood Pressure 04/08/24 08/06/24 08/05/24 09:30 History
acetaminophen 325 mg tablet 650 mg (2 x 325 mg) PO Q4HPRN PRN 04/20/24 08/06/24 08/05/24 23:00 Rx
mild pain/ fever>100.5F #0 tabs
metronidazole 500 mg tablet 500 mg PO PRE OP 07/30/24 08/06/24 08/05/24 22:00 History
neomycin 500 mg tablet 1 g PO PRE OP 07/30/24 08/06/24 08/05/24 22:00 History
polyethylene glycol 3350 17 gram 17 g PO DAILY 07/30/24 08/06/24 3 Days Ago History
oral powder packet (Miralax) ~08/03/24
sodium sul 1.479 gram-potas ch 0 tab PO PRE OP 07/30/24 08/06/24 08/05/24 22:00 History
0.188 gram-magnes sul 0.225 gram
tablet (Sutab)
Review of Systems
-
History Source: Patient
All other systems: Negative unless noted
Vitals / Labs / Diagnostic Testing
Vital Signs
Temp Pulse Resp BP Pulse Ox
96.2 F L 65 14 106/52 99
08/07/24 03:43 08/07/24 05:00 08/07/24 05:00 08/07/24 05:00 08/07/24 05:15
Lab Data
08/07/24 04:52
08/07/24 04:52
Laboratory Results
08/06/24
20:30
pH 7.37
pCO2 38 H
pO2 116 H
HCO3 22.0
O2 Delivery Level
Diagnostic Testing:
Physical Exam
-
HEENT: Normocephalic, Anicteric and Moist Mucous Membranes
Cardiovascular: S1/S2 and Regular Rhythm
Respiratory: Clear and Non-Labored Respirations
GI: Soft, Non Distended and Non Tender
Neurology: Awake, Alert, Oriented and No Motor Deficits
Skin: Warm, Dry and Good Color
General: Comfortable and Other (NAD)
Assessment
-
Patient is an 83-year-old female with previous history of hypertension, Parkinson's disease, diverticulitis status post ex lap and Hathaway's procedure on 04/13/2024. She presents for elective ostomy reversal which resulted in a prolonged procedure
including lysis of adhesions, repair of cecal injury x 2 for total OR case of 10 hours. Due to prolonged case, she was received on mechanical ventilation and transferred to ICU.
History of colostomy s/p elective robotic colostomy reversal, lysis of adhesions greater than 3 hours, flexible sigmoidoscopy, repair of cecal injury x 2, laparoscopic tap block 08/06/24
Perioperative mechanical ventilation
Diverticulitis status post ex lap and Hathaway's procedure 04/2024
Subcutaneous emphysema
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
Hypertension
Reflux esophagitis
Hyperlipidemia
Otitis media status post myringotomy 2012
Lumbar stenosis
Parkinson's disease
Skin cancer
Plan
S/p reversal/DEEP/cecal repair POD #1
No reported intra-op issues, minimal EBL
Monitor overnight in ICU
Further postop care per team
Intubated/sedated, initiate SAT when able
Pain/sedation: off drips
RASS goals: 0
Hemodynamically stable, not requiring pressors.
Hold home meds for now, resume when able post extubation
Monitor on telemetry
Intubated for procedure, SBT trial with plan to extubate
ABG(s) reviewed
CXR with no obvious opacities/infiltrates, ETT in good position
Extubate per protocol
Maintain supplement oxygen as needed
Can add nebulizers if needed
Encouraged incentive spirometry, OOB/ambulation/early mobility
Subq emphysema noted, monitor for now
Advance diet as tolerated following extubation
GI prophylaxis if indicated for mechanical ventilation >48 hours
Aspiration precautions
Speech eval if needed
Hb/platelets postoperatively stable, trend CBC for now
Can transfuse if indicated for Hb <7, plt <50 in surgical patients
DVT prophylaxis including SCDs
Creat at baseline, no history of renal disease
Void trials, follow urine output, critical I/Os
Replete electrolytes as needed
No signs/symptoms suspicious for infectious etiology at this time
Observe off antibiotics for now
Follow fever trend, WBC count
We will follow, if doing well, can likely transfer to floors later today.
Diagnostic Data
Chest X-Ray: 08/06/24- MARKED WIDESPREAD BILATERAL SUBCUTANEOUS EMPHYSEMA, LEFT GREATER THAN RIGHT.
07/27/24- No evidence of active cardiopulmonary disease.
CT Scan: AP 04/08/24- As described, CT findings compatible with a left pelvic peridiverticular abscess. This abscess extends to the left superior bladder wall and there is air within the anterior bladder lumen. Findings are considered suspicious for a
colovesical fistula as a result of diverticulitis. As an alternative, if the patient has been recently catheterized, air could've been introduced into the bladder from catheterization. No evidence of free intraperitoneal air. Moderate to large
amount of stool within the colon proximal to the region of diverticulitis, suggesting constipation/partial colonic obstruction. No significant dilation of small bowel loops. Coronary artery calcifications. Please correlate with symptoms of and risk
factors for coronary artery disease, with further workup as clinically appropriate.
Aortic valvular calcifications. Please correlate with any clinical signs or symptoms that would suggest significant aortic stenosis. Cholelithiasis. No CT findings to suggest acute cholecystitis.
8 mm calcification within the left anterior uterus, likely a small calcified fibroid. Bony degenerative changes as described.
Echo: 05/19/23- Normal left ventricular size, wall thickness and systolic function. No regional wall motion abnormalities are seen. Estimated ejection fraction is 55-60%. Normal diastolic function. Mitral valve opens normally. Thickened mitral valve
leaflets. Mitral annular calcification. Trace mitral regurgitation. Trileaflet aortic valve. Aortic sclerosis without stenosis. No aortic regurgitation is seen. Since echocardiogram March 2017, there is no significant change.
PFT's:
Reports and relevant images were personally reviewed.
-----
Critical care time 65 mins -- this includes review of history, physical exam, medications, hemodynamic/ventilator parameters, laboratory data, imaging and discussion with house staff, pharmacy, respiratory therapy, animal rides manager, and nursing.
[2024-08-07] MEDS: ENTEREG PO (08:00)
[2024-08-07] MEDS: PRECEDEX 100 IV (08:00)
[2024-08-07] MEDS: LIPITOR PO (08:00)
[2024-08-07] MEDS: SINEMET 25-100 TUBE ×2 (08:00→12:14)
[2024-08-07] MEDS: PROTONIX IV 40 MG IV (08:01)
[2024-08-07] MEDS: HEPARIN 5000 UNITS SC ×2 (08:02→20:44)
[2024-08-07] MEDS: NSS (PRESERVATIVE FREE) 10 ML IV (08:02)
--- NOTE | 2024-08-07 08:53 | W.PN.GS2 ---
Today's Communication / Plan
-
`
Assessment / Plan
-
Assessment: 83-year-old female postoperative day 1 status post RAL colostomy reversal, lysis of adhesions, repair cecal injury x 2
AFVSS
Stable overnight initially postop.
Remains intubated
Plan: Wean to extubation today per pulmonary/electric dolly operator
Appreciate hospitalist and electric dolly operator assistance with immediate postoperative care
Continue n.p.o. pending extubation
Routine postoperative supportive care
Heparin subcu for VTE prophylaxis
Protonix for GI prophylaxis
Subjective Data
-
Date of Service: August 07, 2024
Patient seen and examined.
Nursing at bedside. Discussed with electric dolly operator.
Patient remains intubated but alert and interactive.
Objective Data
-
Intake and Output
08/06/24 08/07/24 08/08/24
06:59 06:59 06:59
Intake Total 1772.9 / 1906.0 266.2 / 266.2
Output Total 1300 / 1300 225 / 225
Balance 472.9 / 606.0 41.2 / 41.2
Intake:
IV fluids (Total) 1772.9 / 1906.0 266.2 / 266.2
Normosol-R/Plasmalyte-A 1,000 1250 / 1375 250 / 250
ml @ 125 mls/hr IV .Q8H [facility] Rx#
:[id number]
Precddex 72.9 / 81.0 16.2 / 16.2
normosol 450 / 450
Output:
Urine, Marshall 500 / 500 225 / 225
Urine, Voided 800 / 800
Vital Signs
Temp Pulse Resp BP Pulse Ox
96.4 F L 71 12 112/55 99
08/07/24 07:50 08/07/24 08:41 08/07/24 08:41 08/07/24 07:00 08/07/24 08:41
Lab Results
08/07/24 04:52
08/07/24 04:52
Calcium 8.0 mg/dl (8.4-10.2) L 08/07/24 04:52
Magnesium 2.2 mg/dl (1.6-2.3) 08/07/24 04:52
Total Bilirubin 0.5 mg/dl (0.2-1.3) 07/27/24 11:03
AST 24 U/L (14-36) 07/27/24 11:03
ALT < 10 U/L (0-35) 07/27/24 11:03
Alkaline Phosphatase 119 U/L (38-126) 07/27/24 11:03
Total Protein 6.8 g/dl (6.3-8.2) 07/27/24 11:03
Albumin 4.1 g/dl (3.5-5.0) 07/27/24 11:03
Physical Exam
-
NAD, following commands
Intubated but not sedated
ABD: Soft, nondistended, mild tenderness palpation generalized. Incisions with glue dressings and dressing at old ostomy site clean
: Marshall catheter and stent in place.
--- NOTE | 2024-08-07 09:30 | W.PN.HOSP.TC ---
Today's Communication/Plan
-
pending extubation
CT chest
advance diet as per Colorectal SX
Assessment / Plan
Assessment / Plan
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
breathing. In AM after the Sx patient is wide awake, and planned for extubation as seemingly passing SBT.
A/P
#Acute hypoxic respiratory failure postOP 2/2 prolonged anesthesia
mgmt as per Pulm
Awake and alert, following commands -no indication for CT head
#S/P Hathaway reversal with Hx of diverticulosis
ColoRectal Sx mgmt
Advance diet as tolerated
#Subcutaneous emphysema on XR
no signs on clinical exam
reasonable to have CT chest
#Reactive leukocytosis
improving off Abx
monitor
#Chronic anemia
follow with PCP
#Essential HTN
#PArkinsons
#Lumbar spine stenosis
#Anxiety
cont home meds when able.
BP meds held due to post-anesthesia hypotension
DVT ppx hep
Full code
I have spent at least 59min reviewing chart, test results, communication with family and direct patient care
Anticipated Discharge: 24 - 48 hours
Subjective/Interval History
-
Date of Service: August 07, 2024
Objective Data
-
Labs:
Laboratory Results
08/06/24 08/07/24
23:54 04:52
WBC 15.8 H 16.0 H
Hgb 9.6 L 10.0 L
Hct 28.5 L 30.4 L
Plt Count 143 143
Sodium 142 138
Potassium 4.0 4.3
Chloride 105 104
Carbon Dioxide 21 L 23
BUN 22 H 24 H
Creatinine 0.8 0.8
Glucose 193 H 159 H
Calcium 7.3 L 8.0 L
Vital Signs:
Vital Signs
Temp Pulse Resp BP Pulse Ox
96.4 F L 81 14 115/68 99
08/07/24 07:50 08/07/24 09:00 08/07/24 09:00 08/07/24 08:00 08/07/24 09:00
I&O
08/06/24 08/07/24 08/08/24
06:59 06:59 06:59
Intake Total 1772.9 / 1906.0 391.2 / 391.2
Output Total 1300 / 1300 225 / 225
Balance 472.9 / 606.0 166.2 / 166.2
Review of Systems
-
Unable to obtain full review of systems at this time due to: Patient Intubation
Physical Exam
-
General: No Apparent Distress and Intubated
HEENT: Moist Mucous Membranes
Respiratory: Clear to Auscultation
Cardiac: Regular Rhythm
GI: Soft, Nontender, Nondistended and Normal Bowel Sounds
Genito-urinary: No Costovertebral Tender
Musculoskeletal: No Clubbing, No Cyanosis and No Edema
Skin: Warm
Neuro: Awake and Alert
Psych: Calm
--- NOTE | 2024-08-07 10:18 | PTCARENOTE ---
Pt AAOx3. Extubated. SpO2 97-98% on 6L NC. Denies pain at this time. Sinus rhythm. Daughter at bedside.
--- NOTE | 2024-08-07 10:20 | RESPNOTE ---
pt extubated at 1005 to 6lpm of nasal cannula. sats of 97-98%. daughter at bedside
--- NOTE | 2024-08-07 13:00 | PTCARENOTE ---
Pt AAOx3. Woke up disoriented after a nap but easily reoriented. One assist OOB to chair. Chair alarm on. Daughter at bedside.
Sinus rhythm. Generalized +1 edema.
Oxygen weaned to 2L NC. SpO2 96-99%
Denies pain or flatus.
Mary Kay urine via jewell.
All other assessments unchanged.
--- NOTE | 2024-08-07 14:54 | CM ---
CM following re: discharge planning.
Reviewed pt's chart, met with pt and pt's daughter at bedside.
Pt is an 83 year old female, admitted with primary dx of postoperative day 1 status post RAL colostomy reversal, lysis of adhesions, repair cecal injury x 2
Pt reports she lives alone in a 2SH, 3 steps to enter, has 2 cats and 2 daughters. Pt reports she ambulates with a walker, has a walker on each floor, known to [facility] and was at [facility] in the past. Pt stated she would prefer [facility] if
recommended SNF level of care.
PT and OT will evaluate the pt to determine a level of care at discharge.
PCP: Barbie Lay
Pharmacy: [facility]
D/C plan: [facility] if recommended by PT/OT.
CM will follow with discharge plan updates as hospitalization progresses
--- NOTE | 2024-08-07 14:55 | W.PN.UPDATE ---
Update Note
Progress Note Update
as discussed with surgery - subcutaneous emphysema expected after such prolonged surgery. will monitor. no pneumothorax seen.
[2024-08-07] MEDS: SINEMET 25-100 1 TABLET TUBE ×2 (15:42→20:44)
--- NOTE | 2024-08-07 16:54 | PTCARENOTE ---
Pt remains OOB in chair. Denies pain. All other assessments unchange.
--- NOTE | 2024-08-07 20:00 | PTCARENOTE ---
Received pt resting in bed, AAOx3, without complaints. BRADLEY but weak. SR on tele. HR 80s. BP 110-120s/50s. + pulses. +1 gen anasarca, crepitus noted. TEDs and SCDs maintained. Afebrile. On 2L NC. Spo2 98%. Lungs diminished throughout. Hypoactive
bowel sounds x4, no flatus per patient. NPO except meds and chips. Marshall cath with ureteral stents- draining josey urine. See I&O. 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 L abd with dsg c/d/i. R FA #20 with D5LR @ 70ml/hr. Monitoring
[2024-08-07] MEDS: TORADOL IV (20:40)
[2024-08-07] MEDS: D5LR 1000 IV (20:45)
[2024-08-07] MEDS: ENTEREG 12 MG PO (20:45)
[2024-08-08] VITALS (19 sets, daily range): BP systolic 103–146; BP diastolic 52–75; PULSE 80; O2SAT 96–98; BMI 26.8
--- NOTE | 2024-08-08 | PTCARENOTE ---
Pt reassessed. On room air, spo2 95%. Pt c/o mild pain with coughing. Tylenol and toradol given as scheduled. Encouraged pt to sleep.
[2024-08-08] MEDS: TORADOL 10 MG IV ×5 (00:25→23:59)
[2024-08-08] MEDS: TYLENOL 650 MG PO ×6 (00:26→23:59)
--- NOTE | 2024-08-08 04:43 | PTCARENOTE ---
Pt reassessed. Reports still no flatus. Marshall draining adequate urine. Stable on room air. No pain reported. AM labs drawn
[2024-08-08 06:19] LABS: ALT (SGPT) < 10 U/L (0-35); AST (SGOT) 40 U/L (14-36); Albumin 2.8 g/dl (3.5-5.0); Alkaline Phosphatase 77 U/L (38-126); Blood Urea Nitrogen 20 mg/dl (7-17); Calcium 8.1 mg/dl (8.4-10.2); Carbon Dioxide 28 mmol/L (22-30); Chloride 108 mmol/L (98-107); Estimated Creatinine Clearance 42 ml/min; Glucose 110 mg/dl (70-99); Sodium 140 mmol/L (135-145); Total Bilirubin 0.4 mg/dl (0.2-1.3); eGFR > 60.00
[2024-08-08 06:54] LABS: % Basophils 0.2 % (0-2); % Immature Granulocytes 0.5 % (0-0.5); % Lymphocytes 8.6 % (20.5-51.1); % Monocytes 9.2 % (1.7-9.3); % Neutrophils 81.5 % (42.2-75.2); Absolute Immature Granulocytes 0.1 10^3/uL (0-0.05); Absolute Lymphocytes 1.1 10^3/uL (1.2-3.4); Absolute Monocytes 1.2 10^3/uL (0.1-0.6); Absolute Neutrophils 10.8 10^3/uL (1.4-6.5); Hematocrit 26.3 % (37.0-47.0); Hemoglobin 8.7 g/dL (12.0-16.0); Mean Corp Hgb Conc. 33.1 g/dL (33.0-37.0); Mean Corpuscular Hgb 27.6 pg (27.0-31.0); Mean Corpuscular Volume 83.5 fL (81.0-99.0); Mean Platelet Volume 10.7 fL (7.4-10.4); Nucleated Red Blood Cells % 0 %; Platelet Count 132 10^3/uL (130-400); Red Blood Cell Count 3.15 10^6/uL (4.20-5.40); Red Cell Dist. Width 14.3 % (11.5-14.5); White Blood Cell Count 13.2 10^3/uL (4.8-10.8)
--- NOTE | 2024-08-08 07:28 | W.PN.INTV ---
Today's Communication / Plan
Recommendations
Extubated and doing well, no issues overnight
Off pressors
Await diet per surgery
PT/OT, OOB
Transfer to floors, we will sign off upon transfer
Assessment
-
Patient is an 83-year-old female with previous history of hypertension, Parkinson's disease, diverticulitis status post ex lap and Hathaway's procedure on 04/13/2024. She presents for elective ostomy reversal which resulted in a prolonged procedure
including lysis of adhesions, repair of cecal injury x 2 for total OR case of 10 hours. Due to prolonged case, she was received on mechanical ventilation and transferred to ICU.
History of colostomy s/p elective robotic colostomy reversal, lysis of adhesions greater than 3 hours, flexible sigmoidoscopy, repair of cecal injury x 2, laparoscopic tap block 08/06/24
Perioperative mechanical ventilation
Diverticulitis status post ex lap and Hathaway's procedure 04/2024
Subcutaneous emphysema
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
Hypertension
Reflux esophagitis
Hyperlipidemia
Otitis media status post myringotomy 2012
Lumbar stenosis
Parkinson's disease
Skin cancer
Plan
S/p reversal/DEEP/cecal repair POD #1
No reported intra-op issues, minimal EBL
Monitor overnight in ICU
Further postop care per team
Pain/sedation: off drips
RASS goals: 0
Hemodynamically stable, not requiring pressors.
Hold home meds for now, resume when able post extubation
Monitor on telemetry
Intubated for procedure, extubated 08/07, doing well
ABG(s) reviewed
CXR with no obvious opacities/infiltrates
Maintain supplement oxygen as needed
Can add nebulizers if needed
Encouraged incentive spirometry, OOB/ambulation/early mobility
Subq emphysema noted, monitor for now
Advance diet as tolerated following extubation
GI prophylaxis if indicated for mechanical ventilation >48 hours
Aspiration precautions
Speech eval if needed
Hb/platelets postoperatively stable, trend CBC for now
Can transfuse if indicated for Hb <7, plt <50 in surgical patients
DVT prophylaxis including SCDs
Creat at baseline, no history of renal disease
Void trials, follow urine output, critical I/Os
Replete electrolytes as needed
No signs/symptoms suspicious for infectious etiology at this time
Observe off antibiotics for now
Follow fever trend, WBC count
Diagnostic Data
Chest X-Ray: 08/06/24- MARKED WIDESPREAD BILATERAL SUBCUTANEOUS EMPHYSEMA, LEFT GREATER THAN RIGHT.
07/27/24- No evidence of active cardiopulmonary disease.
CT Scan: AP 04/08/24- As described, CT findings compatible with a left pelvic peridiverticular abscess. This abscess extends to the left superior bladder wall and there is air within the anterior bladder lumen. Findings are considered suspicious for a
colovesical fistula as a result of diverticulitis. As an alternative, if the patient has been recently catheterized, air could've been introduced into the bladder from catheterization. No evidence of free intraperitoneal air. Moderate to large
amount of stool within the colon proximal to the region of diverticulitis, suggesting constipation/partial colonic obstruction. No significant dilation of small bowel loops. Coronary artery calcifications. Please correlate with symptoms of and risk
factors for coronary artery disease, with further workup as clinically appropriate.
Aortic valvular calcifications. Please correlate with any clinical signs or symptoms that would suggest significant aortic stenosis. Cholelithiasis. No CT findings to suggest acute cholecystitis.
8 mm calcification within the left anterior uterus, likely a small calcified fibroid. Bony degenerative changes as described.
Echo: 05/19/23- Normal left ventricular size, wall thickness and systolic function. No regional wall motion abnormalities are seen. Estimated ejection fraction is 55-60%. Normal diastolic function. Mitral valve opens normally. Thickened mitral valve
leaflets. Mitral annular calcification. Trace mitral regurgitation. Trileaflet aortic valve. Aortic sclerosis without stenosis. No aortic regurgitation is seen. Since echocardiogram March 2017, there is no significant change.
PFT's:
Reports and relevant images were personally reviewed.
-----
Critical care time 35 mins -- this includes review of history, physical exam, medications, hemodynamic/ventilator parameters, laboratory data, imaging and discussion with house staff, pharmacy, respiratory therapy, paper inspector, and nursing.
Subjective Dataa
Subjective Data
Date of Service:
Date of Service: August 08, 2024
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
Subjective:
No acute events ON, remains stable on RA
Off pressors
Tolerated extubation yesterday
Objective Data
Data Reviewed
Vital Signs / I&O / Oxygen:
Vital Signs
Temp Pulse Resp BP Pulse Ox
98.5 F 85 8 103/53 92
08/08/24 04:42 08/08/24 03:00 08/08/24 03:00 08/08/24 03:00 08/08/24 03:00
Intake and Output
08/07/24 08/08/24 08/09/24
06:59 06:59 06:59
Intake Total 1772.9 / 1906.0 2461.2 / 2461.2
Output Total 1300 / 1300 1775 / 1775
Balance 472.9 / 606.0 686.2 / 686.2
SaO2 [A/C] 997
SaO2 92
Nasal Cannula flow liters per 2
minute
Physical Exam
General: Comfortable and Other (NAD)
HEENT: Normocephalic, Anicteric and Moist Mucous Membranes
Cardiovascular: S1-S2 and Regular Rhythm
Respiratory: Clear and Non-Labored Respirations
GI: Soft, Non Distended and Non Tender
Neurology: Awake, Alert, Oriented and No Motor Deficits
Skin: Warm, Dry and Good Color
Labs/Micro/Reports
Lab Data
08/08/24 04:37
08/08/24 04:37
[2024-08-08] MEDS: PROTONIX IV 40 MG IV (07:30)
[2024-08-08] MEDS: NSS (PRESERVATIVE FREE) 10 ML IV (07:30)
[2024-08-08] MEDS: HEPARIN 5000 UNITS SC ×2 (07:31→20:08)
[2024-08-08] MEDS: ENTEREG 12 MG PO ×2 (07:32→20:08)
[2024-08-08] MEDS: LIPITOR 10 MG PO (07:32)
[2024-08-08] MEDS: SINEMET 25-100 1 TABLET TUBE ×3 (07:42→20:51)
--- NOTE | 2024-08-08 07:45 | PTCARENOTE ---
Received patient from shift supervisor rn. Patient is AAOx4, awake, pleasant, conversant. Baseline parkinson's but no tremors, states she has shuffling gait with ambulation. She is on room air, 93%, is sinus rhythm on the monitor, normotensive. Patient
is NPO, jewell draining yellow urine. IVF infusing through right forearm. Patient to get OOB this morning, will discontinue jewell. Will review orders, call hess within reach.
--- NOTE | 2024-08-08 09:17 | W.PN.GS2 ---
Today's Communication / Plan
-
`
Assessment / Plan
-
Assessment: 83-year-old female POD #2 status post RAL colostomy reversal, lysis of adhesions, repair cecal injury x 2
AFVSS
Extubated and doing well postoperatively
Hemoglobin 8.7 -reflective of acute blood loss anemia from surgical procedure and preop chronic anemia starting with hemoglobin 11.4. No signs of active blood loss
Plan: Discussed with hospitalist service and nursing.
Stable for transfer to [facility] floor bed
Would maintain on sips of clears and ice chips until more robust sign of postoperative GI recovery given length of operative procedure, lysis of adhesions and cecal repair
Continue current multimodal analgesic regiment
IV fluids
Entereg
Heparin subcu for VTE prophylaxis
Protonix for GI prophylaxis
Subjective Data
-
Date of Service: August 08, 2024
Patient seen and examined. Extubated yesterday.
Reports moderate postoperative incisional pains. Adequately controlled.
No nausea. Not much appetite yet.
No flatus nor bowel movements
Objective Data
-
Intake and Output
08/07/24 08/08/24 08/09/24
06:59 06:59 06:59
Intake Total 1772.9 / 1906.0 2461.2 / 2531.2 70 / 70
Output Total 1300 / 1300 177 / 2050 275 / 275
Balance 472.9 / 606.0 686.2 / 481.2 -205 / -205
Intake:
Oral fluids 120 / 120
IV fluids (Total) 1772.9 / 1906.0 2341.2 / 2411.2 70 / 70
D5lr 1,000 ml @ 70 mls/hr IV . 700 / 770 70 / 70
[id number] [facility] Rx#:[id number]
Normosol-R/Plasmalyte-A 1,000 1250 / 1375 1625 / 1625
ml @ 125 mls/hr IV .Q8H [facility] Rx#
:[id number]
Precddex 72.9 / 81.0 16.2 / 16.2
normosol 450 / 450
Output:
Urine, Marshall 500 / 500 1775 / 2050 275 / 275
Urine, Voided 800 / 800
Vital Signs
Temp Pulse Resp BP Pulse Ox
98.9 F 85 8 103/53 92
08/08/24 07:00 08/08/24 03:00 08/08/24 03:00 08/08/24 03:00 08/08/24 03:00
Lab Results
08/08/24 04:37
08/08/24 04:37
Calcium 8.1 mg/dl (8.4-10.2) L 08/08/24 04:37
Magnesium 2.2 mg/dl (1.6-2.3) 08/07/24 04:52
Total Bilirubin 0.4 mg/dl (0.2-1.3) 08/08/24 04:37
AST 40 U/L (14-36) H 08/08/24 04:37
ALT < 10 U/L (0-35) 08/08/24 04:37
Alkaline Phosphatase 77 U/L (38-126) 08/08/24 04:37
Total Protein 5.0 g/dl (6.3-8.2) L 08/08/24 04:37
Albumin 2.8 g/dl (3.5-5.0) L 08/08/24 04:37
Physical Exam
-
NAD AAOx3
ABD: Soft, mildly distended, tenderness to palpation at surgical sites only.
Robotic sites with glue dressings
Left sided old ostomy dressing replaced -no significant bleeding or oozing
[2024-08-08] MEDS: D5LR 1000 IV (10:06)
--- NOTE | 2024-08-08 10:18 | W.PN.HOSP.TC ---
Addendum entered and electronically signed by Harjinder Arroyo MD 08/08/24 10:58:
Correction: no known metastatic disease
Original Note:
Today's Communication/Plan
-
diet as per surgical service
remove jewell and ELDER Marquez RN aware
move to med-surge
Assessment / Plan
Assessment / Plan
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
breathing. Extubated next day. Pending return of bowel function
A/P
#Acute hypoxic respiratory failure postOP 2/2 prolonged anesthesia
mgmt as per Pulm
Awake and alert, following commands -no indication for CT head
#S/P Hathaway reversal with Hx of diverticulosis
ColoRectal Sx mgmt
Advance diet as tolerated
#Subcutaneous emphysema on XR
no signs on clinical exam
reasonable to have CT chest
#Reactive leukocytosis
improving off Abx
monitor
#Chronic anemia
follow with PCP
#Essential HTN
#Parkinson
#Lumbar spine stenosis
#Anxiety
cont home meds when able.
BP meds held due to post-anesthesia hypotension
#Minimally elevated AST
2/2 Sx
monitor
DVT ppx hep
Full code
I have spent at least 39min reviewing chart, test results, communication with family and direct patient care
Anticipated Discharge: > 48 hours
Subjective/Interval History
-
Date of Service: August 08, 2024
Objective Data
-
Labs:
Laboratory Results
08/08/24
04:37
WBC 13.2 H
Hgb 8.7 L
Hct 26.3 L
Plt Count 132
Sodium 140
Potassium 4.0
Chloride 108 H
Carbon Dioxide 28
BUN 20 H
Creatinine 0.9
Glucose 110 H
Calcium 8.1 L
Total Bilirubin 0.4
AST 40 H
ALT < 10
Alkaline Phosphatase 77
Vital Signs:
Vital Signs
Temp Pulse Resp BP Pulse Ox
98.9 F 84 20 121/70 96
08/08/24 07:00 08/08/24 10:00 08/08/24 10:00 08/08/24 10:00 08/08/24 10:00
I&O
08/07/24 08/08/24 08/09/24
06:59 06:59 06:59
Intake Total 1772.9 / 1906.0 2461.2 / 2531.2 280 / 280
Output Total 1300 / 1300 1775 / 2050 550 / 550
Balance 472.9 / 606.0 686.2 / 481.2 -270 / -270
Review of Systems
-
History Source: Patient
All other systems: Reviewed and negative
Physical Exam
-
General: No Apparent Distress
HEENT: Normocephalic
Respiratory: Clear to Auscultation
Cardiac: Regular Rhythm
GI: Soft, Nontender, Nondistended and Normal Bowel Sounds
Neuro: Awake, Alert, Oriented and AO x 3
Psych: Calm
--- NOTE | 2024-08-08 11:17 | PTCARENOTE ---
Transferred patient to 2114, report given to [place].
--- NOTE | 2024-08-08 11:17 | PTCARENOTE ---
Patient OOB to chair, remains unsteady on feet, assist x2
[2024-08-08] MEDS: TYLENOL PO (12:17)
--- NOTE | 2024-08-08 13:59 | PTCARENOTE ---
transferred patient to [facility]. report given to Kira HI
[2024-08-09] MEDS: D5LR 1000 IV ×2 (00:44→12:34)
[2024-08-09] MEDS: TYLENOL PO (04:33)
[2024-08-09 05:23] LABS: % Basophils 0.3 % (0-2); % Eosinophils 1.3 % (0-6); % Immature Granulocytes 0.5 % (0-0.5); % Monocytes 7.9 % (1.7-9.3); Absolute Eosinophils 0.1 10^3/uL (0-0.7); Absolute Immature Granulocytes 0.1 10^3/uL (0-0.05); Absolute Lymphocytes 1.1 10^3/uL (1.2-3.4); Absolute Monocytes 0.8 10^3/uL (0.1-0.6); Absolute Neutrophils 8.4 10^3/uL (1.4-6.5); Hematocrit 27.7 % (37.0-47.0); Hemoglobin 8.9 g/dL (12.0-16.0); Mean Corp Hgb Conc. 32.1 g/dL (33.0-37.0); Mean Corpuscular Hgb 27.3 pg (27.0-31.0); Mean Platelet Volume 10.5 fL (7.4-10.4); Nucleated Red Blood Cells % 0 %; Platelet Count 131 10^3/uL (130-400); Red Blood Cell Count 3.26 10^6/uL (4.20-5.40); Red Cell Dist. Width 14.3 % (11.5-14.5); White Blood Cell Count 10.5 10^3/uL (4.8-10.8)
[2024-08-09] MEDS: TORADOL 10 MG IV ×3 (05:43→17:07)
[2024-08-09 06:00] LABS: ALT (SGPT) < 10 U/L (0-35); AST (SGOT) 42 U/L (14-36); Albumin 3.1 g/dl (3.5-5.0); Alkaline Phosphatase 88 U/L (38-126); Blood Urea Nitrogen 13 mg/dl (7-17); Calcium 8.4 mg/dl (8.4-10.2); Carbon Dioxide 29 mmol/L (22-30); Chloride 106 mmol/L (98-107); Estimated Creatinine Clearance 42 ml/min; Glucose 99 mg/dl (70-99); Potassium 3.6 mmol/L (3.5-5.1); Sodium 141 mmol/L (135-145); Total Bilirubin 0.7 mg/dl (0.2-1.3); Total Protein 5.3 g/dl (6.3-8.2); eGFR > 60.00
[2024-08-09] MEDS: LIPITOR 10 MG PO (08:11)
[2024-08-09] MEDS: HEPARIN 5000 UNITS SC (08:11)
[2024-08-09] MEDS: TYLENOL 650 MG PO ×4 (08:11→19:55)
[2024-08-09] MEDS: ENTEREG 12 MG PO ×2 (08:11→19:55)
[2024-08-09 08:12] VITALS: BP 173/82
[2024-08-09] MEDS: NSS (PRESERVATIVE FREE) 10 ML IV (08:12)
[2024-08-09] MEDS: PROTONIX IV 40 MG IV (08:12)
[2024-08-09] MEDS: SINEMET 25-100 1 TABLET TUBE ×3 (08:15→19:55)
--- NOTE | 2024-08-09 09:49 | W.PN.CRS1 ---
Today's Communication / Plan
-
clears
change heparin subq to lovenox
Assessment/Plan
-
Assessment: 83-year-old female POD #3 status post RAL colostomy reversal, lysis of adhesions, repair cecal injury x 2
AFVSS
Hemoglobin 8.9 (8.7)
Plan:
-Continue current multimodal analgesic regiment
-IV fluids
-Entereg
-Change heparin subq to lovenox for DVT prophylaxis. TEDS/SDS in place.
-OR pathology pending.
-Protonix for GI prophylaxis
-Advance diet to clears.
-OOB as tolerated.
-Daily dressing changes.
-Appreciate hospitalist.
Subjective Data
Procedure
08/06- robotic colostomy reversal, lysis of adhesions greater than 3 hours, flexible sigmoidoscopy, repair of cecal injury x 2, laparoscopic tap block
Subjective Data
Date of Service: August 09, 2024
Patient states she is feeling well. She tolerated sips of clears without difficulty. She has almost no pain unless she coughs or laughs. She denies nausea or vomiting. She has flatus bt no bowel movements yet. She is urinating without difficulty.
She denies any blood from her rectum.
Objective Data
-
Vital Signs
Temp Pulse Resp BP Pulse Ox
97.9 F 79 16 173/82 97
08/09/24 08:12 08/09/24 08:12 08/09/24 08:12 08/09/24 08:12 08/09/24 08:12
Intake & Output
08/08/24 08/09/24 08/10/24
06:59 06:59 06:59
Intake Total 2461.2 / 2531.2 1800 / 1800
Output Total 1774 / 0 650 / 650
Balance 686.2 / 481.2 1150 / 1150
Intake:
Oral fluids 120 / 120 120 / 120
IV fluids (Total) 2341.2 / 2411.2 1680 / 1680
D5lr 1,000 ml @ 70 mls/hr IV . 700 / 770 490 / 490
[id number] [facility] Rx#:[id number]
Normosol-R/Plasmalyte-A 1,000 1625 / 1625
ml @ 125 mls/hr IV .Q8H [facility] Rx#
:[id number]
Precddex 16.2 / 16.2
Output:
Urine, Marshall 1774 / 2049 650 / 650
Other:
Number of approximated MODERATE 5
amounts of urine
Lab Results
08/09/24 04:49
08/09/24 04:49
Physical Exam
-
General: No Acute Distress and AOx3
Abdomen: Soft, Non Distended, Non Tender and Other (LLQ abdominal wound (old colostomy site) - packing removed, dressing replaced. serous fluid. )
Skin: Warm and Dry
Incision: Clear, Dry, Intact
--- NOTE | 2024-08-09 12:33 | CM ---
Addendum entered by Nilda Lubin 08/09/24 15:27:
Spoke with Liaison for [facility] - will review chart
Original Note:
Chart reviewed
Met with pt at bedside
Discussed PT/OT recs - acute rehab
TT sent to Russ De Los Santos at [facility] to review chart
Discussed SNF options - given list from Medicare.gov to review - prefers [facility] as option
Referral sent in [facility]. No auth needed
Plan - acute rehab vs SNF when bed obtained and medically ready
--- NOTE | 2024-08-09 12:33 | W.PN.HOSP.TC ---
Today's Communication/Plan
-
post-op diet advancement per CRS
Assessment / Plan
Assessment / Plan
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
breathing. Extubated next day. Pending return of bowel function
Assessment:
History of colostomy s/p elective robotic colostomy reversal, lysis of adhesions greater than 3 hours, flexible sigmoidoscopy, repair of cecal injury x 2, laparoscopic tap block 08/06/24
prior hx of Diverticulitis status post ex lap and Hathaway's procedure 04/2024
- CRS following; on clears
- continue dressing changes per CRS
post-op VDRF
Subcutaneous emphysema, post-surgical
- extubated, now on RA on floors
- Encouraged incentive spirometry, OOB/ambulation/early mobility
- appreciate pulm input
reactive leukocytosis, improving
Essential Hypertension
- resume ARB today
Reflux esophagitis
- continue PPI
Hyperlipidemia
- continue statin
Lumbar stenosis
Parkinson's disease
- continue Sinemet
hx of Skin cancer
Chronic anemia
- continue B12, Iron
Minimally elevated AST
- monitor
DVT ppx: Lovenox
Code: Full
Anticipated Discharge: > 48 hours
Subjective/Interval History
-
Date of Service: August 09, 2024
tolerating clears
no pain except with cough, no n/v. + flatus.
Objective Data
-
Labs:
Laboratory Results
08/09/24
04:49
WBC 10.5
Hgb 8.9 L
Hct 27.7 L
Plt Count 131
Sodium 141
Potassium 3.6
Chloride 106
Carbon Dioxide 29
BUN 13
Creatinine 0.9
Glucose 99
Calcium 8.4
Total Bilirubin 0.7
AST 42 H
ALT < 10
Alkaline Phosphatase 88
Vital Signs:
Vital Signs
Temp Pulse Resp BP Pulse Ox
97.9 F 79 16 173/82 97
08/09/24 08:12 08/09/24 08:12 08/09/24 08:12 08/09/24 08:12 08/09/24 08:12
I&O
08/08/24 08/09/24 08/10/24
06:59 06:59 06:59
Intake Total 2461.2 / 2531.2 1800 / 1800
Output Total 1775 / 0 650 / 650
Balance 686.2 / 481.2 1150 / 1150
Physical Exam
-
General: No Apparent Distress
HEENT: Normocephalic and Atraumatic
Respiratory: Negative Wheezes
Cardiac: Regular Rhythm and S1/S2
GI: Soft and Nontender
Neuro: AO x 3
Psych: Calm
Data Reviewed
-
Total Time Spent with Patient (in minutes): 42
Labs: Labs Reviewed by me
[2024-08-09] MEDS: COZAAR 50 MG PO (13:06)
[2024-08-09 15:15] VITALS: BP 148/66
[2024-08-09] MEDS: LOVENOX 40 MG SC (17:07)
[2024-08-09 23:05] VITALS: BP 162/95
[2024-08-10] VITALS (7 sets, daily range): BP systolic 139–160; BP diastolic 78–87; PULSE 78; BMI 25.3
[2024-08-10] MEDS: TYLENOL PO ×2 (00:24→04:00)
[2024-08-10] MEDS: TORADOL 10 MG IV ×5 (00:24→23:04)
[2024-08-10] MEDS: D5LR 1000 IV (03:22)
[2024-08-10 06:37] LABS: Hematocrit 29.4 % (37.0-47.0); Hemoglobin 9.5 g/dL (12.0-16.0); Mean Corp Hgb Conc. 32.3 g/dL (33.0-37.0); Mean Corpuscular Hgb 27.3 pg (27.0-31.0); Mean Corpuscular Volume 84.5 fL (81.0-99.0); Mean Platelet Volume 10.7 fL (7.4-10.4); Platelet Count 148 10^3/uL (130-400); Red Blood Cell Count 3.48 10^6/uL (4.20-5.40); Red Cell Dist. Width 14.3 % (11.5-14.5)
[2024-08-10 07:12] LABS: ALT (SGPT) < 10 U/L (0-35); AST (SGOT) 31 U/L (14-36); Albumin 3.2 g/dl (3.5-5.0); Alkaline Phosphatase 98 U/L (38-126); Blood Urea Nitrogen 9 mg/dl (7-17); Calcium 8.5 mg/dl (8.4-10.2); Carbon Dioxide 29 mmol/L (22-30); Chloride 105 mmol/L (98-107); Estimated Creatinine Clearance 42 ml/min; Glucose 89 mg/dl (70-99); Potassium 3.4 mmol/L (3.5-5.1); Sodium 142 mmol/L (135-145); Total Bilirubin 0.8 mg/dl (0.2-1.3); Total Protein 5.7 g/dl (6.3-8.2); eGFR > 60.00
[2024-08-10] MEDS: COZAAR 50 MG PO (08:55)
[2024-08-10] MEDS: ENTEREG 12 MG PO ×2 (08:55→19:52)
[2024-08-10] MEDS: NSS (PRESERVATIVE FREE) 10 ML IV (08:55)
[2024-08-10] MEDS: VITAMIN D3 (cholecalciferol) 25 MCG PO (08:55)
[2024-08-10] MEDS: PROTONIX IV 40 MG IV (08:55)
[2024-08-10] MEDS: TYLENOL 650 MG PO ×5 (08:55→23:04)
[2024-08-10] MEDS: LIPITOR 10 MG PO (08:55)
[2024-08-10] MEDS: VITAMIN B-12 1000 MCG PO (08:55)
[2024-08-10] MEDS: SINEMET 25-100 1 TABLET TUBE ×3 (08:56→19:52)
--- NOTE | 2024-08-10 10:24 | W.PN.CRS1 ---
Today's Communication / Plan
-
Regular diet
Assessment/Plan
-
Assessment: 83-year-old female POD #3 status post RAL colostomy reversal, lysis of adhesions, repair cecal injury x 2
AFVSS
Hemoglobin 8.9 (8.7)
Plan:
-Continue current multimodal analgesic regiment
-IV fluids, DC when tolerating a diet
-Entereg
-Change heparin subq to lovenox for DVT prophylaxis. TEDS/SDS in place.
-OR pathology pending.
-Protonix for GI prophylaxis
-Advance diet to regular
-OOB as tolerated.
-Daily dressing changes.
-Appreciate hospitalist.
-Dispo: To assisted facility, anticipate tomorrow
Subjective Data
Procedure
08/06- robotic colostomy reversal, lysis of adhesions greater than 3 hours, flexible sigmoidoscopy, repair of cecal injury x 2, laparoscopic tap block
Subjective Data
Date of Service: August 10, 2024
Patient states she feels well today. She has flatus. She denies nausea or vomiting. She is hungry. She has generally no complaints. Her pain is well-controlled.
Objective Data
-
Vital Signs
Temp Pulse Resp BP Pulse Ox
98.0 F 75 18 160/82 95
08/10/24 07:07 08/10/24 07:07 08/10/24 07:07 08/10/24 07:07 08/10/24 08:00
Intake & Output
08/09/24 08/10/24 08/11/24
06:59 06:59 06:59
Intake Total 1800 / 1800 2019
Output Total 650 / 650 375 / 375
Balance 1150 / 1150 1645 / 1645
Intake:
Oral fluids 120 / 120 1180 / 1180
IV fluids (Total) 1680 / 1680 840 / 840
D5lr 1,000 ml @ 70 mls/hr IV . 490 / 490
[id number] [facility] Rx#:[id number]
Output:
Urine, Marshall 650 / 650
Urine, Voided 375 / 375
Other:
Number of approximated MODERATE 5 3
amounts of urine
Number of approximated LARGE 2
amounts of urine
Lab Results
08/10/24 05:16
08/10/24 05:16
Physical Exam
-
General: No Acute Distress and AOx3
Abdomen: Soft, Non Distended, Non Tender and Other (Left lower quadrant incision with some serous bloody discharge, with dressing changed)
Skin: Warm and Dry
--- NOTE | 2024-08-10 11:05 | CM ---
Addendum entered by Ness Woods RN 08/10/24 15:58:
IMM reviewed and placed on chart.
Original Note:
Reviewed the chart notes. Diet advanced to regular today. Referral sent to [facility] for review. [facility] referral sent yesterday, awaiting decision. CM continues to be available to patient/family and is monitoring medical plan for needs at
discharge.
Plan: Discharge to Acute vs SNF potentially tomorrow. No precert required.
--- NOTE | 2024-08-10 13:28 | PN.CDI ---
CDI
- -
CDI:
Physician Documentation Request
Admit Date: 08/06/24 05:57
Dear Doctor Lashawn,
Please review the following and provide your response in the progress notes.
Clinical Indicators:
Laboratory Tests
08/06/24 08/06/24 08/07/24
18:04 23:54 04:52
Calcium 7.7 L 7.3 L 8.0 L
08/08/24 08/09/24 08/10/24
04:37 04:49 05:16
Calcium 8.1 L 8.4 8.5
Based on the above and your clinical assessment, please clarify in the progress notes, the appropriate diagnosis, if significant, that supports the above abnormalities and additional evaluation, monitoring and/or treatment rendered:
Hypocalcemia, POA, now resolved
Abnormal lab value, clinically insignificant
Other(please specify)
Use of terms such as suspected, likely, concern for, or probable (associated with a specific diagnosis that is being evaluated, monitored, or treated as if it exists) are acceptable and can be coded in the inpatient setting, when documented at the
time of discharge.
Thank you,
Jennifer Xiong RN BSN CCDS
CDI Specialist
please contact via tiger text
Please use your independent medical judgment in providing your response.
--- NOTE | 2024-08-10 13:45 | W.PN.HOSP.TC ---
Today's Communication/Plan
-
continue ARB
monitor diet tolerance
DC planning
Assessment / Plan
Assessment / Plan
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
breathing. Extubated next day. Pending return of bowel function
Assessment:
History of colostomy s/p elective robotic colostomy reversal, lysis of adhesions greater than 3 hours, flexible sigmoidoscopy, repair of cecal injury x 2, laparoscopic tap block 08/06/24
prior hx of Diverticulitis status post ex lap and Hathaway's procedure 04/2024
- CRS following; on regular diet
- continue dressing changes per CRS
post-op VDRF
Subcutaneous emphysema, post-surgical
- extubated, now on RA on floors
- Encouraged incentive spirometry, OOB/ambulation/early mobility
- appreciate pulm input
reactive leukocytosis, improving
Essential Hypertension
- continue ARB
Reflux esophagitis
- continue PPI
Hyperlipidemia
- continue statin
Lumbar stenosis
Parkinson's disease
- continue Sinemet
hx of Skin cancer
Chronic anemia
- continue B12, Iron
Minimally elevated AST
- monitor
DVT ppx: Lovenox
Code: Full
Anticipated Discharge: 24 - 48 hours
Subjective/Interval History
-
Date of Service: August 10, 2024
denies any new complaints at present
now on regular diet and also had a BM
Objective Data
-
Labs:
Laboratory Results
08/10/24
05:16
WBC 9.0
Hgb 9.5 L
Hct 29.4 L
Plt Count 148
Sodium 142
Potassium 3.4 L
Chloride 105
Carbon Dioxide 29
BUN 9
Creatinine 0.8
Glucose 89
Calcium 8.5
Total Bilirubin 0.8
AST 31
ALT < 10
Alkaline Phosphatase 98
Vital Signs:
Vital Signs
Temp Pulse Resp BP Pulse Ox
98.0 F 75 18 160/82 95
08/10/24 07:07 08/10/24 07:07 08/10/24 07:07 08/10/24 07:07 08/10/24 08:00
I&O
08/09/24 08/10/24 08/11/24
06:59 06:59 06:59
Intake Total 1800 / 1800 2019
Output Total 650 / 650 375 / 375
Balance 1150 / 1150 1645 / 1645
Physical Exam
-
General: No Apparent Distress
HEENT: Normocephalic and Atraumatic
Respiratory: Negative Wheezes
Cardiac: Regular Rhythm and S1/S2
GI: Soft and Nontender
Musculoskeletal: No Edema
Neuro: AO x 3
Hematologic / Lymphatic: No Lymphadenopathy
Psych: Calm
Data Reviewed
-
Total Time Spent with Patient (in minutes): 42
Labs: Labs Reviewed by me
[2024-08-10] MEDS: LOVENOX 40 MG SC (17:00)
[2024-08-11] MEDS: TYLENOL 650 MG PO ×5 (05:00→20:51)
[2024-08-11] MEDS: TORADOL 10 MG IV (05:27)
[2024-08-11 06:00] VITALS: BMI 25.4
[2024-08-11 07:04] LABS: Blood Urea Nitrogen 16 mg/dl (7-17); Calcium 8.6 mg/dl (8.4-10.2); Carbon Dioxide 30 mmol/L (22-30); Chloride 103 mmol/L (98-107); Estimated Creatinine Clearance 37 ml/min; Glucose 97 mg/dl (70-99); Potassium 3.3 mmol/L (3.5-5.1); Sodium 140 mmol/L (135-145); eGFR > 60.00
[2024-08-11 07:30] VITALS: BP 132/58
--- NOTE | 2024-08-11 08:19 | W.PN.CRS1 ---
Today's Communication / Plan
-
okay for d/c from our perspective
wound care
Assessment/Plan
-
Assessment: 83-year-old female POD #3 status post RAL colostomy reversal, lysis of adhesions, repair cecal injury x 2
AFVSS
Plan:
-Continue current multimodal analgesic regiment
-Lovenox for DVT prophylaxis. TEDS/SDS in place.
-OR pathology pending.
-Protonix for GI prophylaxis
-Continue regular diet
-OOB as tolerated.
-Daily dressing changes.
-Appreciate hospitalist.
-Dispo: To nursing home facility, okay for discharge from our perspective. All discharge instructions discussed with the patient. Follow up with Dr. Sanchez in 2 weeks for a f/u.
Subjective Data
Procedure
08/06- robotic colostomy reversal, lysis of adhesions greater than 3 hours, flexible sigmoidoscopy, repair of cecal injury x 2, laparoscopic tap block
Subjective Data
Date of Service: August 11, 2024
Patient states she feels well today. She has no nausea or vomiting. Her pain is well controlled. She tolerated a diet without difficulty. She is urinating. She has bowel movements and flatus.
Objective Data
-
Vital Signs
Temp Pulse Resp BP Pulse Ox
97.9 F 77 16 132/58 96
08/11/24 07:30 08/11/24 07:30 08/11/24 07:30 08/11/24 07:30 08/11/24 07:30
Intake & Output
08/10/24 08/11/24 08/12/24
06:59 06:59 06:59
Intake Total 2019 960 / 960
Output Total 375 / 375
Balance 1645 / 1645 960 / 960
Intake:
Oral fluids 1180 / 1180 960 / 960
IV fluids (Total) 840 / 840
Output:
Urine, Voided 375 / 375
Other:
Number of approximated MODERATE 3 2
amounts of urine
Number of approximated LARGE 2
amounts of urine
Number of unmeasured liquid
stools
Rectum 1
Lab Results
08/10/24 05:16
08/11/24 05:14
Physical Exam
-
General: No Acute Distress and AOx3
Abdomen: Soft, Non Distended and Non Tender
Skin: Warm and Dry
Incision: Clear, Dry, Intact
[2024-08-11] MEDS: COZAAR 50 MG PO (08:22)
[2024-08-11] MEDS: LIPITOR 10 MG PO (08:22)
[2024-08-11] MEDS: PROTONIX 40 MG PO (08:23)
[2024-08-11] MEDS: VITAMIN D3 (cholecalciferol) 25 MCG PO (08:23)
[2024-08-11] MEDS: ENTEREG 12 MG PO ×2 (08:23→20:51)
[2024-08-11] MEDS: VITAMIN B-12 1000 MCG PO (08:23)
[2024-08-11] MEDS: SINEMET 25-100 1 TABLET TUBE ×3 (08:24→20:51)
--- NOTE | 2024-08-11 08:35 | W.PN.HOSP.TC ---
Today's Communication/Plan
-
dc planning to [facility] in 24 hours
Assessment / Plan
Assessment / Plan
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
breathing. Extubated next day. Pending return of bowel function
Assessment:
History of colostomy s/p elective robotic colostomy reversal, lysis of adhesions greater than 3 hours, flexible sigmoidoscopy, repair of cecal injury x 2, laparoscopic tap block 08/06/24
prior hx of Diverticulitis status post ex lap and Hathaway's procedure 04/2024
- CRS following; on regular diet
- continue dressing changes per CRS
post-op VDRF
Subcutaneous emphysema, post-surgical
- extubated, now on RA on floors
- Encouraged incentive spirometry, OOB/ambulation/early mobility
- appreciate pulm input
reactive leukocytosis, improving
Essential Hypertension
- continue ARB
Reflux esophagitis
- continue PPI
Hyperlipidemia
- continue statin
Lumbar stenosis
Parkinson's disease
- continue Sinemet
hx of Skin cancer
Chronic anemia
- continue B12, Iron
Minimally elevated AST
- monitor
Hypokalemia
- replete prn
Hypocalcemia, POA, now resolved
DVT ppx: Lovenox
Code: Full
Dispo: [facility] 08/12
Anticipated Discharge: Within 24 hours
Subjective/Interval History
-
Date of Service: August 11, 2024
no complaints
tolerating diet
pain controlled
Objective Data
-
Labs:
Laboratory Results
08/11/24
05:14
Sodium 140
Potassium 3.3 L
Chloride 103
Carbon Dioxide 30
BUN 16
Creatinine 0.9
Glucose 97
Calcium 8.6
Vital Signs:
Vital Signs
Temp Pulse Resp BP Pulse Ox
97.9 F 77 16 132/58 96
08/11/24 07:30 08/11/24 08:22 08/11/24 07:30 08/11/24 08:22 08/11/24 07:30
I&O
08/10/24 08/11/24 08/12/24
06:59 06:59 06:59
Intake Total 2019 / 2019 960 / 960
Output Total 375 / 375
Balance 1645 / 1645 960 / 960
Physical Exam
-
General: No Apparent Distress
HEENT: Normocephalic and Atraumatic
Respiratory: Negative Wheezes
Cardiac: Regular Rhythm
GI: Soft
Genito-urinary: No Costovertebral Tender
Musculoskeletal: No Edema
Neuro: AO x 3
Psych: Calm
Data Reviewed
-
Total Time Spent with Patient (in minutes): 41
Labs: Labs Reviewed by me
--- NOTE | 2024-08-11 08:40 | CON.MD ---
Documented by User: Felicia Galvez PA-C 08/11/24 22:02
Consultation - Medical
-
Referring Provider: Daniel Guzman
Chief Complaint: Debility s/p reversal colectomy
History of Present Illness: 83-year-old female with PMH of (hypertension, hyperlipidemia, anxiety, lumbar spinal stenosis, Parkinson's disease, skin cancer, diverticular stricture) prior hx of Diverticulitis status post ex lap and Hathaway's
procedure 04/2024,came for planned Elan reversal. Now s/p elective robotic colostomy reversal, lysis of adhesions greater than 3 hours, flexible sigmoidoscopy, repair of cecal injury x 2, laparoscopic tap block on 08/06/24 and was intubated
overnight 2/ absent spontaneous breathing. Extubated next day. Pending return of bowel function
She reports to have had a bowel movement today that was normal. Appetite is good. Denies nausea, vomiting, chest pain, sob, abdominal pain. Says pain is under control. Her left shoulder is limited with rom says that it needs surgery.
Chest CT scan 08/07: Subcutaneous emphysema and pneumomediastinum related to prolonged surgery
Past Medical History: hypertension, left shoulder pain, hyperlipidemia, anxiety, lumbar spinal stenosis, Parkinson's disease, skin cancer, diverticular stricture, hx of Diverticulitis
Procedure History: Hathaway's procedure, colostomy s/p elective robotic colostomy reversal, lysis of adhesions greater than 3 hours, flexible sigmoidoscopy, repair of cecal injury x 2, laparoscopic tap block 08/06/24
Family History: not pertinent
Social History:
Functional Level Premorbidly: Independent with all activities . 2 daughters locally that assist as needed. 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
Functional Level Currently: Lower extremity self-care�dependent, bed mobility�mod assist,Transfer�min assist, ambulated�20 feet x2 RW with min assist and rolling walker, grooming-supervision,
Tobacco: Denies
Alcohol: Denies
Drug use: Denies
Lives with: alone
24-hour assistance available:
Number of floors: split level,
# steps to enter: 1
# steps to second floor:6 steps to bedroom/bathroom
Potential First floor set up:
Driving: yes
Occupation: retired, [employer] x 40 years
Allergies:
Allergy/AdvReac Type Severity Reaction Status Date / Time
No Known Allergies Allergy Verified 08/06/24 06:29
Review of Systems:
Constitutional: (x) Normal _
Eye: (x) Normal _
Ear/Nose/Throat: (x) Normal _
Respiratory: (x) Normal _
Cardiovascular: (x) Normal _
Gastrointestinal: (x) reversal colectomy
Genitourinary: (x) Normal _
Musculoskeletal: (x) left shoulder injury, limited rom
Integumentary: (x) Normal _
Neurologic: (x) parkinson's
Psychiatric: (x) Normal
Endocrine: (x) Normal _
Hematologic/Lymphatic: (x) chronic anemia
Allergic/Immunologic: (x) Normal _
Medications:
Active Current Visit Medication List
Category Date Time Status
Acetaminophen [Tylenol] Med 08/06/24 20:00 Active
650 mg PO Q4HWA
Alvimopan [Entereg] Med 08/07/24 08:00 Active
12 mg PO BID
Atorvastatin [Lipitor] Med 08/07/24 08:00 Active
10 mg PO DAILY
Carbidopa/Levodopa [Sinemet 25-100] Med 08/06/24 19:30 Active
1 tablet TUBE TID@0800,1330,1930
Cholecalciferol (Vitamin D3) [VITAMIN D3 ( Med 08/10/24 08:00 Active
cholecalciferol)]
25 mcg PO DAILY
Cyanocobalamin [Vitamin B-12] Med 08/10/24 08:00 Active
1,000 mcg PO DAILY
Enoxaparin Sodium [Lovenox] Med 08/09/24 18:00 Active
40 mg SC QPM
Flush (0.9% Sodium Chloride) [Flush (Nss)] Med 08/06/24 06:00 Active
See Dose Instructions IV PER PROTOCOL
Ketorolac [Toradol] Med 08/06/24 18:00 Active
10 mg IV Q6H
Losartan [Cozaar] Med 08/10/24 08:00 Active
50 mg PO DAILY
Ondansetron Injectable [Zofran] Med 08/06/24 16:59 Active
4 mg IV Q6HPRN PRN
Pantoprazole [Protonix] Med 08/11/24 08:00 Active
40 mg PO DAILY
Tramadol HCl [Ultram] Med 08/11/24 07:31 Active
50 mg PO Q6HPRN PRN
Vitals:
Temp Pulse Resp BP Pulse Ox
97.9 F 77 16 132/58 96
08/11/24 07:30 08/11/24 08:22 08/11/24 07:30 08/11/24 08:22 08/11/24 07:30
Height 5 ft 1 in
Actual Weight 61.037 kg
Body Mass Index (BMI) 25.4
Physical Exam:
General Appearance/Observation: Well-developed, well-nourished individual in no apparent distress.
Pain/Comfort Assessment: Denies
Mood/Affect: Appropriate, pleasant
Integumentary/Operative Site: abdominal incisions with glue and are healing, ostomy incision with dressing
Pressure Ulcer Evaluation: not visualized wearing Teds and socks
Other Type of Wound: bruises arms, small scab left side of face
Eyes: Conjunctiva/Lids: normal Pupils: pupils equal round and reactive to light and Accommodation
Ears/Nose/Throat: oral mucosa moist, throat clear. Lips/Teeth/Gums: normal
Neck: No muscle spasm or tenderness
Cardiovascular: Heart: regular, murmur
Pulses: dorsalis pedis 2+ bilaterally
Respiratory: Respiratory Effort/Chest Expansion: normal Auscultation: Posteriorly clear to auscultation bilaterally, anterior chest crackles?
Gastrointestinal: abdomen not tender, distension, normal abdominal bowel sounds, rumbling
Genitourinary: No Marshall
Extremities: Edema: 1+ bilaterally Cyanosis: None Trophic changes: None
Neurology Exam:
Orientation: Alert, Oriented to self, Time, Place
Memory: Intact for immediate medical concerns
Comprehension: Intact
Two step command: Intact
Naming: Intact
Cranial Nerves:
CNII: Pupillary light reflex: Intact Visual Field: Intact
CN III, IV, : Extraocular muscles: Intact
CN V: Facial Sensation at Forehead: Intact, Maxilla: Intact, Mandible: Intact
CN VII: Facial movement: Symmetric
CN VIII: Hearing: Normal
CN IX/X: Speech & swallow: Normal, Position of Uvula: Midline
CN XI: Shoulder shrug: weakness-left shoulder (injury)
CN XII: Tongue protrusion: Midline
Sensory:
Light touch: Intact in bilateral upper and lower extremities
Reflexes:
Biceps: 2+ bilaterally
Brachioradialis: 2+ bilaterally
Triceps: 2+ bilaterally
Patellar: 2+ left, absent right
Achilles: 1+ bilaterally
Babinski: Down going bilaterally
Clonus: None
Yen: Negative bilaterally
Cerebellar: Dysmetria/Ataxia: None
Musculoskeletal:
Motor: (Manual muscle scale 0-5)
Musculoskeletal: Motor: (Manual muscle scale 0-5)
Muscle SA EF WE EE FF FA HF KE DF EHL PF
Right� 5 5 5 5 5 5 5 5
Left 3 3+ 3+ 5 5 5 5 5
Tone: Normal in all extremities
Range of Motion: Passively within normal limits in all extremities , moderately limited rom of left shoulder
Lab Results
Labs
WBC 9.0 10^3/uL (4.8-10.8) 08/10/24 05:16
RBC 3.48 10^6/uL (4.20-5.40) L 08/10/24 05:16
Hgb 9.5 g/dL (12.0-16.0) L 08/10/24 05:16
Hct 29.4 % (37.0-47.0) L 08/10/24 05:16
MCV 84.5 fL (81.0-99.0) 08/10/24 05:16
MCH 27.3 pg (27.0-31.0) 08/10/24 05:16
MCHC 32.3 g/dL (33.0-37.0) L 08/10/24 05:16
RDW 14.3 % (11.5-14.5) 08/10/24 05:16
Plt Count 148 10^3/uL (130-400) 08/10/24 05:16
MPV 10.7 fL (7.4-10.4) H 08/10/24 05:16
Abs Immat Gran (auto) 0.1 10^3/uL (0-0.05) H 08/09/24 04:49
Absolute Neuts (auto) 8.4 10^3/uL (1.4-6.5) H 08/09/24 04:49
Absolute Lymphs (auto) 1.1 10^3/uL (1.2-3.4) L 08/09/24 04:49
Absolute Monos (auto) 0.8 10^3/uL (0.1-0.6) H 08/09/24 04:49
Absolute Eos (auto) 0.1 10^3/uL (0-0.7) 08/09/24 04:49
Absolute Basos (auto) 0.0 10^3/uL (0-0.2) 08/09/24 04:49
Immature Gran % 0.5 % (0-0.5) 08/09/24 04:49
Neutrophils % 80.0 % (42.2-75.2) H 08/09/24 04:49
Lymphocytes % 10.0 % (20.5-51.1) L 08/09/24 04:49
Monocytes % 7.9 % (1.7-9.3) 08/09/24 04:49
Eosinophils % 1.3 % (0-6) 08/09/24 04:49
Basophils % 0.3 % (0-2) 08/09/24 04:49
Nucleated RBC % 0 % 08/09/24 04:49
PT 13.2 Sec (11.4-14.6) 07/27/24 11:03
INR 0.97 07/27/24 11:03
APTT 31.5 Sec (23.4-35.0) 07/27/24 11:03
pH 7.37 (7.35-7.45) 08/06/24 20:30
pCO2 38 mmHg (32-35) H 08/06/24 20:30
pO2 116 mmHg (83-108) H 08/06/24 20:30
HCO3 22.0 mmol/L (21-28) 08/06/24 20:30
Base Excess -3.0 mmol/L 08/06/24 20:30
ABG O2 Sat (Measured) 99.3 % (94-98) H 08/06/24 20:30
O2 Delivery Level 08/06/24 20:30
Sodium 142 mmol/L (135-145) 08/10/24 05:16
Potassium 3.4 mmol/L (3.5-5.1) L 08/10/24 05:16
Chloride 105 mmol/L (98-107) 08/10/24 05:16
Carbon Dioxide 29 mmol/L (22-30) 08/10/24 05:16
BUN 9 mg/dl (7-17) 08/10/24 05:16
Creatinine 0.8 mg/dL (0.6-1.0) 08/10/24 05:16
Estimated Creat Clear 42 ml/min 08/10/24 05:16
eGFR > 60.00 08/10/24 05:16
Glucose 89 mg/dl (70-99) 08/10/24 05:16
Calcium 8.5 mg/dl (8.4-10.2) 08/10/24 05:16
Magnesium 2.2 mg/dl (1.6-2.3) 08/07/24 04:52
Total Bilirubin 0.8 mg/dl (0.2-1.3) 08/10/24 05:16
AST 31 U/L (14-36) 08/10/24 05:16
ALT < 10 U/L (0-35) 08/10/24 05:16
Alkaline Phosphatase 98 U/L (38-126) 08/10/24 05:16
Total Protein 5.7 g/dl (6.3-8.2) L 08/10/24 05:16
Albumin 3.2 g/dl (3.5-5.0) L 08/10/24 05:16
Blood Type A POS 07/27/24 11:03
Antibody Screen Negative (Negative) 07/27/24 11:03
Diagnostic Results: as per HPI
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
Plan:
PT/OT to increase independence with ADLs, improve balance, coordination, endurance, strength, mobility, community reintegration, decreased burden of care on others and family education.
Debility s/p reversal colectomy: PT/OT
post-op VDRF: Subcutaneous emphysema, post-surgical. incentive spirometry, OOB/ambulation/early mobility
HTN: losartan
HLD: atorvastatin 10mg
Parkinson's disease: carbidopa-levodopa
Coronary artery disease : Aspirin, statin, beta-jonathan
Chronic Anemia: B12, Iron
reactive leukocytosis: improving
Hypokalemia: replenish
Psych/Anxiety: Psychology consult. Monitor mood, adjust medications as needed.
Skin: monitor for pressure sores/rashes/lesions.
Lumbar spinal stenosis:Tramadol
Pain: acetaminophen as needed. Tramadol
Bowel: Colace and Senna, PRN bisacodyl.
Bladder: Time void, PVRs, PRN straight cath.
Reflux esophagitis: Pantoprazole
DVT Prophylaxis: mechanical and lovenox
Pulmonary: Incentive spirometry
Safety: Continue to reinforce assistance with all transfers.
Code Status: Full code
Dispo (date/plan/equipment needs): Home with family care. Social history reviewed.
Functional and Medical Goals: Modified Independent with ADL�s, ambulation, transfers
Discharge Destination: Acute inpatient rehabilitation when patient and labs are stable
Summary of recommendations: would benefit from acute inpatient for PT/OT to increase independence with ADLs, improve balance, coordination, endurance, strength, mobility, community reintegration, decreased burden of care on others and family
education.
Debility s/p reversal colectomy: PT/OT
DVT Prophylaxis: mechanical and lovenox
Pulmonary: Incentive spirometry
Pain: acetaminophen as needed. Tramadol
Bowel: Colace and Senna, PRN bisacodyl.
Bladder: Time void, PVRs, PRN straight cath.
Thank you for allowing me to care for your patient. Please contact me with any questions or concerns.

Documented by User: Gerson Mcfarland MD 08/11/24 23:48
Consultation - Medical
-
Referring Provider: Daniel Guzman
Chief Complaint: Debility s/p reversal colectomy
History of Present Illness: 83-year-old female with PMH of (hypertension, hyperlipidemia, anxiety, lumbar spinal stenosis, Parkinson's disease, skin cancer, diverticular stricture) prior hx of Diverticulitis status post ex lap and Hathaway's
procedure 04/2024,came for planned Elan reversal. Now s/p elective robotic colostomy reversal, lysis of adhesions greater than 3 hours, flexible sigmoidoscopy, repair of cecal injury x 2, laparoscopic tap block on 08/06/24 and was intubated
overnight 10/10 absent spontaneous breathing. Extubated next day. Pending return of bowel function
She reports to have had a bowel movement today that was normal. Appetite is good. Denies nausea, vomiting, chest pain, sob, abdominal pain. Says pain is under control. Her left shoulder is limited with rom says that it needs surgery.
Chest CT scan 08/07: Subcutaneous emphysema and pneumomediastinum related to prolonged surgery
Past Medical History: hypertension, left shoulder pain, hyperlipidemia, anxiety, lumbar spinal stenosis, Parkinson's disease, skin cancer, diverticular stricture, hx of Diverticulitis
Procedure History: Hathaway's procedure, colostomy s/p elective robotic colostomy reversal, lysis of adhesions greater than 3 hours, flexible sigmoidoscopy, repair of cecal injury x 2, laparoscopic tap block 08/06/24
Family History: not pertinent
Social History:
Functional Level Premorbidly: Independent with all activities . 2 daughters locally that assist as needed. 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
Functional Level Currently: Lower extremity self-care�dependent, bed mobility�mod assist,Transfer�min assist, ambulated�20 feet x2 RW with min assist and rolling walker, grooming-supervision,
Tobacco: Denies
Alcohol: Denies
Drug use: Denies
Lives with: alone
24-hour assistance available: No
Number of floors: split level
# steps to enter: 1
# steps to second floor:6 steps to bedroom/bathroom
Potential First floor set up: No
Driving: yes
Occupation: retired, [employer] x 40 years
Allergies:
Allergy/AdvReac Type Severity Reaction Status Date / Time
No Known Allergies Allergy Verified 08/06/24 06:29
Review of Systems:
Constitutional: (x) abNormal _ fatigue
Eye: (x) Normal _
Ear/Nose/Throat: (x) Normal _
Respiratory: (x) Normal _
Cardiovascular: (x) Normal _
Gastrointestinal: (x) reversal colectomy
Genitourinary: (x) Normal _
Musculoskeletal: (x) left shoulder injury, limited rom
Integumentary: (x) Normal _
Neurologic: (x) parkinson's
Psychiatric: (x) Normal
Endocrine: (x) Normal _
Hematologic/Lymphatic: (x) chronic anemia
Allergic/Immunologic: (x) Normal _
Medications:
Active Current Visit Medication List
Category Date Time Status
Acetaminophen [Tylenol] Med 08/06/24 20:00 Active
650 mg PO Q4HWA
Alvimopan [Entereg] Med 08/07/24 08:00 Active
12 mg PO BID
Atorvastatin [Lipitor] Med 08/07/24 08:00 Active
10 mg PO DAILY
Carbidopa/Levodopa [Sinemet 25-100] Med 08/06/24 19:30 Active
1 tablet TUBE TID@0800,1330,1930
Cholecalciferol (Vitamin D3) [VITAMIN D3 ( Med 08/10/24 08:00 Active
cholecalciferol)]
25 mcg PO DAILY
Cyanocobalamin [Vitamin B-12] Med 08/10/24 08:00 Active
1,000 mcg PO DAILY
Enoxaparin Sodium [Lovenox] Med 08/09/24 18:00 Active
40 mg SC QPM
Flush (0.9% Sodium Chloride) [Flush (Nss)] Med 08/06/24 06:00 Active
See Dose Instructions IV PER PROTOCOL
Ketorolac [Toradol] Med 08/06/24 18:00 Active
10 mg IV Q6H
Losartan [Cozaar] Med 08/10/24 08:00 Active
50 mg PO DAILY
Ondansetron Injectable [Zofran] Med 08/06/24 16:59 Active
4 mg IV Q6HPRN PRN
Pantoprazole [Protonix] Med 08/11/24 08:00 Active
40 mg PO DAILY
Tramadol HCl [Ultram] Med 08/11/24 07:31 Active
50 mg PO Q6HPRN PRN
Vitals:
Temp Pulse Resp BP Pulse Ox
97.9 F 77 16 132/58 96
08/11/24 07:30 08/11/24 08:22 08/11/24 07:30 08/11/24 08:22 08/11/24 07:30
Height 5 ft 1 in
Actual Weight 61.037 kg
Body Mass Index (BMI) 25.4
Physical Exam:
General Appearance/Observation: Well-developed, well-nourished female in no apparent distress.
Pain/Comfort Assessment: Denies
Mood/Affect: Appropriate, pleasant
Integumentary/Operative Site: abdominal incisions with glue and are healing, ostomy incision with dressing
Pressure Ulcer Evaluation: not visualized wearing Teds and socks
Other Type of Wound: bruises arms, small scab left side of face
Eyes: Conjunctiva/Lids: normal Pupils: pupils equal round and reactive to light and Accommodation
Ears/Nose/Throat: oral mucosa moist, throat clear. Lips/Teeth/Gums: normal
Neck: No muscle spasm or tenderness
Cardiovascular: Heart: regular, systolic murmur
Pulses: dorsalis pedis 2+ bilaterally
Respiratory: Respiratory Effort/Chest Expansion: normal Auscultation: Posteriorly clear to auscultation bilaterally, anterior chest crackles?
Gastrointestinal: abdomen not tender, distension, normal abdominal bowel sounds, rumbling
Genitourinary: No Marshall
Extremities: Edema: 1+ bilaterally Cyanosis: None Trophic changes: None
Neurology Exam:
Orientation: Alert, Oriented to self, Time, Place
Memory: Intact for immediate medical concerns
Comprehension: Intact
Two step command: Intact
Naming: Intact
Cranial Nerves:
CNII: Pupillary light reflex: Intact Visual Field: Intact
CN III, IV, : Extraocular muscles: Intact
CN V: Facial Sensation at Forehead: Intact, Maxilla: Intact, Mandible: Intact
CN VII: Facial movement: Symmetric
CN VIII: Hearing: Normal
CN IX/X: Speech & swallow: Normal, Position of Uvula: Midline
CN XI: Shoulder shrug: Intact
CN XII: Tongue protrusion: Midline
Sensory:
Light touch: Intact in bilateral upper and lower extremities
Reflexes:
Biceps: 2+ bilaterally
Brachioradialis: 2+ bilaterally
Triceps: 2+ bilaterally
Patellar: 2+ bilaterally
Achilles: 2 bilaterally
Babinski: Down going bilaterally
Clonus: None
Yen: Negative bilaterally
Cerebellar: Dysmetria/Ataxia: None
Musculoskeletal: Motor: (Manual muscle scale 0-5)
Muscle SA EF WE EE FF FA HF KE DF EHL PF
Right� 5 5 5 5 5 5 5 5
Left 2 5 4 5 5 5 5 5
Tone: Normal in all extremities
Range of Motion: Passively within normal limits in all extremities except significantly limited active and passive rom of left shoulder
Lab Results
Labs
WBC 9.0 10^3/uL (4.8-10.8) 08/10/24 05:16
RBC 3.48 10^6/uL (4.20-5.40) L 08/10/24 05:16
Hgb 9.5 g/dL (12.0-16.0) L 08/10/24 05:16
Hct 29.4 % (37.0-47.0) L 08/10/24 05:16
MCV 84.5 fL (81.0-99.0) 08/10/24 05:16
MCH 27.3 pg (27.0-31.0) 08/10/24 05:16
MCHC 32.3 g/dL (33.0-37.0) L 08/10/24 05:16
RDW 14.3 % (11.5-14.5) 08/10/24 05:16
Plt Count 148 10^3/uL (130-400) 08/10/24 05:16
MPV 10.7 fL (7.4-10.4) H 08/10/24 05:16
Abs Immat Gran (auto) 0.1 10^3/uL (0-0.05) H 08/09/24 04:49
Absolute Neuts (auto) 8.4 10^3/uL (1.4-6.5) H 08/09/24 04:49
Absolute Lymphs (auto) 1.1 10^3/uL (1.2-3.4) L 08/09/24 04:49
Absolute Monos (auto) 0.8 10^3/uL (0.1-0.6) H 08/09/24 04:49
Absolute Eos (auto) 0.1 10^3/uL (0-0.7) 08/09/24 04:49
Absolute Basos (auto) 0.0 10^3/uL (0-0.2) 08/09/24 04:49
Immature Gran % 0.5 % (0-0.5) 08/09/24 04:49
Neutrophils % 80.0 % (42.2-75.2) H 08/09/24 04:49
Lymphocytes % 10.0 % (20.5-51.1) L 08/09/24 04:49
Monocytes % 7.9 % (1.7-9.3) 08/09/24 04:49
Eosinophils % 1.3 % (0-6) 08/09/24 04:49
Basophils % 0.3 % (0-2) 08/09/24 04:49
Nucleated RBC % 0 % 08/09/24 04:49
PT 13.2 Sec (11.4-14.6) 07/27/24 11:03
INR 0.97 07/27/24 11:03
APTT 31.5 Sec (23.4-35.0) 07/27/24 11:03
pH 7.37 (7.35-7.45) 08/06/24 20:30
pCO2 38 mmHg (32-35) H 08/06/24 20:30
pO2 116 mmHg (83-108) H 08/06/24 20:30
HCO3 22.0 mmol/L (21-28) 08/06/24 20:30
Base Excess -3.0 mmol/L 08/06/24 20:30
ABG O2 Sat (Measured) 99.3 % (94-98) H 08/06/24 20:30
O2 Delivery Level 08/06/24 20:30
Sodium 142 mmol/L (135-145) 08/10/24 05:16
Potassium 3.4 mmol/L (3.5-5.1) L 08/10/24 05:16
Chloride 105 mmol/L (98-107) 08/10/24 05:16
Carbon Dioxide 29 mmol/L (22-30) 08/10/24 05:16
BUN 9 mg/dl (7-17) 08/10/24 05:16
Creatinine 0.8 mg/dL (0.6-1.0) 08/10/24 05:16
Estimated Creat Clear 42 ml/min 08/10/24 05:16
eGFR > 60.00 08/10/24 05:16
Glucose 89 mg/dl (70-99) 08/10/24 05:16
Calcium 8.5 mg/dl (8.4-10.2) 08/10/24 05:16
Magnesium 2.2 mg/dl (1.6-2.3) 08/07/24 04:52
Total Bilirubin 0.8 mg/dl (0.2-1.3) 08/10/24 05:16
AST 31 U/L (14-36) 08/10/24 05:16
ALT < 10 U/L (0-35) 08/10/24 05:16
Alkaline Phosphatase 98 U/L (38-126) 08/10/24 05:16
Total Protein 5.7 g/dl (6.3-8.2) L 08/10/24 05:16
Albumin 3.2 g/dl (3.5-5.0) L 08/10/24 05:16
Blood Type A POS 07/27/24 11:03
Antibody Screen Negative (Negative) 07/27/24 11:03
Diagnostic Results: as per HPI
Assessment:
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
Plan:
PT/OT to increase independence with ADLs, improve balance, coordination, endurance, strength, mobility, community reintegration, decreased burden of care on others and family education.
Debility s/p reversal colectomy: PT/OT
post-op VDRF: Subcutaneous emphysema, post-surgical. incentive spirometry, OOB/ambulation/early mobility
HTN: losartan
HLD: atorvastatin 10mg
Parkinson's disease: carbidopa-levodopa
Coronary artery disease : Aspirin, statin, beta-jonathan
Chronic Anemia: B12, Iron
reactive leukocytosis: improving
Hypokalemia: replenish
Psych/Anxiety: Psychology consult. Monitor mood, adjust medications as needed.
Skin: monitor for pressure sores/rashes/lesions.
Lumbar spinal stenosis:Tramadol
Pain: acetaminophen as needed. Tramadol
Bowel: Colace and Senna, PRN bisacodyl.
Bladder: Time void, PVRs, PRN straight cath.
Reflux esophagitis: Pantoprazole
DVT Prophylaxis: mechanical and lovenox
Pulmonary: Incentive spirometry
Safety: Continue to reinforce assistance with all transfers.
Code Status: Full code
Dispo (date/plan/equipment needs): Home with family care. Social history reviewed.
Functional and Medical Goals: Modified Independent with ADL�s, ambulation, transfers
Discharge Destination: Acute inpatient rehabilitation when patient and labs are stable
Attending Statement:
I saw and examined the patient today. Reviewed care plan with patient, therapy, nursing, and physician data assistant. I agree with the above subjective and physical exam, and plan as documented by KAYLEIGH Galvez with adjustments made as necessary.
Summary of recommendations: would benefit from acute inpatient for PT/OT to increase independence with ADLs, improve balance, coordination, endurance, strength, mobility, community reintegration, decreased burden of care on others and family
education.
Debility s/p reversal colectomy: PT/OT
DVT Prophylaxis: mechanical and lovenox
Pulmonary: Incentive spirometry
Pain: acetaminophen as needed. Tramadol
Bowel: Colace and Senna, PRN bisacodyl.
Bladder: Time void, PVRs, PRN straight cath.
Thank you for allowing me to care for your patient. Please contact me with any questions or concerns.
--- NOTE | 2024-08-11 11:00 | PTCARENOTE ---
Patient had small amount of bright red blood per rectum this morning when having a bowel movement. Small amount seen on gown and toilet paper. Hemorrhoid observed. Elle Cadet PAC made aware. Hemorrhoid medication ordered and given. Will
continue to observe.
[2024-08-11] MEDS: TORADOL IV (12:31)
[2024-08-11] MEDS: PROCTOFOAM-HC FOAM 10 GM RECTAL (12:54)
--- NOTE | 2024-08-11 13:45 | CM ---
Reviewed the chart notes and spoke with the patient at the bedside. [facility] will accept the patient tomorrow morning. Patient received a dose of IV Toradol this morning and [facility] policy is no IV medications for 24hrs. continues to be available
to patient/family and is monitoring medical plan for needs at discharge.
Plan: Discharge to [facility] rehab tomorrow.
Call report to: [phone]
[2024-08-11] MEDS: KCL 40 MEQ PO (14:00)
[2024-08-11 15:25] VITALS: BP 137/82
[2024-08-11] MEDS: LOVENOX 40 MG SC (18:18)
[2024-08-11 23:49] VITALS: BP 162/83
[2024-08-12] VITALS: BP 146/64
[2024-08-12] MEDS: TYLENOL 650 MG PO ×4 (00:33→12:55)
[2024-08-12 04:47] VITALS: BMI 25.9
[2024-08-12 07:15] LABS: Blood Urea Nitrogen 25 mg/dl (7-17); Calcium 8.7 mg/dl (8.4-10.2); Carbon Dioxide 27 mmol/L (22-30); Chloride 104 mmol/L (98-107); Estimated Creatinine Clearance 42 ml/min; Glucose 97 mg/dl (70-99); Potassium 3.7 mmol/L (3.5-5.1); Sodium 140 mmol/L (135-145); eGFR > 60.00
--- NOTE | 2024-08-12 08:43 | W.PN.HOSP.TC ---
Today's Communication/Plan
-
[facility] discharge today
Assessment / Plan
Assessment / Plan
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
breathing. Extubated next day. Pending return of bowel function
Assessment:
History of colostomy s/p elective robotic colostomy reversal, lysis of adhesions greater than 3 hours, flexible sigmoidoscopy, repair of cecal injury x 2, laparoscopic tap block 08/06/24
prior hx of Diverticulitis status post ex lap and Hathaway's procedure 04/2024
- CRS following; on regular diet
- continue dressing changes per CRS
post-op VDRF
Subcutaneous emphysema, post-surgical
- extubated, now on RA on floors
- Encouraged incentive spirometry, OOB/ambulation/early mobility
- appreciate pulm input
reactive leukocytosis, improving
Essential Hypertension
- continue ARB
Reflux esophagitis
- continue PPI
Hyperlipidemia
- continue statin
Lumbar stenosis
Parkinson's disease
- continue Sinemet
hx of Skin cancer
Chronic anemia
- continue B12, Iron
Minimally elevated AST
- monitor
Hypokalemia
- replete prn
Hypocalcemia, POA, now resolved
DVT ppx: Lovenox
Code: Full
Dispo: [facility] discharge today
More than 30 minutes spent in discharge including
Final examination of the patient
Summarizing hospital stay
Instructions for continuing care to all relevant caregivers
Preparation of discharge records, prescriptions, and referral forms
Total time spent (in minutes): 41
Anticipated Discharge: Today
Subjective/Interval History
-
Date of Service: August 12, 2024
no complaints presently
for transfer to [facility] today
Objective Data
-
Labs:
Laboratory Results
08/12/24
04:42
Sodium 140
Potassium 3.7
Chloride 104
Carbon Dioxide 27
BUN 25 H
Creatinine 0.8
Glucose 97
Calcium 8.7
Vital Signs:
Vital Signs
Temp Pulse Resp BP Pulse Ox
98.6 F 76 16 146/64 91
08/11/24 23:49 08/12/24 00:00 08/11/24 23:49 08/12/24 00:00 08/11/24 23:49
I&O
08/11/24 08/12/24 08/13/24
06:59 06:59 06:59
Intake Total 960 / 960 560 / 560
Balance 960 / 960 560 / 560
Physical Exam
-
General: No Apparent Distress
HEENT: Normocephalic and Atraumatic
Respiratory: Rales; Negative Wheezes
Cardiac: Regular Rhythm and S1/S2
GI: Soft and Nontender
Genito-urinary: No Costovertebral Tender
Musculoskeletal: No Edema
Neuro: AO x 3
Hematologic / Lymphatic: No Lymphadenopathy
Psych: Calm
Data Reviewed
-
Total Time Spent with Patient (in minutes): 41
Labs: Labs Reviewed by me
--- NOTE | 2024-08-12 08:49 | W.DS.TRANS ---
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
-
Discharge Instructions:
Sleep Apnea Risk Low
Discharge Diagnosis/Procedures colostomy s/p elective robotic colostomy
reversal, lysis of adhesions greater than 3
hours, flexible sigmoidoscopy, repair of cecal
injury x 2, laparoscopic tap block 08/06/24
Diet Regular
Activity No strenuous activity
Additional Activity No lifting over 10lbs (gallon of milk)
Driving Restrictions Not until seen by your Dr
Bathing Restrictions OK to Shower
Wound Care Change LLQ bandage daily and as needed with dry
gauze and paper tape. Okay to leave open to air
to shower, then replace with gauze.
Instructions:
Stand-Alone Forms:
Changes to Home Medications: No
Discharge Medications:
DC Medications w/original date entered in [facility]
atorvastatin 10 mg tablet 10 mg PO DAILY High Cholesterol 04/08/24
carbidopa 25 mg-levodopa 100 mg tablet 1 tab PO TID@0800,1330,1930 Neurological Condition 04/08/24
cholecalciferol (vitamin D3) 25 mcg (1,000 unit) tablet (Vitamin D3) 25 mcg PO DAILY Supplement 04/08/24
cyanocobalamin (vitamin B-12) 1,000 mcg tablet 1,000 mcg PO DAILY Supplement 04/08/24
losartan 50 mg tablet 50 mg PO DAILY Blood Pressure 04/08/24
acetaminophen 325 mg tablet 650 mg (2 x 325 mg) PO Q4HPRN PRN mild pain/ fever>100.5F #0 tabs 04/20/24
hydrocortisone 1 %-pramoxine 1 % rectal foam (Proctofoam HC) 1 applic GA TIDPRN PRN anal irritation #10 grams 08/12/24
pantoprazole 40 mg tablet,delayed release 40 mg PO DAILY #30 tabs 08/12/24
tramadol 50 mg tablet 50 mg PO Q6HPRN PRN moderate pain #15 tabs 08/12/24
Home Medication Changes
Pending Results: No
Total time spent discharging patient (in min): 41
[2024-08-12] MEDS: ENTEREG 12 MG PO (08:50)
[2024-08-12] MEDS: VITAMIN B-12 1000 MCG PO (08:50)
[2024-08-12] MEDS: PROTONIX 40 MG PO (08:50)
[2024-08-12] MEDS: SINEMET 25-100 1 TABLET TUBE ×2 (08:50→12:55)
[2024-08-12] MEDS: LIPITOR 10 MG PO (08:50)
[2024-08-12] MEDS: VITAMIN D3 (cholecalciferol) 25 MCG PO (08:50)
[2024-08-12 08:51] VITALS: BP 161/86
[2024-08-12] MEDS: COZAAR 50 MG PO (08:51)
--- NOTE | 2024-08-12 10:36 | W.PN.CRS1 ---
Today's Communication / Plan
-
discharge
Assessment/Plan
-
Assessment: 83-year-old female POD #4 status post RAL colostomy reversal, lysis of adhesions, repair cecal injury x 2
AFVSS
Plan:
-Continue current multimodal analgesic regiment
-Lovenox for DVT prophylaxis. TEDS/SDS in place.
-OR pathology pending.
-Protonix for GI prophylaxis
-Continue regular diet
-OOB as tolerated.
-Daily dressing changes.
-Appreciate hospitalist.
-Dispo: To nursing home facility, okay for discharge from our perspective. All discharge instructions discussed with the patient. Follow up with Dr. Sanchez in 2 weeks for a f/u.
Subjective Data
Procedure
08/06- robotic colostomy reversal, lysis of adhesions greater than 3 hours, flexible sigmoidoscopy, repair of cecal injury x 2, laparoscopic tap block
Subjective Data
Date of Service: August 12, 2024
Patient states she is feeling well. She has no nausea or vomiting. She is tolerating a diet. She is looking forward to rehab.
Objective Data
-
Vital Signs
Temp Pulse Resp BP Pulse Ox
98.1 F 76 18 161/86 96
08/12/24 08:51 08/12/24 08:51 08/12/24 08:51 08/12/24 08:51 08/12/24 08:51
Intake & Output
08/11/24 08/12/24 08/13/24
06:59 06:59 06:59
Intake Total 960 / 960 560 / 560
Balance 960 / 960 560 / 560
Intake:
Oral fluids 960 / 960 560 / 560
Other:
Number of approximated SMALL 1
amounts of urine
Number of approximated MODERATE 2 1
amounts of urine
Number of unmeasured liquid
stools
Rectum 1
Lab Results
08/10/24 05:16
08/12/24 04:42
Physical Exam
-
General: No Acute Distress and AOx3
Abdomen: Soft, Non Distended and Non Tender
Skin: Warm and Dry
Incision: Clear, Dry, Intact
[2024-08-12 11:51] VITALS: BP 123/73
== END 2024-08-12 15:26 | DRG 329 ==
LOC: 2 SOUTH 05:57
PROVIDERS: Hospitalist; Internal Medicine; Nurse Practitioner Family; Surgery; ADMITTING PHYSICIAN Surgery; ATTENDING PHYSICIAN Internal Medicine; CONSULT PHYSICIAN Physical Medicine & Rehabilitation; FAMILY PHYSICIAN Internal Medicine; OTHER PHYSICIAN Internal Medicine
PROC: 0DQH4ZZ Repair Cecum, Percutaneous Endoscopic Approach (ICD-10-PCS; 2024-08-06)
PROC: 8E0W4CZ Robotic Assisted Procedure of Trunk Region, Percutaneous Endoscopic Approach (ICD-10-PCS; 2024-08-06)
PROC: 0DNH4ZZ Release Cecum, Percutaneous Endoscopic Approach (ICD-10-PCS; 2024-08-06)
PROC: 0DN84ZZ Release Small Intestine, Percutaneous Endoscopic Approach (ICD-10-PCS; 2024-08-06)
PROC: 0DQU4ZZ Repair Omentum, Percutaneous Endoscopic Approach (ICD-10-PCS; 2024-08-06)
PROC: 0DSM4ZZ Reposition Descending Colon, Percutaneous Endoscopic Approach (ICD-10-PCS; 2024-08-06)
PROC: 0DNU4ZZ Release Omentum, Percutaneous Endoscopic Approach (ICD-10-PCS; 2024-08-06)
DX: Z43.3 Encounter for attention to colostomy (principal); J95.821 Acute postprocedural respiratory failure; K65.1 Peritoneal abscess; D62 Acute posthemorrhagic anemia; K91.71 Accidental puncture and laceration of a digestive system organ or structure during a digestive system procedure; I10 Essential (primary) hypertension; E78.5 Hyperlipidemia, unspecified; G20.A1 Parkinson's disease without dyskinesia, without mention of fluctuations; M48.061 Spinal stenosis, lumbar region without neurogenic claudication; F41.9 Anxiety disorder, unspecified; D64.9 Anemia, unspecified; K21.00 Gastro-esophageal reflux disease with esophagitis, without bleeding; E87.6 Hypokalemia; E83.51 Hypocalcemia; I25.10 Atherosclerotic heart disease of native coronary artery without angina pectoris; T81.82XA Emphysema (subcutaneous) resulting from a procedure, initial encounter; I95.2 Hypotension due to drugs; T41.1X5A Adverse effect of intravenous anesthetics, initial encounter; Y83.8 Other surgical procedures as the cause of abnormal reaction of the patient, or of later complication, without mention of misadventure at the time of the procedure; K66.0 Peritoneal adhesions (postprocedural) (postinfection); Z79.899 Other long term (current) drug therapy; Z85.828 Personal history of other malignant neoplasm of skin
CPT/HCPCS: 88304; 88307; 36415; 71045; 71046; 71250; 80048; 80053; 82805; 83735; 85025; 85027; 85610; 85730; 86850; 86900; 86901; 93005; 94002; 94003; 97116; 97163; 97167; 97530; 97535; A4300